=== PATIENT | female | born 1955 | race Caucasian/White ===

== ENCOUNTER → 2018-01-12 11:23 | Outpatient (CLI) | payer BC, SELFPAY ==
[2018-01-12 12:36] LABS: Absolute Lymphocyte Count 1.48 X10^3/ul (0.83-4.51); Absolute Neutrophil Count 4.3 X10^3/uL (2.0-7.7); Basophil# 0.02 X10^3/uL; Basophil% 0.3 % (0-1); Eosinophils% 4.6 % (0-5); Hematocrit 37.6 % (37-47); Hemoglobin 12.1 g/dl (12.0-15.0); Lymphocyte # 1.48 X10^3/ul (4.0); Lymphocyte % 22.5 % (19-41); Mean Corp Hgb Conc 32.2 g/gl (32-36); Mean Corpuscular Hgb 28.6 pg (27.0-32.0); Mean Corpuscular Volume 88.9 fL (81-99); Mean Platelet Vol. 11.8 fl (6.2-12.0); Monocyte# 0.51 X10^3/uL; Monocyte% 7.8 % (0-10); Neutrophil # 4.26 X10^3/uL (2.7-7.7); Neutrophil % 64.6 % (47-70); Platelet Count 218 K/mm3 (150-450); RBC Distribution Width CV 13.9 % (11.6-14.6); RBC Distribution Width SD 44.5 fl (35.1-43.9); Red Blood Count 4.23 M/mm3 (4.2-5.4); White Blood Count 6.6 K/mm3 (4.4-11.0)
[2018-01-12 12:40] LABS: POSITIVE COUNT NO; POSITIVE DIFFERENTIAL NO; POSITIVE MORPHOLOGY NO
[2018-01-12 13:03] LABS: AST(SGOT) 36 U/L (15-37); Alanine Aminotransfer ALT/SGPT 45 U/L (13-56); Albumin, Serum 3.9 g/dL (3.2-5.0); Alkaline Phosphatase 119 U/L (45-117); Anion Gap 11 (5-15); BUN 33 mg/dL (7-18); BUN/Creat Ratio 24.1 RATIO (10-20); Calcium,Total 9.7 mg/dL (8.5-10.1); Chloride 105 mmol/L (98-107); Creatinine, Serum 1.37 mg/dL (0.55-1.02); EST Glomerular Filtration Rate 41 mL/min (>60); Est Glom Filt Rate - Afr Amer 50 mL/min (>60); Glucose 114 mg/dL (74-106); Potassium 4.7 mmol/L (3.5-5.1); Protein, Total 7.9 g/dL (6.4-8.2); Sodium Level 141 mmol/L (136-145); Thyroid Stim Hormone (TSH) 2.06 uIU/mL (0.358-3.74)
[2018-01-12 13:12] LABS: Vitamin D,25 Hydroxy 50.5 ng/mL (29.95-100.01)
== END ==
PROVIDERS: Family Provider Family Medicine Geriatric Medicine; PCP Family Medicine Geriatric Medicine; Visit Provider Family Medicine Geriatric Medicine
DX: E11.9 Type 2 diabetes mellitus without complications (principal); E55.9 Vitamin D deficiency, unspecified; I10 Essential (primary) hypertension
CPT/HCPCS: 36415; 80053; 82306; 84443; 85025

== ENCOUNTER → 2018-04-12 14:21 | Outpatient (CLI) | payer BC, SELFPAY ==
[2018-04-12 15:03] LABS: Absolute Lymphocyte Count 1.99 X10^3/ul (0.83-4.51); Absolute Neutrophil Count 3.8 X10^3/uL (2.0-7.7); Basophil# 0.03 X10^3/uL; Basophil% 0.4 % (0-1); Eosinophil# 0.32 X10^3/uL; Eosinophils% 4.8 % (0-5); Hematocrit 38.9 % (37-47); Hemoglobin 12.4 g/dl (12.0-15.0); Lymphocyte # 1.99 X10^3/ul (4.0); Lymphocyte % 29.7 % (19-41); Mean Corp Hgb Conc 31.9 g/gl (32-36); Mean Corpuscular Hgb 27.6 pg (27.0-32.0); Mean Corpuscular Volume 86.4 fL (81-99); Mean Platelet Vol. 11.4 fl (6.2-12.0); Monocyte# 0.53 X10^3/uL; Monocyte% 7.9 % (0-10); Neutrophil # 3.82 X10^3/uL (2.7-7.7); Neutrophil % 57.2 % (47-70); Platelet Count 237 K/mm3 (150-450); RBC Distribution Width CV 13.9 % (11.6-14.6); RBC Distribution Width SD 43.9 fl (35.1-43.9); White Blood Count 6.7 K/mm3 (4.4-11.0)
[2018-04-12 15:07] LABS: POSITIVE COUNT NO; POSITIVE DIFFERENTIAL NO; POSITIVE MORPHOLOGY NO
[2018-04-12 15:26] LABS: Vitamin D,25 Hydroxy 43.1 ng/mL (29.95-100.01)
[2018-04-12 15:30] LABS: AST(SGOT) 32 U/L (15-37); Alanine Aminotransfer ALT/SGPT 45 U/L (13-56); Alkaline Phosphatase 98 U/L (45-117); Anion Gap 8 (5-15); BUN 34 mg/dL (7-18); BUN/Creat Ratio 26.4 RATIO (10-20); Calcium,Total 9.4 mg/dL (8.5-10.1); Chloride 105 mmol/L (98-107); Creatinine, Serum 1.29 mg/dL (0.55-1.02); EST Glomerular Filtration Rate 44 mL/min (>60); Est Glom Filt Rate - Afr Amer 54 mL/min (>60); Glucose 104 mg/dL (74-106); Potassium 4.1 mmol/L (3.5-5.1); Sodium Level 137 mmol/L (136-145); Thyroid Stim Hormone (TSH) 1.78 uIU/mL (0.358-3.74)
--- OUTSIDE RECORDS SUMMARY | 2018-07-15 06:43 | XMS RPT_ITS ---
:1955 Author Organization [facility] Care Team Providers Name Role Phone Kee, Donta Chi Attending Unavailable Kee, Donta Chi Primary Care Unavailable Kee, Donta Chi Attending Unavailable Kee, Donta Chi Primary Care Unavailable Kee, Donta Chi Attending Unavailable Kee, Donta Chi Primary Care Unavailable PROBLEMS PROBLEMS No Problem Records FoundPROCEDURES PROCEDURES No Procedure Records FoundRESULTS RESULTS CBC W/DIFF, AUTOMATED Collected: 04/12/2018 Status: F Source: [place] 2:26 PM [facility] REPOSITORY TYPE CODE TESTS RESULT OUT OF RANGE REFERENCE UNITS LAB L100.1000 4.4-11.0 K/mm3 Normal WBC 6.7 LAB L100.1200 4.2-5.4 M/mm3 Normal RBC 4.50 LAB L100.1300 12.0-15.0 g/dl Normal HGB 12.4 LAB L100.1400 37-47 % Normal HCT 38.9 LAB L100.1500 81-99 fL Normal MCV 86.4 LAB L100.1600 27.0-32.0 pg Normal MCH 27.6 LAB L100.1700 32-36 g/gl Low MCHC 31.9 LAB L100.1810 11.6-14.6 % Normal RDW CV 13.9 LAB L100.1820 35.1-43.9 fl Normal RDW SD 43.9 LAB L100.1900 150-450 K/mm3 Normal PLT 237 LAB L100.2000 6.2-12.0 fl Normal MPV 11.4 LAB L100.2100 47-70 % Normal NEUT% 57.2 LAB L100.2200 19-41 % Normal LY% 29.7 LAB L100.2300 0-10 % Normal MONO% 7.9 LAB L100.2400 0-5 % Normal EO% 4.8 LAB L100.2500 0-1 % Normal BASO% 0.4 LAB L100.2550 0.0-0.9 % Normal IM GRAN % 0.000 Result Comment: IG% - Immature Granulocytes (promyelocytes, myelocytes and metamyelocytes) > 1% indicates that a LEFT SHIFT is Present. LAB L100.2620 2.0-7.7 X10 3/uL Normal Absolute Neut 3.8 LAB L100.2720 0.83-4.51 X10 3/ul Normal Absolute Lymph 1.99 Performed By: #### L100.0100 #### [facility] [address] [place], [place], [address] VITAMIN D,25 HYDROXY Collected: 04/12/2018 Status: F Source: [place] 2:26 PM [facility] REPOSITORY TYPE CODE TESTS RESULT OUT OF RANGE REFERENCE UNITS LAB L506.1000 29.95-100.01 ng/mL Normal Vitamin D 43.1 25-OH Result Comment: Vitamin D 25(OH) Status Range Deficiency <20 ng/mL (50nmol/L) Insuffciency 20 - 30 ng/mL (50 - 75 nmol/L) Sufficiency 30 - 100 ng/mL (75 - 250 nmol/L) Toxicity >100 ng/mL (>250 nmol/L) Performed By: #### L506.1000 #### [facility] [address] [place], [address] COMPREHENSIVE METABOLIC Collected: 04/12/2018 Status: F Source: [facility] 2:26 PM [facility] REPOSITORY TYPE CODE TESTS RESULT OUT OF RANGE REFERENCE UNITS LAB L501.0100 74-106 mg/dL Normal GLU 104 Result Comment: Fasting Glucose result from 100 to 125 mg/dL suggests IMPAIRED HOMEOSTASIS per A.D.A. criteria. Please note revised GLUCOSE reference range effective 2017. LAB L501.1000 7-18 mg/dL High BUN 34 LAB L501.1100 0.55-1.02 mg/dL High CREAT,SERUM 1.29 Result Comment: The validity of the calculated GFR AND GFRAA in patients over 70 years has not been determined. Clinical correlation is essential. LAB L501.1110 >60 mL/min Low EST GFR 44 Result Comment: Non- GFR Calc LAB L501.1115 >60 mL/min Low EST GFR - AA 54 Result Comment: GFR Calc LAB L501.1300 10-20 RATIO High BUN/CRE 26.4 LAB L501.1500 6.4-8.2 g/dL T Normal PROT 8.0 LAB L501.1800 3.2-5.0 g/dL Normal ALB 4.0 LAB L501.1950 2.2-4.2 g/dL Normal GLOB 4.0 LAB L501.2000 0.9-2.4 RATIO Normal A/G 1.0 LAB L501.2200 8.5-10.1 mg/dL CA Normal 9.4 LAB L501.4100 15-37 U/L Normal AST 32 LAB L501.4305 45-117 U/L Normal ALK P 98 LAB L501.4405 13-56 U/L Normal ALT 45 LAB L501.4600 0.20-1.00 mg/dL T Normal BILI 0.50 LAB L501.5300 136-145 mmol/L NA Normal 137 LAB L501.5600 3.5-5.1 mmol/L K Normal 4.1 LAB L501.5900 98-107 mmol/L CL Normal 105 LAB L501.6100 21.0-32.0 mmol/L Normal CO2 24.0 LAB L501.6200 5-15 Normal GAP 8 Performed By: #### L500.4050, L501.9520 #### [facility] [address] [place], [address] THYROID STIM HORMONE Collected: 04/12/2018 Status: F Source: [place] (TSH) 2:26 PM [facility] REPOSITORY TYPE CODE TESTS RESULT OUT OF RANGE REFERENCE UNITS LAB L501.9520 0.358-3.74 uIU/mL Normal TSH 1.78 Performed By: #### L500.4050, L501.9520 #### [facility] [address] [place], [address] CBC W/DIFF, AUTOMATED Collected: 01/12/2018 Status: F Source: [place] 11:26 AM [facility] REPOSITORY TYPE CODE TESTS RESULT OUT OF RANGE REFERENCE UNITS LAB L100.1000 4.4-11.0 K/mm3 Normal WBC 6.6 LAB L100.1200 4.2-5.4 M/mm3 Normal RBC 4.23 LAB L100.1300 12.0-15.0 g/dl Normal HGB 12.1 LAB L100.1400 37-47 % Normal HCT 37.6 LAB L100.1500 81-99 fL Normal MCV 88.9 LAB L100.1600 27.0-32.0 pg Normal MCH 28.6 LAB L100.1700 32-36 g/gl Normal MCHC 32.2 LAB L100.1810 11.6-14.6 % Normal RDW CV 13.9 LAB L100.1820 35.1-43.9 fl High RDW SD 44.5 LAB L100.1900 150-450 K/mm3 Normal PLT 218 LAB L100.2000 6.2-12.0 fl Normal MPV 11.8 LAB L100.2100 47-70 % Normal NEUT% 64.6 LAB L100.2200 19-41 % Normal LY% 22.5 LAB L100.2300 0-10 % Normal MONO% 7.8 LAB L100.2400 0-5 % Normal EO% 4.6 LAB L100.2500 0-1 % Normal BASO% 0.3 LAB L100.2550 0.0-0.9 % Normal IM GRAN % 0.200 Result Comment: IG% - Immature Granulocytes (promyelocytes, myelocytes and metamyelocytes) > 1% indicates that a LEFT SHIFT is Present. LAB L100.2620 2.0-7.7 X10 3/uL Normal Absolute Neut 4.3 LAB L100.2720 0.83-4.51 X10 3/ul Normal Absolute Lymph 1.48 Performed By: #### L100.0100 #### [facility] [place], [address] COMPREHENSIVE METABOLIC Collected: 01/12/2018 Status: F Source: [place] [facility] 11:26 AM [facility] REPOSITORY TYPE CODE TESTS RESULT OUT OF RANGE REFERENCE UNITS LAB L501.0100 74-106 mg/dL High GLU 114 Result Comment: Fasting Glucose result from 100 to 125 mg/dL suggests IMPAIRED HOMEOSTASIS per A.D.A. criteria. Please note revised GLUCOSE reference range effective 2017. LAB L501.1000 7-18 mg/dL High BUN 33 LAB L501.1100 0.55-1.02 mg/dL High CREAT,SERUM 1.37 Result Comment: The validity of the calculated GFR AND GFRAA in patients over 70 years has not been determined. Clinical correlation is essential. LAB L501.1110 >60 mL/min Low EST GFR 41 Result Comment: Non- GFR Calc LAB L501.1115 >60 mL/min Low EST GFR - AA 50 Result Comment: GFR Calc LAB L501.1300 10-20 RATIO High BUN/CRE 24.1 LAB L501.1500 6.4-8.2 g/dL T Normal PROT 7.9 LAB L501.1800 3.2-5.0 g/dL Normal ALB 3.9 LAB L501.1950 2.2-4.2 g/dL Normal GLOB 4.0 LAB L501.2000 0.9-2.4 RATIO Normal A/G 1.0 LAB L501.2200 8.5-10.1 mg/dL CA Normal 9.7 LAB L501.4100 15-37 U/L Normal AST 36 LAB L501.4305 45-117 U/L High ALK P 119 LAB L501.4405 13-56 U/L Normal ALT 45 LAB L501.4600 0.20-1.00 mg/dL T Normal BILI 0.40 LAB L501.5300 136-145 mmol/L NA Normal 141 LAB L501.5600 3.5-5.1 mmol/L K Normal 4.7 LAB L501.5900 98-107 mmol/L CL Normal 105 LAB L501.6100 21.0-32.0 mmol/L Normal CO2 25.0 LAB L501.6200 5-15 Normal GAP 11 Performed By: #### L500.4050, L501.9520 #### [facility] [address] [place], [place], [id number] THYROID STIM HORMONE Collected: 01/12/2018 Status: F Source: [place] (TSH) 11:26 AM [facility] REPOSITORY TYPE CODE TESTS RESULT OUT OF RANGE REFERENCE UNITS LAB L501.9520 0.358-3.74 uIU/mL Normal TSH 2.06 Performed By: #### L500.4050, L501.9520 #### [facility] [address] [place], [address] VITAMIN D,25 HYDROXY Collected: 01/12/2018 Status: F Source: [place] 11:26 AM [facility] REPOSITORY TYPE CODE TESTS RESULT OUT OF RANGE REFERENCE UNITS LAB L506.1000 29.95-100.01 ng/mL Normal Vitamin D 50.5 25-OH Result Comment: Vitamin D 25(OH) Status Range Deficiency <20 ng/mL (50nmol/L) Insuffciency 20 - 30 ng/mL (50 - 75 nmol/L) Sufficiency 30 - 100 ng/mL (75 - 250 nmol/L) Toxicity >100 ng/mL (>250 nmol/L) Performed By: #### L506.1000 #### [facility] [address] [place], [address] ALLERGIES ALLERGIES No Allergies Records FoundENCOUNTERS ENCOUNTERS ADMIT/DISCHARGE ACCOUNT ADMITTING ENCOUNTER LOCATION SOURCE NUMBER CLASS 04/12/[id number] ing:POLAB3 Repository 01/12/2018 [id number] [facility] ing:POLAB3 Repository 10/27/[id number] ing:LAB.FUTUR Repository E PAYERS PAYERS ENCOUNTER GUARANTOR PAYER SUBSCRIBER SOURCE 04/12/2018 CAN ROTHMAN59 Primary MARION L Koko TR Insurance:ANTHEMPolic WILLISDOB: [address] Number: [id number]: [id number] Repository Date:[id number] [address]OX () [id number], [place] [address]XZ: 04/12/2018 Secondary NOT GIVENUNK Koko Insurance:SELF PAY [facility] Number: Effective Repository Date:2018-04-12 01/12/2018 CAN ROTHMAN59 Primary MARION L Koko TR Insurance:ANTHEMPolic MALCOLMSDOB: [address], y Number: [id number]: [id number] Repository Date:4936-06-72PP [address] () [id number], [place] [address]KN: 01/12/2018 Secondary NOT GIVENUNK [place] Insurance:SELF PAY [facility] Number: Effective Repository Date:2018-01-12 10/27/2017 CAN ROTHMAN59 Primary MARION L Koko TR Insurance:ANTHEMPolic WILLISDOB: [address], y Number: [id number]: [id number] Repository Date:7396-02-98KD [address]OX () [address], [place] [address]HN: 10/27/2017 Secondary NOT GIVENUNK [place] Insurance:SELF PAY [facility] Number: Effective Repository Date:2017-10-27
== END ==
PROVIDERS: Family Provider Family Medicine Geriatric Medicine; PCP Family Medicine Geriatric Medicine; Visit Provider Family Medicine Geriatric Medicine
DX: E11.9 Type 2 diabetes mellitus without complications (principal); E55.9 Vitamin D deficiency, unspecified; I10 Essential (primary) hypertension
CPT/HCPCS: 36415; 80053; 82306; 84443; 85025

== ENCOUNTER → 2018-07-20 11:58 | Outpatient (CLI) | payer BC, SELFPAY ==
[2018-07-20 12:42] LABS: Absolute Lymphocyte Count 1.58 X10^3/ul (0.83-4.51); Absolute Neutrophil Count 4.1 X10^3/uL (2.0-7.7); Basophil# 0.02 X10^3/uL; Basophil% 0.3 % (0-1); Eosinophil# 0.44 X10^3/uL; Eosinophils% 6.5 % (0-5); Hematocrit 40.6 % (37-47); Hemoglobin 12.9 g/dl (12.0-15.0); Lymphocyte # 1.58 X10^3/ul (4.0); Lymphocyte % 23.2 % (19-41); Mean Corp Hgb Conc 31.8 g/gl (32-36); Mean Corpuscular Volume 88.1 fL (81-99); Monocyte# 0.65 X10^3/uL; Monocyte% 9.5 % (0-10); Neutrophil # 4.11 X10^3/uL (2.7-7.7); Neutrophil % 60.2 % (47-70); Platelet Count 216 K/mm3 (150-450); RBC Distribution Width CV 14.8 % (11.6-14.6); RBC Distribution Width SD 47.6 fl (35.1-43.9); Red Blood Count 4.61 M/mm3 (4.2-5.4); White Blood Count 6.8 K/mm3 (4.4-11.0)
[2018-07-20 12:45] LABS: POSITIVE COUNT NO; POSITIVE DIFFERENTIAL NO; POSITIVE MORPHOLOGY NO
[2018-07-20 13:26] LABS: Vitamin D,25 Hydroxy 39.3 ng/mL (29.95-100.01)
[2018-07-20 13:34] LABS: AST(SGOT) 42 U/L (15-37); Alanine Aminotransfer ALT/SGPT 52 U/L (13-56); Albumin, Serum 4.1 g/dL (3.2-5.0); Alkaline Phosphatase 101 U/L (45-117); Anion Gap 9 (5-15); BUN 29 mg/dL (7-18); BUN/Creat Ratio 21.3 RATIO (10-20); Calcium,Total 9.7 mg/dL (8.5-10.1); Chloride 106 mmol/L (98-107); Creatinine, Serum 1.36 mg/dL (0.55-1.02); EST Glomerular Filtration Rate 42 mL/min (>60); Est Glom Filt Rate - Afr Amer 50 mL/min (>60); Glucose 106 mg/dL (74-106); Potassium 4.9 mmol/L (3.5-5.1); Protein, Total 8.1 g/dL (6.4-8.2); Sodium Level 140 mmol/L (136-145); Thyroid Stim Hormone (TSH) 2.72 uIU/mL (0.358-3.74)
== END ==
PROVIDERS: Family Provider Family Medicine Geriatric Medicine; PCP Family Medicine Geriatric Medicine; Visit Provider Family Medicine Geriatric Medicine
DX: E11.9 Type 2 diabetes mellitus without complications (principal); E55.9 Vitamin D deficiency, unspecified; I10 Essential (primary) hypertension
CPT/HCPCS: 36415; 80053; 82306; 84443; 85025

== ENCOUNTER → 2018-11-04 | Outpatient (CLI) | payer BC, SELFPAY ==
[2018-11-04 12:26] LABS: Absolute Lymphocyte Count 1.16 X10^3/ul (0.83-4.51); Absolute Neutrophil Count 4.2 X10^3/uL (2.0-7.7); Basophil# 0.02 X10^3/uL; Basophil% 0.3 % (0-1); Eosinophil# 0.33 X10^3/uL; Eosinophils% 5.4 % (0-5); Hematocrit 41.3 % (37-47); Hemoglobin 13.3 g/dl (12.0-15.0); Lymphocyte # 1.16 X10^3/ul (4.0); Mean Corp Hgb Conc 32.2 g/gl (32-36); Mean Corpuscular Hgb 27.5 pg (27.0-32.0); Mean Corpuscular Volume 85.5 fL (81-99); Monocyte# 0.42 X10^3/uL; Monocyte% 6.9 % (0-10); Neutrophil # 4.17 X10^3/uL (2.7-7.7); Neutrophil % 68.2 % (47-70); Platelet Count 211 K/mm3 (150-450); RBC Distribution Width CV 14.1 % (11.6-14.6); RBC Distribution Width SD 43.3 fl (35.1-43.9); Red Blood Count 4.83 M/mm3 (4.2-5.4); White Blood Count 6.1 K/mm3 (4.4-11.0)
[2018-11-04 12:39] LABS: POSITIVE COUNT NO; POSITIVE DIFFERENTIAL NO; POSITIVE MORPHOLOGY NO
[2018-11-04 12:42] LABS: Vitamin D,25 Hydroxy 30.3 ng/mL (29.95-100.01)
[2018-11-04 12:45] LABS: AST(SGOT) 37 U/L (15-37); Alanine Aminotransfer ALT/SGPT 47 U/L (13-56); Albumin, Serum 4.1 g/dL (3.2-5.0); Alkaline Phosphatase 100 U/L (45-117); Anion Gap 9 (5-15); BUN 32 mg/dL (7-18); BUN/Creat Ratio 22.1 RATIO (10-20); Calcium,Total 9.7 mg/dL (8.5-10.1); Chloride 107 mmol/L (98-107); Creatinine, Serum 1.45 mg/dL (0.55-1.02); EST Glomerular Filtration Rate 39 mL/min (>60); Est Glom Filt Rate - Afr Amer 47 mL/min (>60); Globulin 4.2 g/dL (2.2-4.2); Glucose 116 mg/dL (74-106); Potassium 4.4 mmol/L (3.5-5.1); Protein, Total 8.3 g/dL (6.4-8.2); Sodium Level 140 mmol/L (136-145); Thyroid Stim Hormone (TSH) 1.99 uIU/mL (0.358-3.74)
== END | disposition home or self-care (01) ==
LOC: POLAB3 10:23
PROVIDERS: Family Provider Family Medicine Geriatric Medicine; PCP Family Medicine Geriatric Medicine; Visit Provider Family Medicine Geriatric Medicine
DX: E11.9 Type 2 diabetes mellitus without complications (principal); E55.9 Vitamin D deficiency, unspecified; I10 Essential (primary) hypertension
CPT/HCPCS: 36415; 80053; 82306; 84443; 85025

== ENCOUNTER → 2019-05-13 08:52 | Outpatient (CLI) | payer MEDICARE, SELFPAY ==
[2019-05-13 13:00] LABS: Absolute Lymphocyte Count 1.62 X10^3/uL (0.83-4.51); Absolute Neutrophil Count 4.8 X10^3/uL (2.0-7.7); Basophil# 0.06 X10^3/uL; Basophil% 0.8 % (0-1); Eosinophils% 6.6 % (0-5); Hematocrit 39.5 % (37-47); Hemoglobin 12.6 g/dL (12.0-15.0); Lymphocyte # 1.62 X10^3/ul (4.0); Lymphocyte % 21.3 % (19-41); Mean Corp Hgb Conc 31.9 g/dL (32-36); Mean Corpuscular Hgb 28.1 pg (27.0-32.0); Mean Corpuscular Volume 88.2 fL (81-99); Mean Platelet Vol. 11.7 fl (6.2-12.0); Monocyte# 0.56 X10^3/uL; Monocyte% 7.4 % (0-10); NRBC Flagged by Analyzer 0 % (0-5); Neutrophil # 4.84 X10^3/uL (2.7-7.7); Neutrophil % 63.5 % (47-70); Platelet Count 235 K/mm3 (150-450); RBC Distribution Width CV 14.6 % (11.6-14.6); RBC Distribution Width SD 46.8 fl (35.1-43.9); Red Blood Count 4.48 M/mm3 (4.2-5.4); White Blood Count 7.6 K/mm3 (4.4-11.0)
[2019-05-13 13:36] LABS: Vitamin D,25 Hydroxy 28.9 ng/mL (29.95-100.01)
[2019-05-13 13:38] LABS: AST(SGOT) 30 U/L (15-37); Alanine Aminotransfer ALT/SGPT 42 U/L (13-56); Alkaline Phosphatase 105 U/L (45-117); Anion Gap 9 (5-15); BUN 24 mg/dL (7-18); BUN/Creat Ratio 19.7 RATIO (10-20); Calcium,Total 10.1 mg/dL (8.5-10.1); Chloride 105 mmol/L (98-107); Creatinine, Serum 1.22 mg/dL (0.55-1.02); EST Glomerular Filtration Rate 47 mL/min (>60); Est Glom Filt Rate - Afr Amer 57 mL/min (>60); Globulin 4.1 g/dL (2.2-4.2); Glucose 104 mg/dL (74-106); Potassium 4.1 mmol/L (3.5-5.1); Protein, Total 8.1 g/dL (6.4-8.2); Sodium Level 139 mmol/L (136-145); Thyroid Stim Hormone (TSH) 1.85 uIU/mL (0.358-3.74)
== END ==
PROVIDERS: PCP Family Medicine Geriatric Medicine; Visit Provider Family Medicine Geriatric Medicine
DX: E11.9 Type 2 diabetes mellitus without complications (principal); E55.9 Vitamin D deficiency, unspecified; I10 Essential (primary) hypertension
CPT/HCPCS: 36415; 80053; 82306; 84443; 85025

== ENCOUNTER → 2019-11-08 11:28 | Outpatient (CLI) | payer MEDICARE, SELFPAY ==
[2019-11-08 12:12] LABS: Absolute Lymphocyte Count 1.46 X10^3/uL (0.83-4.51); Basophil# 0.04 X10^3/uL; Basophil% 0.5 % (0-1); Eosinophil# 0.23 X10^3/uL; Eosinophils% 3.1 % (0-5); Hematocrit 39.3 % (37-47); Hemoglobin 12.7 g/dL (12.0-15.0); Lymphocyte # 1.46 X10^3/ul (4.0); Lymphocyte % 19.9 % (19-41); Mean Corp Hgb Conc 32.3 g/dL (32-36); Mean Corpuscular Hgb 29.3 pg (27.0-32.0); Mean Corpuscular Volume 90.6 fL (81-99); Mean Platelet Vol. 11.9 fl (6.2-12.0); Monocyte# 0.55 X10^3/uL; Monocyte% 7.5 % (0-10); NRBC Flagged by Analyzer 0 % (0-5); Neutrophil # 5.01 X10^3/uL (2.7-7.7); Neutrophil % 68.6 % (47-70); Platelet Count 232 K/mm3 (150-450); RBC Distribution Width SD 42.8 fl (35.1-43.9); Red Blood Count 4.34 M/mm3 (4.2-5.4); White Blood Count 7.3 K/mm3 (4.4-11.0)
[2019-11-08 12:26] LABS: Vitamin D,25 Hydroxy 29.6 ng/mL
[2019-11-08 12:38] LABS: AST(SGOT) 37 U/L (15-37); Alanine Aminotransfer ALT/SGPT 44 U/L (13-56); Albumin, Serum 4.1 g/dL (3.2-5.0); Alkaline Phosphatase 102 U/L (45-117); Anion Gap 6 (5-15); BUN 35 mg/dL (7-18); BUN/Creat Ratio 23.8 RATIO (10-20); Calcium,Total 9.7 mg/dL (8.5-10.1); Chloride 103 mmol/L (98-107); Creatinine, Serum 1.47 mg/dL (0.55-1.02); EST Glomerular Filtration Rate 38 mL/min (>60); Est Glom Filt Rate - Afr Amer 46 mL/min (>60); Globulin 4.1 g/dL (2.2-4.2); Glucose 106 mg/dL (74-106); Potassium 4.9 mmol/L (3.5-5.1); Protein, Total 8.2 g/dL (6.4-8.2); Sodium Level 135 mmol/L (136-145)
== END ==
PROVIDERS: PCP Family Medicine Geriatric Medicine; Visit Provider Family Medicine Geriatric Medicine
DX: E11.9 Type 2 diabetes mellitus without complications (principal); E55.9 Vitamin D deficiency, unspecified; I10 Essential (primary) hypertension
CPT/HCPCS: 36415; 80053; 82306; 84443; 85025

== ENCOUNTER → 2020-05-17 13:42 | Outpatient (CLI) | payer MEDICARE, SELFPAY ==
[2020-05-17 17:55] LABS: Absolute Lymphocyte Count 1.83 X10^3/uL (0.83-4.51); Absolute Neutrophil Count 6.8 X10^3/uL (2.0-7.7); Basophil# 0.04 X10^3/uL; Basophil% 0.4 % (0-1); Eosinophil# 0.26 X10^3/uL; Eosinophils% 2.7 % (0-5); Hematocrit 43.4 % (37-47); Hemoglobin 13.9 g/dL (12.0-15.0); Lymphocyte # 1.83 X10^3/ul (4.0); Lymphocyte % 18.8 % (19-41); Mean Corpuscular Hgb 28.2 pg (27.0-32.0); Mean Platelet Vol. 11.7 fl (6.2-12.0); Monocyte# 0.75 X10^3/uL; Monocyte% 7.7 % (0-10); NRBC Flagged by Analyzer 0 % (0-5); Platelet Count 304 K/mm3 (150-450); Red Blood Count 4.93 M/mm3 (4.2-5.4); White Blood Count 9.7 K/mm3 (4.4-11.0)
[2020-05-17 18:14] LABS: Vitamin D,25 Hydroxy 20.5 ng/mL
[2020-05-17 18:33] LABS: AST(SGOT) 58 U/L (15-37); Alanine Aminotransfer ALT/SGPT 78 U/L (13-56); Albumin, Serum 4.5 g/dL (3.2-5.0); Alkaline Phosphatase 116 U/L (45-117); Anion Gap 7 (5-15); BUN 36 mg/dL (7-18); BUN/Creat Ratio 20.6 RATIO (10-20); Calcium,Total 9.7 mg/dL (8.5-10.1); Chloride 100 mmol/L (98-107); Creatinine, Serum 1.75 mg/dL (0.55-1.02); EST Glomerular Filtration Rate 31 mL/min (>60); Est Glom Filt Rate - Afr Amer 37 mL/min (>60); Globulin 4.5 g/dL (2.2-4.2); Glucose 96 mg/dL (74-106); Potassium 4.2 mmol/L (3.5-5.1); Sodium Level 134 mmol/L (136-145); Thyroid Stim Hormone (TSH) 1.59 uIU/mL (0.358-3.74)
== END ==
PROVIDERS: PCP Family Medicine Geriatric Medicine; Visit Provider Family Medicine Geriatric Medicine
DX: E11.9 Type 2 diabetes mellitus without complications (principal); E55.9 Vitamin D deficiency, unspecified; I10 Essential (primary) hypertension
CPT/HCPCS: 36415; 80053; 82306; 84443; 85025

== ENCOUNTER → 2020-07-12 10:02 | Outpatient (CLI) | payer MEDICARE, SELFPAY ==
[2020-07-12 12:33] LABS: BUN 35 mg/dL (7-18); BUN/Creat Ratio 21.1 RATIO (10-20); Calcium,Total 9.5 mg/dL (8.5-10.1); Chloride 101 mmol/L (98-107); Creatinine, Serum 1.66 mg/dL (0.55-1.02); EST Glomerular Filtration Rate 33 mL/min (>60); Est Glom Filt Rate - Afr Amer 40 mL/min (>60); Glucose 142 mg/dL (74-106); Phosphorus 3.5 mg/dL (2.5-4.9); Potassium 4.5 mmol/L (3.5-5.1); Sodium Level 135 mmol/L (136-145)
[2020-07-12 12:45] LABS: Microalbumin,Random Urine 8.9 mg/L (NO RANGE EST.); Microalbumin:Creatinine Ratio 30.2 mg/g CRE (<30 mg/g CRE)
== END ==
PROVIDERS: PCP Family Medicine Geriatric Medicine; Visit Provider Internal Medicine Nephrology
DX: N17.9 Acute kidney failure, unspecified (principal); E11.9 Type 2 diabetes mellitus without complications
CPT/HCPCS: 36415; 80069; 82043; 82570

== ENCOUNTER → 2020-09-13 08:42 | Outpatient (CLI) | payer MEDICARE, SELFPAY ==
[2020-09-13 09:07] LABS: Hematocrit 39.8 % (37-47); Hemoglobin 12.4 g/dL (12.0-15.0); Mean Corp Hgb Conc 31.2 g/dL (32-36); Mean Corpuscular Hgb 28.2 pg (27.0-32.0); Mean Corpuscular Volume 90.5 fL (81-99); Mean Platelet Vol. 10.5 fl (6.2-12.0); Platelet Count 298 K/mm3 (150-450); RBC Distribution Width CV 13.1 % (11.6-14.6); RBC Distribution Width SD 42.8 fl (35.1-43.9); White Blood Count 8.8 K/mm3 (4.4-11.0)
[2020-09-13 09:31] LABS: Albumin, Serum 3.9 g/dL (3.2-5.0); BUN 26 mg/dL (7-18); BUN/Creat Ratio 19.1 RATIO (10-20); Calcium,Total 9.7 mg/dL (8.5-10.1); Chloride 105 mmol/L (98-107); Creatinine, Serum 1.36 mg/dL (0.55-1.02); EST Glomerular Filtration Rate 41 mL/min (>60); Est Glom Filt Rate - Afr Amer 50 mL/min (>60); Glucose 160 mg/dL (74-106); Phosphorus 3.5 mg/dL (2.5-4.9); Potassium 4.6 mmol/L (3.5-5.1); Sodium Level 137 mmol/L (136-145)
== END ==
PROVIDERS: PCP Family Medicine Geriatric Medicine; Referring Provider Internal Medicine Nephrology; Visit Provider Internal Medicine Nephrology
DX: N18.30 Chronic kidney disease, stage 3 unspecified (principal)
CPT/HCPCS: 36415; 80069; 85027

== ENCOUNTER → 2020-11-19 09:33 | Outpatient (CLI) | payer MEDICARE, SELFPAY ==
[2020-11-19 12:44] LABS: Absolute Lymphocyte Count 1.65 X10^3/uL (0.83-4.51); Basophil# 0.03 X10^3/uL; Basophil% 0.4 % (0-1); Eosinophil# 0.31 X10^3/uL; Hematocrit 39.3 % (37-47); Hemoglobin 12.6 g/dL (12.0-15.0); Lymphocyte # 1.65 X10^3/ul (0.83-4.51); Lymphocyte % 21.5 % (19-41); Mean Corp Hgb Conc 32.1 g/dL (32-36); Mean Corpuscular Hgb 28.4 pg (27.0-32.0); Mean Corpuscular Volume 88.5 fL (81-99); Mean Platelet Vol. 11.9 fl (6.2-12.0); Monocyte% 7.8 % (0-10); NRBC Flagged by Analyzer 0 % (0-5); Neutrophil # 5.04 X10^3/uL (2.7-7.7); Neutrophil % 65.9 % (47-70); Platelet Count 233 K/mm3 (150-450); RBC Distribution Width CV 13.8 % (11.6-14.6); RBC Distribution Width SD 45.1 fl (35.1-43.9); Red Blood Count 4.44 M/mm3 (4.2-5.4); White Blood Count 7.7 K/mm3 (4.4-11.0)
[2020-11-19 12:48] LABS: Vitamin D,25 Hydroxy 26.6 ng/mL
[2020-11-19 13:21] LABS: AST(SGOT) 40 U/L (15-37); Alanine Aminotransfer ALT/SGPT 53 U/L (13-56); Albumin, Serum 4.1 g/dL (3.2-5.0); Alkaline Phosphatase 97 U/L (45-117); Anion Gap 9 (5-15); BUN 38 mg/dL (7-18); BUN/Creat Ratio 25.2 RATIO (10-20); Calcium,Total 9.5 mg/dL (8.5-10.1); Chloride 100 mmol/L (98-107); Creatinine, Serum 1.51 mg/dL (0.55-1.02); EST Glomerular Filtration Rate 37 mL/min (>60); Est Glom Filt Rate - Afr Amer 44 mL/min (>60); Glucose 134 mg/dL (74-106); Potassium 4.5 mmol/L (3.5-5.1); Protein, Total 8.1 g/dL (6.4-8.2); Sodium Level 133 mmol/L (136-145); Thyroid Stim Hormone (TSH) 2.42 uIU/mL (0.358-3.74)
== END ==
PROVIDERS: PCP Family Medicine Geriatric Medicine; Visit Provider Family Medicine Geriatric Medicine
DX: E11.9 Type 2 diabetes mellitus without complications (principal); E55.9 Vitamin D deficiency, unspecified; I10 Essential (primary) hypertension
CPT/HCPCS: 36415; 80053; 82306; 84443; 85025

== ENCOUNTER 2021-05-21 09:45 | Outpatient (CLI) | payer MEDICARE, SELFPAY ==
[2021-05-21 11:07] LABS: Absolute Lymphocyte Count 1.23 X10^3/uL (0.83-4.51); Absolute Neutrophil Count 5.7 X10^3/uL (2.0-7.7); Basophil# 0.04 X10^3/uL; Basophil% 0.5 % (0-1); Eosinophil# 0.55 X10^3/uL; Eosinophils% 6.7 % (0-5); Hematocrit 38.9 % (37-47); Hemoglobin 12.2 g/dL (12.0-15.0); Lymphocyte # 1.23 X10^3/ul (0.83-4.51); Lymphocyte % 15.1 % (19-41); Mean Corp Hgb Conc 31.4 g/dL (32-36); Mean Corpuscular Hgb 28.3 pg (27.0-32.0); Mean Corpuscular Volume 90.3 fL (81-99); Mean Platelet Vol. 10.7 fl (6.2-12.0); Monocyte# 0.61 X10^3/uL; Monocyte% 7.5 % (0-10); NRBC Flagged by Analyzer 0 % (0-5); Neutrophil # 5.67 X10^3/uL (2.7-7.7); Neutrophil % 69.6 % (47-70); Platelet Count 270 K/mm3 (150-450); RBC Distribution Width CV 13.4 % (11.6-14.6); RBC Distribution Width SD 43.9 fl (35.1-43.9); Red Blood Count 4.31 M/mm3 (4.2-5.4); White Blood Count 8.2 K/mm3 (4.4-11.0)
[2021-05-21 11:27] LABS: ALB/GLOB Ratio 0.8 RATIO (0.9-2.4); AST(SGOT) 35 U/L (15-37); Alanine Aminotransfer ALT/SGPT 44 U/L (13-56); Albumin, Serum 3.7 g/dL (3.2-5.0); Alkaline Phosphatase 105 U/L (45-117); Anion Gap 5 (5-15); BUN 32 mg/dL (7-18); BUN/Creat Ratio 23.7 RATIO (10-20); Calcium,Total 9.8 mg/dL (8.5-10.1); Chloride 104 mmol/L (98-107); Creatinine, Serum 1.35 mg/dL (0.55-1.02); EST Glomerular Filtration Rate 42 mL/min (>60); Est Glom Filt Rate - Afr Amer 50 mL/min (>60); Globulin 4.5 g/dL (2.2-4.2); Glucose 145 mg/dL (74-106); Potassium 4.8 mmol/L (3.5-5.1); Protein, Total 8.2 g/dL (6.4-8.2); Sodium Level 135 mmol/L (136-145); Thyroid Stim Hormone (TSH) 2.34 uIU/mL (0.358-3.74)
[2021-05-21 12:17] LABS: Vitamin D,25 Hydroxy 32.6 ng/mL
== END 2021-05-21 23:59 | disposition short-term general hospital (02) ==
PROVIDERS: PCP Family Medicine Geriatric Medicine; Visit Provider Family Medicine Geriatric Medicine
DX: E11.9 Type 2 diabetes mellitus without complications (principal); E55.9 Vitamin D deficiency, unspecified; I10 Essential (primary) hypertension
CPT/HCPCS: 36415; 80053; 82306; 84443; 85025; 86769

== ENCOUNTER → 2022-12-01 | Outpatient (CLI) | payer MEDICARE, SELFPAY ==
[2022-12-01 17:58] LABS: Absolute Lymphocyte Count 1.16 X10^3/uL (0.83-4.51); Basophil# 0.04 X10^3/uL; Basophil% 0.4 % (0-1); Eosinophil# 0.17 X10^3/uL; Eosinophils% 1.8 % (0-5); Hematocrit 32.1 % (37-47); Hemoglobin 10.9 g/dL (12.0-15.0); Lymphocyte # 1.16 X10^3/ul (0.83-4.51); Lymphocyte % 12.3 % (19-41); Mean Corpuscular Hgb 29.5 pg (27.0-32.0); Mean Platelet Vol. 10.5 fl (6.2-12.0); Monocyte# 0.91 X10^3/uL; Monocyte% 9.7 % (0-10); NRBC Flagged by Analyzer 0 % (0-5); Neutrophil # 6.99 X10^3/uL (2.7-7.7); Neutrophil % 74.1 % (47-70); Platelet Count 355 K/mm3 (150-450); RBC Distribution Width CV 13.8 % (11.6-14.6); RBC Distribution Width SD 43.9 fl (35.1-43.9); Red Blood Count 3.69 M/mm3 (4.2-5.4); White Blood Count 9.4 K/mm3 (4.4-11.0)
[2022-12-01 18:20] LABS: Vitamin D,25 Hydroxy 16.3 ng/mL
[2022-12-01 18:38] LABS: ALB/GLOB Ratio 0.5 RATIO (0.9-2.4); AST(SGOT) 43 U/L (15-37); Alanine Aminotransfer ALT/SGPT 40 U/L (13-56); Albumin, Serum 2.4 g/dL (3.2-5.0); Alkaline Phosphatase 218 U/L (45-117); Anion Gap 7 (5-15); BUN 20 mg/dL (7-18); BUN/Creat Ratio 17.2 RATIO (10-20); Calcium,Total 8.9 mg/dL (8.5-10.1); Chloride 104 mmol/L (98-107); Creatinine, Serum 1.16 mg/dL (0.55-1.02); EST Glomerular Filtration Rate 49 mL/min (>60); Est Glom Filt Rate - Afr Amer 60 mL/min (>60); Globulin 4.5 g/dL (2.2-4.2); Glucose 173 mg/dL (74-106); Protein, Total 6.9 g/dL (6.4-8.2); Sodium Level 136 mmol/L (136-145); Thyroid Stim Hormone (TSH) 4.23 uIU/mL (0.358-3.74)
== END | disposition home or self-care (01) ==
PROVIDERS: PCP Family Medicine Geriatric Medicine; Visit Provider Family Medicine Geriatric Medicine
DX: E11.9 Type 2 diabetes mellitus without complications (principal); I10 Essential (primary) hypertension; E55.9 Vitamin D deficiency, unspecified
CPT/HCPCS: 36415; 80053; 82306; 84443; 85025

== ENCOUNTER → 2023-01-01 | Outpatient (CLI) | payer MEDICARE, SELFPAY ==
[2023-01-01 13:11] LABS: Hemoglobin A1c 8.8 % (3.8-5.6)
[2023-01-01 13:16] LABS: Thyroid Stim Hormone (TSH) 2.33 uIU/mL (0.358-3.74)
== END | disposition home or self-care (01) ==
LOC: POLAB3 11:17
PROVIDERS: PCP Family Medicine Geriatric Medicine; Visit Provider Family Medicine Geriatric Medicine
DX: E11.65 Type 2 diabetes mellitus with hyperglycemia (principal); I10 Essential (primary) hypertension
CPT/HCPCS: 36415; 83036; 84443

== ENCOUNTER → 2023-02-20 | Outpatient (CLI) | payer MEDICARE, SELFPAY ==
--- NOTE | 2023-02-20 08:39 | ECHOD_ITS ---
Reason For Study: CAD/ASHD Procedure This was a 2D Doppler, Color Flow transthoracic echocardiogram. Myocardial strain analysis was performed in this exam to aid in the assessment of cardiac function. Exam performed in department. Left Ventricle Normal LV size. The left ventricular ejection fraction is 30 %. Moderately severe segmental systolic dysfunction (see wall motion). Stage 1 diastolic dysfunction. Infero-Basal: Akinetic. Mid-Inferior: Akinetic. Basal inferoseptal: Akinetic. Septal [place] : Akinetic. Lateral-Basal: Hypokinetic. Posterior-Basal: Hypokinetic. Mid-anteroseptal : Severely Hypokinetic. Right Ventricle Normal RV size. ICD or pacer leads identified within the right ventricle. Normal systolic function. Atria Normal left atrium. ICD or pacer leads identified within the right atrium. Bubble contrast study negative for right to left interatrial shunt. Mitral Valve Normal mitral valve. Mild (1+) eccentric mitral valve insufficiency. Tricuspid Valve Normal tricuspid valve. Mild tricuspid valve insufficiency. Pulmonary artery systolic pressure is 33 mmHg. Aortic Valve Trisinus/trileaflet aortic valve. Mild diffuse aortic valve thickening. Pulmonic Valve Normal pulmonic valve. Great Vessels Normal aortic root. The pulmonary artery is normal size. Normal inferior vena cava. Pericardium/Pleural No pericardial effusion. Medication 22 gauge I.V. with prn adaptor inserted into right arm. Performed a rapid injection of agitated mix of 9 cc saline and 1cc air to assess for atrial septal defect. MMode/2D Measurements & Calculations LVIDd: 5.0 cm IVSd: 0.93 cm Ao root diam: 3.5 cm LVIDs: 4.6 cm LVPWd: 0.85 cm LA dimension: 3.9 cm RVDd: 3.3 cm FS: 7.7 % LAV(MOD-bp): 46.8 ml LVAd ap4: 27.5 cm2 SV(MOD-sp4): 26.2 ml LAV(MOD-bp) Indexed: 28.9 ml/m2 LVLd ap4: 7.3 cm LAV(MOD-sp2): 37.2 ml EDV(MOD-sp4): 82.4 ml LAV(MOD-sp4): 58.2 ml EDV(sp4-el): 88.2 ml LVAs ap4: 21.7 cm2 LVLs ap4: 6.6 cm ESV(MOD-sp4): 56.2 ml ESV(sp4-el): 60.3 ml EF(MOD-sp4): 31.8 % EF(sp4-el): 31.6 % SV(sp4-el): 27.9 ml LA A4 area: 19.9 cm2 RA A4 area: 11.3 cm2 TAPSE: 1.9 cm Time Measurements MV dec time: 0.15 sec Doppler Measurements & Calculations MV E max marques: 73.5 cm/sec Lat Peak E' Marques: 12.2 cm/sec Med Peak E' Marques: 7.3 cm/sec MV A max marques: 88.2 cm/sec E/E' lat: 6.0 E/E' med: 10.0 MV E/A: 0.83 MV V2 max: 105.1 cm/sec MV P1/2t max marques: 89.8 cm/sec MR max marques: 502.5 cm/sec MV max P.4 mmHg MV P1/2t: 49.0 msec MR max P.0 mmHg MV V2 mean: 60.8 cm/sec MV mean P.8 mmHg MV dec slope: 536.6 cm/sec2 MV V2 VTI: 18.7 cm MVA(P1/2t): 4.5 cm2 PA V2 max: 90.5 cm/sec TR max marques: 271.7 cm/sec TR max P.5 mmHg ECHO/Echo Complete Interpretation Summary The left ventricular ejection fraction is 30 %. Normal LV size. Moderately severe segmental systolic dysfunction (see wall motion). Bubble contrast study negative for right to left interatrial shunt. Mild (1+) eccentric mitral valve insufficiency. Stage 1 diastolic dysfunction. The global longitudinal strain is severely abnormal. The global longitudinal st rain = -10.9% (abnormal). Ordering Physician: Thomas Hollis Referring Physician: Donta Sweet Chi Performed By: Saulo Johnson RCS
== END | disposition home or self-care (01) ==
LOC: CVS 08:33
PROVIDERS: PCP Family Medicine Geriatric Medicine; Referring Provider Internal Medicine Cardiovascular Disease; Visit Provider Internal Medicine Cardiovascular Disease
DX: I25.10 Atherosclerotic heart disease of native coronary artery without angina pectoris (principal)
CPT/HCPCS: 93306; A4216

== ENCOUNTER → 2023-03-10 | Outpatient (CLI) | payer MEDICARE, SELFPAY ==
[2023-03-10 12:05] LABS: Absolute Lymphocyte Count 1.49 X10^3/uL (0.83-4.51); Absolute Neutrophil Count 5.8 X10^3/uL (2.0-7.7); Basophil# 0.05 X10^3/uL; Basophil% 0.6 % (0-1); Eosinophil# 0.32 X10^3/uL; Eosinophils% 3.8 % (0-5); Hematocrit 38.6 % (37-47); Hemoglobin 12.5 g/dL (12.0-15.0); Lymphocyte # 1.49 X10^3/ul (0.83-4.51); Lymphocyte % 17.9 % (19-41); Mean Corp Hgb Conc 32.4 g/dL (32-36); Mean Corpuscular Hgb 29.4 pg (27.0-32.0); Mean Corpuscular Volume 90.8 fL (81-99); Mean Platelet Vol. 11.2 fl (6.2-12.0); Monocyte# 0.61 X10^3/uL; Monocyte% 7.3 % (0-10); NRBC Flagged by Analyzer 0 % (0-5); Neutrophil # 5.84 X10^3/uL (2.7-7.7); Platelet Count 224 K/mm3 (150-450); RBC Distribution Width CV 15.1 % (11.6-14.6); RBC Distribution Width SD 50.2 fl (35.1-43.9); Red Blood Count 4.25 M/mm3 (4.2-5.4); White Blood Count 8.3 K/mm3 (4.4-11.0)
[2023-03-10 12:20] LABS: Vitamin D,25 Hydroxy 32.7 ng/mL
[2023-03-10 12:33] LABS: ALB/GLOB Ratio 0.9 RATIO (0.9-2.4); AST(SGOT) 30 U/L (15-37); Alanine Aminotransfer ALT/SGPT 29 U/L (13-56); Albumin, Serum 3.8 g/dL (3.2-5.0); Alkaline Phosphatase 113 U/L (45-117); Anion Gap 6 (5-15); BUN 30 mg/dL (7-18); BUN/Creat Ratio 23.6 RATIO (10-20); Calcium,Total 9.8 mg/dL (8.5-10.1); Chloride 107 mmol/L (98-107); Creatinine, Serum 1.27 mg/dL (0.55-1.02); EST Glomerular Filtration Rate 44 mL/min (>60); Est Glom Filt Rate - Afr Amer 54 mL/min (>60); Globulin 4.2 g/dL (2.2-4.2); Glucose 101 mg/dL (74-106); Potassium 4.6 mmol/L (3.5-5.1); Sodium Level 138 mmol/L (136-145); Thyroid Stim Hormone (TSH) 1.46 uIU/mL (0.358-3.74)
== END | disposition home or self-care (01) ==
LOC: POLAB3 11:17
PROVIDERS: PCP Family Medicine Geriatric Medicine; Visit Provider Family Medicine Geriatric Medicine
DX: E11.65 Type 2 diabetes mellitus with hyperglycemia (principal); I10 Essential (primary) hypertension; E55.9 Vitamin D deficiency, unspecified
CPT/HCPCS: 36415; 80053; 82306; 84443; 85025

== ENCOUNTER → 2023-06-01 | Outpatient (CLI) | payer MEDICARE, SELFPAY ==
[2023-06-01 10:39] LABS: Absolute Lymphocyte Count 1.23 X10^3/uL (0.83-4.51); Basophil# 0.04 X10^3/uL; Basophil% 0.6 % (0-1); Eosinophil# 0.28 X10^3/uL; Hematocrit 39.8 % (37-47); Hemoglobin 12.9 g/dL (12.0-15.0); Lymphocyte # 1.23 X10^3/ul (0.83-4.51); Lymphocyte % 17.4 % (19-41); Mean Corp Hgb Conc 32.4 g/dL (32-36); Mean Corpuscular Volume 89.4 fL (81-99); Mean Platelet Vol. 11.1 fl (6.2-12.0); Monocyte# 0.47 X10^3/uL; Monocyte% 6.6 % (0-10); NRBC Flagged by Analyzer 0 % (0-5); Neutrophil # 5.03 X10^3/uL (2.7-7.7); Platelet Count 234 K/mm3 (150-450); RBC Distribution Width CV 15.6 % (11.6-14.6); Red Blood Count 4.45 M/mm3 (4.2-5.4); White Blood Count 7.1 K/mm3 (4.4-11.0)
[2023-06-01 11:03] LABS: Vitamin D,25 Hydroxy 21.6 ng/mL
[2023-06-01 11:12] LABS: ALB/GLOB Ratio 0.9 RATIO (0.9-2.4); AST(SGOT) 29 U/L (15-37); Alanine Aminotransfer ALT/SGPT 35 U/L (13-56); Albumin, Serum 3.8 g/dL (3.2-5.0); Alkaline Phosphatase 111 U/L (45-117); Anion Gap 7 (5-15); BUN 33 mg/dL (7-18); BUN/Creat Ratio 29.5 RATIO (10-20); Bilirubin, Direct 0.12 mg/dL (0.00-0.30); Calcium,Total 9.9 mg/dL (8.5-10.1); Chloride 106 mmol/L (98-107); Cholesterol 131 mg/dL (200); Creatinine, Serum 1.12 mg/dL (0.55-1.02); EST Glomerular Filtration Rate 51 mL/min (>60); Est Glom Filt Rate - Afr Amer 62 mL/min (>60); Globulin 4.1 g/dL (2.2-4.2); Glucose 109 mg/dL (74-106); High Density Lipoprotein 47 mg/dL; Potassium 4.6 mmol/L (3.5-5.1); Protein, Total 7.9 g/dL (6.4-8.2); Sodium Level 135 mmol/L (136-145); Thyroid Stim Hormone (TSH) 1.44 uIU/mL (0.358-3.74); Triglycerides 105 mg/dL; Very Low Density Lipoprotein 21 mg/dL (5-40)
== END | disposition home or self-care (01) ==
LOC: POLAB3 09:07
PROVIDERS: Internal Medicine Cardiovascular Disease; PCP Family Medicine Geriatric Medicine; Visit Provider Family Medicine Geriatric Medicine
DX: E11.65 Type 2 diabetes mellitus with hyperglycemia (principal); I10 Essential (primary) hypertension; E55.9 Vitamin D deficiency, unspecified
CPT/HCPCS: 36415; 80053; 80061; 82248; 82306; 84443; 85025

== ENCOUNTER → 2023-07-03 | Outpatient (CLI) | payer MEDICARE, SELFPAY ==
--- NOTE | 2023-07-03 09:46 | ECHOLC_ITS ---
Reason For Study: CM Procedure This was a limited 2D transthoracic echocardiogram. Contrast injection was performed. Exam performed in department. Left Ventricle Normal LV size. The left ventricular ejection fraction is 40 %. There are regional wall motion abnormalities as specified. Mid-anteroseptal : Akinetic. Mid-Inferior: Hypokinetic. Infero-Basal: Severely Hypokinetic. Inferior [place] : Hypokinetic. Right Ventricle Normal RV size. ICD or pacer leads identified within the right ventricle. Normal systolic function. Atria Normal left atrium. Normal right atrium. Mitral Valve Normal mitral valve. Tricuspid Valve Normal tricuspid valve. Mild (1+) tricuspid valve insufficiency. Pulmonary artery systolic pressure is 30 mmHg. Aortic Valve Trisinus/trileaflet aortic valve. Moderate focal aortic valve thickening. Pulmonic Valve The pulmonic valve is not well visualized. Great Vessels Normal aortic root. The pulmonary artery is normal size. Normal inferior vena cava. Pericardium/Pleural No pericardial effusion. Medication Diluted definity 1.5ml given slow IV push to enhance endocardial definition. MMode/2D Measurements & Calculations LVIDd: 4.9 cm IVSd: 1.0 cm LVIDs: 3.8 cm LVPWd: 0.85 cm LVAd ap4: 27.6 cm2 FS: 21.7 % LVLd ap4: 6.9 cm EDV(MOD-sp4): 87.3 ml EDV(sp4-el): 93.2 ml LVAs ap4: 20.5 cm2 LVLs ap4: 6.2 cm ESV(MOD-sp4): 54.3 ml ESV(sp4-el): 57.8 ml EF(MOD-sp4): 37.8 % EF(sp4-el): 38.0 % SV(MOD-sp4): 33.0 ml SV(sp4-el): 35.4 ml Doppler Measurements & Calculations TR max heike: 257.2 cm/sec TR max P.5 mmHg ECHO/Echo Limited w/Contrast Interpretation Summary The left ventricular ejection fraction is 40 %. Normal LV size. Pulmonary artery systolic pressure is 30 mmHg. Contrast injection was performed. Ordering Physician: Rayne Escobar Referring Physician: Donta Sweet Chi Performed By: Meme Barrera, KILO, RVT
== END | disposition home or self-care (01) ==
LOC: CVS 09:45
PROVIDERS: PCP Family Medicine Geriatric Medicine; Referring Provider Nurse Practitioner Gerontology; Visit Provider Nurse Practitioner Gerontology
DX: I51.9 Heart disease, unspecified (principal)
CPT/HCPCS: 93308; Q9957; A4216; C8924

== ENCOUNTER → 2023-07-27 | Outpatient (CLI) | payer MEDICARE, SELFPAY ==
[2023-07-27 15:37] LABS: Absolute Lymphocyte Count 1.62 X10^3/uL (0.83-4.51); Absolute Neutrophil Count 9.7 X10^3/uL (2.0-7.7); Basophil# 0.04 X10^3/uL; Basophil% 0.3 % (0-1); Eosinophils% 1.6 % (0-5); Hematocrit 36.4 % (37-47); Hemoglobin 12.4 g/dL (12.0-15.0); Lymphocyte # 1.62 X10^3/ul (0.83-4.51); Lymphocyte % 13.1 % (19-41); Mean Corp Hgb Conc 34.1 g/dL (32-36); Mean Corpuscular Hgb 29.7 pg (27.0-32.0); Mean Corpuscular Volume 87.1 fL (81-99); Mean Platelet Vol. 10.7 fl (6.2-12.0); Monocyte# 0.76 X10^3/uL; Monocyte% 6.1 % (0-10); NRBC Flagged by Analyzer 0 % (0-5); Neutrophil # 9.73 X10^3/uL (2.7-7.7); Neutrophil % 78.4 % (47-70); Platelet Count 260 K/mm3 (150-450); RBC Distribution Width CV 14.6 % (11.6-14.6); RBC Distribution Width SD 46.5 fl (35.1-43.9); Red Blood Count 4.18 M/mm3 (4.2-5.4); White Blood Count 12.4 K/mm3 (4.4-11.0)
[2023-07-27 15:38] LABS: Hemoglobin A1c 6.9 % (3.8-5.6)
[2023-07-27 15:44] LABS: ALB/GLOB Ratio 0.8 RATIO (0.9-2.4); AST(SGOT) 573 U/L (15-37); Alanine Aminotransfer ALT/SGPT 446 U/L (13-56); Albumin, Serum 3.4 g/dL (3.2-5.0); Alkaline Phosphatase 84 U/L (45-117); Anion Gap 14 (5-15); BUN 58 mg/dL (7-18); BUN/Creat Ratio 22.7 RATIO (10-20); Calcium,Total 9.2 mg/dL (8.5-10.1); Chloride 104 mmol/L (98-107); Creatinine, Serum 2.55 mg/dL (0.55-1.02); EST Glomerular Filtration Rate 20 mL/min (>60); Est Glom Filt Rate - Afr Amer 24 mL/min (>60); Glucose 112 mg/dL (74-106); Potassium 4.7 mmol/L (3.5-5.1); Protein, Total 7.4 g/dL (6.4-8.2); Sodium Level 135 mmol/L (136-145); Thyroid Stim Hormone (TSH) 1.47 uIU/mL (0.358-3.74)
== END | disposition home or self-care (01) ==
LOC: POLAB3 13:50
PROVIDERS: PCP Family Medicine Geriatric Medicine; Visit Provider Family Medicine Geriatric Medicine
DX: E11.65 Type 2 diabetes mellitus with hyperglycemia (principal); I10 Essential (primary) hypertension; E03.9 Hypothyroidism, unspecified; N39.0 Urinary tract infection, site not specified
CPT/HCPCS: 36415; 80053; 83036; 84443; 85025; 87086; 87088; 87186

== ENCOUNTER → 2023-07-30 | Outpatient (CLI) | payer MEDICARE, SELFPAY ==
[2023-07-30 12:34] LABS: Anion Gap 10 (5-15); BUN 51 mg/dL (7-18); BUN/Creat Ratio 22.7 RATIO (10-20); Calcium,Total 9.1 mg/dL (8.5-10.1); Chloride 107 mmol/L (98-107); Creatinine, Serum 2.25 mg/dL (0.55-1.02); EST Glomerular Filtration Rate 23 mL/min (>60); Est Glom Filt Rate - Afr Amer 28 mL/min (>60); Glucose 132 mg/dL (74-106); Potassium 4.4 mmol/L (3.5-5.1); Sodium Level 131 mmol/L (136-145)
[2023-07-30 13:05] LABS: Creatinine, Urine (random) < 13.00 mg/dL (NO RANGE EST.); Urine Sodium 26 mmol/L (Not Establ.)
== END | disposition home or self-care (01) ==
LOC: LAB 11:50
PROVIDERS: PCP Family Medicine Geriatric Medicine; Referring Provider Family Medicine Geriatric Medicine; Visit Provider Family Medicine Geriatric Medicine
DX: N18.31 Chronic kidney disease, stage 3a (principal)
CPT/HCPCS: 36415; 80048; 82570; 84300

== ENCOUNTER → 2023-07-31 | Outpatient (CLI) | payer MEDICARE, SELFPAY ==
[2023-07-31 11:52] LABS: ALB/GLOB Ratio 0.9 RATIO (0.9-2.4); AST(SGOT) 307 U/L (15-37); Alanine Aminotransfer ALT/SGPT 373 U/L (13-56); Albumin, Serum 3.3 g/dL (3.2-5.0); Alkaline Phosphatase 81 U/L (45-117); Anion Gap 10 (5-15); BUN 61 mg/dL (7-18); Calcium,Total 9.1 mg/dL (8.5-10.1); Chloride 107 mmol/L (98-107); Creatinine, Serum 2.35 mg/dL (0.55-1.02); EST Glomerular Filtration Rate 22 mL/min (>60); Est Glom Filt Rate - Afr Amer 26 mL/min (>60); Globulin 3.8 g/dL (2.2-4.2); Glucose 139 mg/dL (74-106); Potassium 4.6 mmol/L (3.5-5.1); Protein, Total 7.1 g/dL (6.4-8.2); Sodium Level 135 mmol/L (136-145)
== END | disposition home or self-care (01) ==
LOC: POLAB3 11:26
PROVIDERS: PCP Family Medicine Geriatric Medicine; Visit Provider Family Medicine Geriatric Medicine
DX: I10 Essential (primary) hypertension (principal)
CPT/HCPCS: 36415; 80053

== ENCOUNTER → 2023-07-31 | Outpatient (CLI) | payer MEDICARE, SELFPAY ==
--- NOTE | 2023-07-31 19:00 | US_ITS ---
STUDY: RENAL ULTRASOUND - COMPLETE REASON FOR EXAM: Female, 68 years old. CKD STAGE 3A TECHNIQUE: Ultrasound evaluation of the kidneys was performed with real-time and static rascon-scale imaging. COMPARISON: Comparison is made with prior study February 02, 2014. FINDINGS: RIGHT KIDNEY: Normal location of the right kidney, which is normal in size. The right kidney measures 9.9 cm x 5.1 cm x 5.7 cm. There is a normal cortex of the right kidney. The renal cortex measures 1.1 cm. There is no right renal mass or cyst. There are no right renal calculi. There is mild hydronephrosis of the right kidney. DISTAL RIGHT URETER: There is non-visualization of the distal right ureter. There is no demonstrated right ureterovesical junction calculus. There is a visualized right ureteral jet. LEFT KIDNEY: Normal location of the left kidney, which is normal in size. The left kidney measures 9.3 cm x 4 cm x 4.5 cm. There is a normal cortex of the left kidney. The renal cortex measures 1.1 cm. There is a 5.5 cm x 4.3 cm x 5 cm cyst in the lower pole of the left kidney. There are no left renal calculi. There is no left hydronephrosis. DISTAL LEFT URETER: There is non-visualization of the distal left ureter. There is no demonstrated left ureterovesical junction calculus. There is a visualized left ureteral jet. BLADDER: The distended urinary bladder has a volume of 209 ml. There is a normal wall thickness of the distended urinary bladder. There is no demonstrated mass within the urinary bladder. There are no demonstrated bladder calculi. US/Kidney and Bladder IMPRESSION: 5.5 cm x 4.3 cm x 5 cm cyst in the lower pole of the left kidney. Mild right hydronephrosis. Electronically Signed: Morris Kimble MD at 9:49 EDT ,
== END | disposition home or self-care (01) ==
LOC: US 18:52
PROVIDERS: PCP Family Medicine Geriatric Medicine; Visit Provider Family Medicine Geriatric Medicine
DX: N17.9 Acute kidney failure, unspecified (principal); N18.31 Chronic kidney disease, stage 3a
CPT/HCPCS: 76770

== ENCOUNTER → 2023-08-07 | Outpatient (CLI) | payer MEDICARE, SELFPAY ==
[2023-08-07 13:26] LABS: ALB/GLOB Ratio 0.9 RATIO (0.9-2.4); AST(SGOT) 43 U/L (15-37); Alanine Aminotransfer ALT/SGPT 94 U/L (13-56); Albumin, Serum 3.1 g/dL (3.2-5.0); Alkaline Phosphatase 67 U/L (45-117); Anion Gap 8 (5-15); BUN 24 mg/dL (7-18); BUN/Creat Ratio 17.3 RATIO (10-20); Chloride 108 mmol/L (98-107); Creatinine, Serum 1.39 mg/dL (0.55-1.02); EST Glomerular Filtration Rate 40 mL/min (>60); Est Glom Filt Rate - Afr Amer 48 mL/min (>60); Globulin 3.6 g/dL (2.2-4.2); Glucose 110 mg/dL (74-106); Protein, Total 6.7 g/dL (6.4-8.2); Sodium Level 139 mmol/L (136-145)
== END | disposition home or self-care (01) ==
LOC: POLAB3 10:30
PROVIDERS: PCP Family Medicine Geriatric Medicine; Visit Provider Family Medicine Geriatric Medicine
DX: R53.83 Other fatigue (principal); N17.9 Acute kidney failure, unspecified; R74.01 Elevation of levels of liver transaminase levels
CPT/HCPCS: 36415; 80053

== ENCOUNTER → 2023-08-28 | Outpatient (CLI) | payer MEDICARE, SELFPAY ==
--- NOTE | 2023-08-28 07:06 | CT_ITS ---
STUDY: CT ABDOMEN AND PELVIS WITHOUT CONTRAST REASON FOR EXAM: Female, 68 years old. ACUTE KIDNEY INJURY RADIATION DOSAGE (If Supplied By Facility): CTDIvol = ( 6.44 ) mGy, DLP = ( 318.53 ) mGycm TECHNIQUE: Transaxial images were obtained from the dome of the diaphragm to the symphysis pubis without oral contrast, and without intravenous contrast. Sagittal and coronal images were reconstructed. Individualized dose optimization techniques were used for this CT. COMPARISON: Comparison is made with prior ultrasound of the kidneys dated July 31, 2023. FINDINGS: The visualized lung bases are unremarkable. Coronary artery calcification. Normal liver. Normal gallbladder and extrahepatic biliary system. Normal spleen. Normal pancreas. Normal bilateral adrenal glands. Mild degree of right hydronephrosis and proximal right hydroureter. Mild degree of right perinephric stranding. There is a 1 cm cyst in the upper lateral aspect of the left kidney. There is also evidence of a 4.6 cm x 5.4 sinus cyst in the lower pole of the left kidney. Normal visualized stomach. Normal small intestine. Moderate amount of fecal material is seen in the colon. There is non-visualization of the appendix. There is diffuse atherosclerotic calcification of the abdominal aorta and its major visceral branches, without a demonstrated aneurysm. Normal inferior vena cava. Normal retroperitoneum. Normal urinary bladder. There is absence of the uterus consistent with a prior hysterectomy. Normal abdominal wall. Grade 2 anterolisthesis of L4 on L5. Marked degree of disc space narrowing at the L4-L5 level as well as at the L1-L2 level. CT/Abdomen/Pelvis without Cont IMPRESSION: Mild degree of right hydronephrosis and right perinephric stranding. Mild fullness of the proximal right ureter. No obstructive uropathy is seen. Electronically Signed: Morris Kimble MD at 14:01 EDT ,
== END | disposition home or self-care (01) ==
LOC: CT 07:06
PROVIDERS: PCP Family Medicine Geriatric Medicine; Referring Provider Family Medicine Geriatric Medicine; Visit Provider Family Medicine Geriatric Medicine
DX: N17.9 Acute kidney failure, unspecified (principal)
CPT/HCPCS: 74176

== ENCOUNTER → 2023-09-02 | Outpatient (CLI) | payer MEDICARE, SELFPAY ==
[2023-09-02 12:26] LABS: Absolute Lymphocyte Count 1.53 X10^3/uL (0.83-4.51); Absolute Neutrophil Count 6.1 X10^3/uL (2.0-7.7); Basophil# 0.06 X10^3/uL; Basophil% 0.7 % (0-1); Eosinophil# 0.39 X10^3/uL; Eosinophils% 4.5 % (0-5); Hematocrit 39.6 % (37-47); Hemoglobin 12.7 g/dL (12.0-15.0); Lymphocyte # 1.53 X10^3/ul (0.83-4.51); Lymphocyte % 17.6 % (19-41); Mean Corp Hgb Conc 32.1 g/dL (32-36); Mean Corpuscular Hgb 29.9 pg (27.0-32.0); Mean Corpuscular Volume 93.2 fL (81-99); Mean Platelet Vol. 11.1 fl (6.2-12.0); Monocyte# 0.56 X10^3/uL; Monocyte% 6.5 % (0-10); NRBC Flagged by Analyzer 0 % (0-5); Neutrophil # 6.09 X10^3/uL (2.7-7.7); Neutrophil % 70.2 % (47-70); Platelet Count 278 K/mm3 (150-450); RBC Distribution Width SD 51.1 fl (35.1-43.9); Red Blood Count 4.25 M/mm3 (4.2-5.4); White Blood Count 8.7 K/mm3 (4.4-11.0)
[2023-09-02 12:38] LABS: Vitamin D,25 Hydroxy 38.2 ng/mL
[2023-09-02 12:50] LABS: AST(SGOT) 22 U/L (15-37); Alanine Aminotransfer ALT/SGPT 23 U/L (13-56); Alkaline Phosphatase 106 U/L (45-117); Anion Gap 8 (5-15); BUN 42 mg/dL (7-18); BUN/Creat Ratio 35.9 RATIO (10-20); Chloride 110 mmol/L (98-107); Cholesterol 209 mg/dL (200); Creatinine, Serum 1.17 mg/dL (0.55-1.02); EST Glomerular Filtration Rate 49 mL/min (>60); Est Glom Filt Rate - Afr Amer 59 mL/min (>60); Glucose 125 mg/dL (74-106); High Density Lipoprotein 49 mg/dL; Potassium 4.9 mmol/L (3.5-5.1); Sodium Level 137 mmol/L (136-145); Thyroid Stim Hormone (TSH) 1.21 uIU/mL (0.358-3.74); Triglycerides 166 mg/dL; Very Low Density Lipoprotein 33 mg/dL (5-40)
[2023-09-02 15:09] LABS: Hemoglobin A1c 6.1 % (3.8-5.6)
== END | disposition home or self-care (01) ==
LOC: LAB 11:12
PROVIDERS: PCP Family Medicine Geriatric Medicine; Referring Provider Family Medicine Geriatric Medicine; Visit Provider Family Medicine Geriatric Medicine
DX: E78.5 Hyperlipidemia, unspecified (principal); E11.65 Type 2 diabetes mellitus with hyperglycemia; I10 Essential (primary) hypertension; E55.9 Vitamin D deficiency, unspecified
CPT/HCPCS: 36415; 80053; 80061; 82306; 83036; 84443; 85025

== ENCOUNTER → 2023-12-04 | Outpatient (CLI) | payer MEDICARE, SELFPAY ==
[2023-12-04 11:19] LABS: Absolute Lymphocyte Count 1.55 X10^3/uL (0.83-4.51); Absolute Neutrophil Count 7.2 X10^3/uL (2.0-7.7); Basophil# 0.04 X10^3/uL; Basophil% 0.4 % (0-1); Eosinophil# 0.49 X10^3/uL; Eosinophils% 4.8 % (0-5); Hematocrit 38.2 % (37-47); Hemoglobin 12.1 g/dL (12.0-15.0); Lymphocyte # 1.55 X10^3/ul (0.83-4.51); Lymphocyte % 15.2 % (19-41); Mean Corp Hgb Conc 31.7 g/dL (32-36); Mean Corpuscular Hgb 28.5 pg (27.0-32.0); Mean Corpuscular Volume 90.1 fL (81-99); Monocyte# 0.83 X10^3/uL; Monocyte% 8.1 % (0-10); NRBC Flagged by Analyzer 0 % (0-5); Neutrophil # 7.24 X10^3/uL (2.7-7.7); Neutrophil % 71.1 % (47-70); Platelet Count 226 K/mm3 (150-450); RBC Distribution Width CV 14.2 % (11.6-14.6); RBC Distribution Width SD 46.6 fl (35.1-43.9); Red Blood Count 4.24 M/mm3 (4.2-5.4); White Blood Count 10.2 K/mm3 (4.4-11.0)
[2023-12-04 11:59] LABS: Vitamin D,25 Hydroxy 47.1 ng/mL
[2023-12-04 12:01] LABS: Hemoglobin A1c 6.8 % (3.8-5.6)
[2023-12-04 12:09] LABS: ALB/GLOB Ratio 0.9 RATIO (0.9-2.4); AST(SGOT) 45 U/L (15-37); Alanine Aminotransfer ALT/SGPT 43 U/L (13-56); Albumin, Serum 3.7 g/dL (3.2-5.0); Alkaline Phosphatase 103 U/L (45-117); Anion Gap 9 (5-15); BUN 37 mg/dL (7-18); BUN/Creat Ratio 28.2 RATIO (10-20); Calcium,Total 9.3 mg/dL (8.5-10.1); Chloride 108 mmol/L (98-107); Cholesterol 89 mg/dL (200); Creatinine, Serum 1.31 mg/dL (0.55-1.02); EST Glomerular Filtration Rate 43 mL/min (>60); Est Glom Filt Rate - Afr Amer 52 mL/min (>60); Globulin 4.3 g/dL (2.2-4.2); Glucose 126 mg/dL (74-106); High Density Lipoprotein 38 mg/dL; Potassium 4.5 mmol/L (3.5-5.1); Sodium Level 136 mmol/L (136-145); Thyroid Stim Hormone (TSH) 1.85 uIU/mL (0.358-3.74); Triglycerides 115 mg/dL; Very Low Density Lipoprotein 23 mg/dL (5-40)
[2023-12-04 12:14] LABS: Microalbumin,Random Urine 53.2 mg/L (NO RANGE EST.)
== END | disposition home or self-care (01) ==
LOC: LAB 10:09
PROVIDERS: PCP Family Medicine Geriatric Medicine; Referring Provider Family Medicine Geriatric Medicine; Visit Provider Family Medicine Geriatric Medicine
DX: E78.5 Hyperlipidemia, unspecified (principal); E11.65 Type 2 diabetes mellitus with hyperglycemia; I10 Essential (primary) hypertension; E55.9 Vitamin D deficiency, unspecified
CPT/HCPCS: 36415; 80053; 80061; 82043; 82306; 83036; 84443; 85025

== ENCOUNTER → 2024-06-03 | Outpatient (CLI) | payer MEDICARE, SELFPAY ==
[2024-06-03 09:28] LABS: Absolute Lymphocyte Count 0.82 X10^3/uL (0.83-4.51); Absolute Neutrophil Count 5.5 X10^3/uL (2.0-7.7); Basophil# 0.03 X10^3/uL; Basophil% 0.4 % (0-1); Eosinophil# 0.15 X10^3/uL; Eosinophils% 2.1 % (0-5); Hematocrit 42.6 % (37-47); Hemoglobin 13.3 g/dL (12.0-15.0); Lymphocyte # 0.82 X10^3/ul (0.83-4.51); Lymphocyte % 11.4 % (19-41); Mean Corp Hgb Conc 31.2 g/dL (32-36); Mean Corpuscular Hgb 28.4 pg (27.0-32.0); Mean Platelet Vol. 11.1 fl (6.2-12.0); Monocyte# 0.68 X10^3/uL; Monocyte% 9.4 % (0-10); NRBC Flagged by Analyzer 0 % (0-5); Neutrophil % 76.4 % (47-70); Platelet Count 171 K/mm3 (150-450); RBC Distribution Width CV 14.9 % (11.6-14.6); RBC Distribution Width SD 49.3 fl (35.1-43.9); Red Blood Count 4.68 M/mm3 (4.2-5.4); White Blood Count 7.2 K/mm3 (4.4-11.0)
[2024-06-03 10:07] LABS: Vitamin D,25 Hydroxy 36.3 ng/mL
[2024-06-03 10:15] LABS: ALB/GLOB Ratio 0.8 RATIO (0.9-2.4); AST(SGOT) 46 U/L (15-37); Alanine Aminotransfer ALT/SGPT 40 U/L (13-56); Albumin, Serum 3.8 g/dL (3.2-5.0); Alkaline Phosphatase 109 U/L (45-117); Anion Gap 11 (5-15); BUN 21 mg/dL (7-18); BUN/Creat Ratio 15.8 RATIO (10-20); Calcium,Total 9.6 mg/dL (8.5-10.1); Chloride 101 mmol/L (98-107); Cholesterol 88 mg/dL (200); Creatinine, Serum 1.33 mg/dL (0.55-1.02); EST Glomerular Filtration Rate 42 mL/min (>60); Est Glom Filt Rate - Afr Amer 51 mL/min (>60); Globulin 4.5 g/dL (2.2-4.2); Glucose 182 mg/dL (74-106); High Density Lipoprotein 44 mg/dL; Potassium 4.3 mmol/L (3.5-5.1); Protein, Total 8.3 g/dL (6.4-8.2); Sodium Level 134 mmol/L (136-145); Thyroid Stim Hormone (TSH) 0.585 uIU/mL (0.358-3.740); Triglycerides 104 mg/dL; Very Low Density Lipoprotein 21 mg/dL (5-40)
[2024-06-05 15:06] LABS: Hemoglobin A1c 7.7 % (3.8-5.6)
== END | disposition home or self-care (01) ==
LOC: POLAB3 09:17
PROVIDERS: PCP Family Medicine Geriatric Medicine; Visit Provider Family Medicine Geriatric Medicine
DX: E78.5 Hyperlipidemia, unspecified (principal); E11.65 Type 2 diabetes mellitus with hyperglycemia; I10 Essential (primary) hypertension; E55.9 Vitamin D deficiency, unspecified; R68.83 Chills (without fever)
CPT/HCPCS: 36415; 80053; 80061; 82306; 83036; 84443; 85025; 87631

== ENCOUNTER → 2024-12-05 | Outpatient (CLI) | payer MEDICARE, SELFPAY ==
[2024-12-05 10:44] LABS: Hematocrit 35.1 % (37-47); Hemoglobin 11.1 g/dL (12.0-15.0); Immature Granulocytes Count 0.020 X10^3/uL (0.0-0.0); Mean Corp Hgb Conc 31.6 g/dL (32-36); Mean Corpuscular Volume 88.2 fL (81-99); Mean Platelet Vol. 11.2 fl (6.2-12.0); NRBC Flagged by Analyzer 0 % (0-5); Platelet Count 231 K/mm3 (150-450); RBC Distribution Width CV 16.2 % (11.6-14.6); RBC Distribution Width SD 52.6 fl (35.1-43.9); Red Blood Count 3.98 M/mm3 (4.2-5.4); White Blood Count 9.9 K/mm3 (4.4-11.0)
[2024-12-05 11:21] LABS: Creatinine, Urine (random) 48.90 mg/dL (28.00-217.00)
[2024-12-05 11:32] LABS: AST(SGOT) 39 U/L (<=31); Alanine Aminotransfer ALT/SGPT 30 U/L (<=34); Albumin, Serum 4.3 g/dL (3.4-4.8); Alkaline Phosphatase 98 U/L (35-104); Anion Gap 14 (5-15); BUN 37 mg/dL (4-19); BUN/Creat Ratio 28.6 RATIO (10-20); Calcium,Total 9.9 mg/dL (7.6-11.0); Carbon Dioxide 16.3 mmol/L (21.0-32.0); Chloride 103 mmol/L (98-108); Cholesterol 89 mg/dL (<=200); Globulin 3.6 g/dL (2.2-4.2); Glucose 135 mg/dL (70-99); Low Density Lipoprotein Calc. 27 mg/dL; Potassium 4.8 mmol/L (3.3-5.1); Triglycerides 95 mg/dL; Very Low Density Lipoprotein 19 mg/dL (5-40); Vitamin D,25 Hydroxy 39.4 ng/mL (30-100); cholesterol:hdl ratio screen 2.08
[2024-12-05 11:33] LABS: Microalbumin,Random Urine 54.2 mg/L (<20 mg/L)
== END | disposition home or self-care (01) ==
LOC: LAB 10:05
PROVIDERS: PCP Family Medicine Geriatric Medicine; Referring Provider Family Medicine Geriatric Medicine; Visit Provider Family Medicine Geriatric Medicine
DX: E78.5 Hyperlipidemia, unspecified (principal); E11.65 Type 2 diabetes mellitus with hyperglycemia; E55.9 Vitamin D deficiency, unspecified
CPT/HCPCS: 36415; 80053; 80061; 82043; 82306; 82570; 83036; 84443; 85025

== ENCOUNTER → 2024-12-12 | Outpatient (CLI) | payer MEDICARE, SELFPAY ==
[2024-12-12 10:28] LABS: Hematocrit 36.1 % (37-47); Hemoglobin 11.4 g/dL (12.0-15.0); Immature Granulocytes Count 0.040 X10^3/uL (0.0-0.0); Mean Corp Hgb Conc 31.6 g/dL (32-36); Mean Corpuscular Volume 87.8 fL (81-99); Mean Platelet Vol. 10.7 fl (6.2-12.0); NRBC Flagged by Analyzer 0 % (0-5); Platelet Count 244 K/mm3 (150-450); RBC Distribution Width CV 16.4 % (11.6-14.6); RBC Distribution Width SD 52.7 fl (35.1-43.9); Red Blood Count 4.11 M/mm3 (4.2-5.4); White Blood Count 8.1 K/mm3 (4.4-11.0)
== END | disposition home or self-care (01) ==
LOC: POLAB3 10:09
PROVIDERS: PCP Family Medicine Geriatric Medicine; Visit Provider Family Medicine Geriatric Medicine
DX: E11.65 Type 2 diabetes mellitus with hyperglycemia (principal); I10 Essential (primary) hypertension
CPT/HCPCS: 36415; 85025

== ENCOUNTER → 2025-03-08 | Outpatient (CLI) | payer MEDICARE, SELFPAY ==
[2025-03-08 09:17] LABS: Hematocrit 38.3 % (37-47); Hemoglobin 12.1 g/dL (12.0-15.0); Immature Granulocytes Count 0.030 X10^3/uL (0.0-0.0); Mean Corp Hgb Conc 31.6 g/dL (32-36); Mean Corpuscular Volume 84.7 fL (81-99); Mean Platelet Vol. 11.0 fl (6.2-12.0); NRBC Flagged by Analyzer 0 % (0-5); Platelet Count 228 K/mm3 (150-450); RBC Distribution Width CV 15.9 % (11.6-14.6); RBC Distribution Width SD 48.6 fl (35.1-43.9); Red Blood Count 4.52 M/mm3 (4.2-5.4); White Blood Count 6.9 K/mm3 (4.4-11.0)
[2025-03-08 10:16] LABS: AST(SGOT) 38 U/L (<=31); Alanine Aminotransfer ALT/SGPT 26 U/L (<=34); Albumin, Serum 4.6 g/dL (3.4-4.8); Alkaline Phosphatase 90 U/L (35-104); Anion Gap 12 (5-15); BUN 36 mg/dL (4-19); BUN/Creat Ratio 28.3 RATIO (10-20); Calcium,Total 9.9 mg/dL (7.6-11.0); Carbon Dioxide 18.1 mmol/L (21.0-32.0); Chloride 107 mmol/L (98-108); Cholesterol 123 mg/dL (<=200); Globulin 3.7 g/dL (2.2-4.2); Glucose 170 mg/dL (70-99); Low Density Lipoprotein Calc. 57 mg/dL; Potassium 4.9 mmol/L (3.3-5.1); Triglycerides 131 mg/dL; Very Low Density Lipoprotein 26 mg/dL (5-40); cholesterol:hdl ratio screen 2.89
== END | disposition home or self-care (01) ==
LOC: LAB 08:47
PROVIDERS: PCP Family Medicine Geriatric Medicine; Referring Provider Family Medicine Geriatric Medicine; Visit Provider Family Medicine Geriatric Medicine
DX: E78.5 Hyperlipidemia, unspecified (principal); E11.65 Type 2 diabetes mellitus with hyperglycemia; I10 Essential (primary) hypertension; E03.9 Hypothyroidism, unspecified
CPT/HCPCS: 36415; 80053; 80061; 83036; 84443; 85025

== ENCOUNTER → 2025-03-09 | Outpatient (CLI) | payer MEDICARE, SELFPAY ==
--- OUTSIDE RECORDS SUMMARY | 2025-03-09 14:22 | XMS RPT_ITS | CCD ---
Author Organization [facility] Care Team Providers Care Optimization Engineer Name Role Phone Dr. Donta Sweet Chi Primary Care Provider ABBY Gandara Attending Provider Unavail able Dr. Donta Sweet Chi Referring Provider Dr. Thomas Hollis Attending Provider [phone] MD Donta Koo Chi Primary Care Provider Unava ilyecenia Escobar BUILDING AND CONSTRUCTION MANAGER, BUILDING AND CONSTRUCTION MANAGER-C Rayne Attending Provider Dr. Donta Sweet Chi Primary Care Provider [phone] Thomas Hollis Attending Provider MD Donta Koo Chi Referring Provider Dr. Donta Ryan Chi Primary Care Provider Dr. Thomas Hollis Attending Provider [phone] MD Donta Koo Chi Referring Provider Nba Escobar BUILDING AND CONSTRUCTION MANAGER, BUILDING AND CONSTRUCTION MANAGER-C Rayne Attending Provider Dr. Donta Sweet Chi Primary Care Provider [phone] Thomas Hollis Attending Provider [phone] Shawn BUILDING AND CONSTRUCTION MANAGER, BUILDING AND CONSTRUCTION MANAGER-C Rayne Attending Provider Dr. Donta Sweet Chi Referring Provider Dr. Donta Sweet MD, Chi Primary Care Provider [phone] Dr. Thomas Hollis MD Attending Provider [phone] Dr. Donta Sweet MD, Chi Referring Provider Britta Sandra Attending Provider [phone] Dr. Donta Sweet MD, Chi Primary Care Provider Dr. Alonso Hollis MDl Attending Provider Shira WEEKS, Dr. Donta Lin Attending Provider Britta Sandra Other Provider Shira WEEKS, Dr. Donta Lin Primary Care Physician Telma WEEKS, Dr. Guzman Attending Physician Shira WEEKS, Dr. Donta Lin Attending Physician Shira WEEKS, Dr. Donta Lin Referring Provider Britta Sandra Nurse Practitioner Shira, Donta Chi Attending Unavailable Shira, Donta Chi Primary Care Unavailable Shira, Donta Chi Referring Unavailable Shira, Donta Chi Primary Care Unavailable Rayne Escobar NP Attending Unavailable Shira, Donta Chi Primary Care Unavailable Telma, Thomas Attending Unavailable Shira, Donta Chi Primary Care Unavailable Shira, Donta Chi Attending Unavailable Shira, Donta Chi Primary Care Unavailable Shira, Donta Chi Attending Unavailable Shiar, Donta Chi Attending Unavailable Shira, Donta Chi Referring Unavailable Britta Sandra Consulting Unavail able Shira, Donta Chi Primary Care Unavailable Telma, Thomas Attending Unavailable Shira, Donta Chi Primary Care Unavailable Telma, [place] Attending Unavailable Shira, Donta Chi Primary Care Unavailable Shira, Donta Chi Referring Unavailable Britta Sandra Attending Unavail able Shira, Donta Chi Primary Care Unavailable Shira, Donta Chi Primary Care Unavailable Telma, [place] Attending Unavailable Allergies Allergy Classification Reported Allergen(s) Allergy Type Date of Onset Reaction(s) Facility (13 sources) carvedilol Drug Allergy 02-20-2023 Diarrhea [facility] (14 sources) ESTrogens, conj synthetic; Translations: [ESTrogens, conj synthetic] Allergy to substance 01-21-2023 unknown [facility] (1 source) carvedilol Drug Allergy 09-01-2024 [facility] Repository Medications Current Medications Medication Drug Class(es) Dates Sig (Normalized) Sig (Original) aspirin 81 mg delayed release oral tablet (13 sources) Platelet Aggregation Inhibitor, Nonsteroidal Anti-inflammatory Drug Start: 12-23-2022 atorvastatin 80 mg oral tablet (17 sources) HMG-CoA Reductase Inhibitor Start: 03-21-2024 take 1 tablet by mouth once daily Start: 12-23-2022 End: 08-10-2023 take 1 tablet by mouth once daily Atorvastatin 80 mg tablet Discontinued 80 mg PO DAILY December 23, 2022 12:00am August 10, 2023 8:56am cholecalciferol 0.05 mg oral capsule (6 sources) Vitamin D Start: 08-10-2023 take 1 capsule by mouth once daily empagliflozin 25 mg oral tablet (13 sources) Sodium-Glucose Cotransporter 2 Inhibitor Start: 01-21-2023 take 1 tablet by mouth once daily in the morning levothyroxine sodium 0.025 mg oral tablet (13 sources) l-Thyroxine Start: 01-21-2023 take 1 tablet by mouth once daily metFORMIN hydrochloride 1000 mg oral tablet (6 sources) Biguanide Start: 08-10-2023 take 1 tablet by mouth twice daily metoprolol tartrate 25 mg oral tablet (20 sources) beta-Adrenergic Alireza Start: 02-20-2023 End: 03-21-2024 take 1 tablet by mouth twice daily Start: 12-23-2022 End: 01-21-2023 take 4 tablets by mouth twice daily Metoprolol Tartrate 25 mg tablet Discontinued 100 mg PO TWICE A DAY December 23, 2022 2:08pm January 21, 2023 5:00pm Start: 12-23-2022 End: 01-21-2023 take 100 mg by mouth twice daily Metoprolol Tartrate Discontinued 100 MG PO TWICE A DAY December 23, 2022 2:08pm January 21, 2023 5:00pm Start: 12-23-2022 End: 12-23-2022 take 1 tablet by mouth twice daily Metoprolol Tartrate 25 mg tablet Discontinued 25 mg PO TWICE A DAY December 23, 2022 12:00am December 23, 2022 2:10pm sacubitril 49 mg / valsartan 51 mg oral tablet (20 sources) Angiotensin 2 Receptor Alireza Start: 10-20-2024 Start: 09-05-2024 End: 10-20-2024 take 1 tablet by mouth twice daily Sacubitril-Valsartan (Entresto) 49-51 mg tablet Discontinued 1 {tbl} PO .COMPLEX 60 0 September 05, 2024 1:57pm Nina 26th, 2025 9:58am 1 TAB orally TWICE DAILY: this is a dose increase and patient is waiting on mail order RX; Start: 09-01-2024 End: 09-05-2024 Sacubitril-Valsartan (Entres to) 49-51 mg tablet Discontinued 1 {tbl} PO TWICE A DAY 180 3 September 01, 2024 12:00am September 05, 2024 1:58pm Start: 04-03-2023 End: 09-01-2024 Sacubitril-Valsartan (Entres to) 24-26 mg tablet Discontinued 1 {tbl} PO TWICE A DAY 180 March 23, 2024 12:57pm September 01, 2024 9:37am spironolactone 25 mg oral ta blet (13 sources) Aldosterone Antagonist Start: 12-23-2022 Start: 12-23-2022 take 12.5 mg by mout h once daily Spironolactone Active 12.5 MG PO DAILY December 23, 2022 12:00am ticagrelor 90 mg oral tablet (13 sources) Start: 12-23-2022 take 1 tablet by mouth twice d aily Completed/Discontinued Medications Medication Drug Class(es) Dates Sig (Normalized) Sig (Original) canagliflozin 100 mg oral tablet (13 sources) Sodium-Glucose Cotransporter 2 Inhibitor Start: 12-23-2022 End: 01-21-2023 take 1 tablet by mouth once daily Canagliflozin (Invokana) 100 mg tablet Discontinued 100 mg PO DAILY December 23, 2022 12:00am January 21, 2023 3:02pm carvedilol 25 mg oral tablet (13 sources) alpha-Adrenergic Alireza, beta-Adrenergic Alireza Start: 01-21-2023 End: 02-20-2023 take 1 tablet by mouth twice daily at mealtime Carvedilol (Coreg) 25 mg tablet Discontinued 25 mg PO TWICE A DAY 60 January 21, 2023 12:00am February 20, 2023 3:52pm must administer with a meal/food insulin glargine 100 unt/ml injectable solution (1 source) Insulin Analog Start: 12-23-2022 End: 01-21-2023 Insulin Glargine (Lantus U-100 Insulin) 100 unit/mL solution Discontinued 20 U SC DAILY December 23, 2022 12:00am January 21, 2023 3:02pm Insulin Glargine (Lantus U-100 Insulin) 100 unit/mL solution (12 sources) Start: 12-23-2022 End: 01-21-2023 Insulin Glargine (Lantus U-100 Insulin) 100 unit/mL solution Discontinued 20 U SC DAILY December 23, 2022 12:00am January 21, 2023 3:02pm Start: 12-23-2022 End: 01-21-2023 Insulin Glargine (Lantus U-1 00 Insulin) 100 unit/mL solution Discontinued 20 UNIT SC DAILY December 23, 2022 12:00am January 21, 2023 3:02pm Start: 12-23-2022 End: 01-21-2023 Insulin Glargine (Lantus U-1 00 Insulin) 100 unit/mL solution Discontinued 20 UNIT SC DAILY December 22, 2022 11:00pm January 21, 2023 2:02pm insulin lispro 100 unt/ml injectable solution (13 sources) Insulin Analog Start: 12-23-2022 End: 01-21-2023 Insulin Lispro (Humalog U-100 Insulin) 100 unit/mL solution Discontinued 9 U SC .QID December 23, 2022 12:00am January 21, 2023 3:03pm 24 hr metFORMIN hydrochloride 1000 mg / sAXagliptin 2.5 mg extended release oral tablet (1 source) Biguanide, Dipeptidyl Peptidase 4 Inhibitor Start: 12-23-2022 End: 08-10-2023 take 2.5-1000 mg by mouth every twenty-four hours in the evening Saxagliptin-Metfo rmin (Kombiglyze Xr) 2.5-1,000 mg tablet, ER multiphase 24 hr Discontinued 1 {tbl} PO EVERY EVENING December 23, 2022 12:00am August 10, 2023 8:56am olmesartan medoxomil 5 mg oral tablet (13 sources) Angiotensin 2 Receptor Alireza Start: 12-23-2022 End: 04-03-2023 take 1 tablet by mouth once daily Olmesartan 5 mg tablet Discontinued 5 mg PO DAILY December 23, 2022 12:00am April 03, 2023 4:12pm pantoprazole 40 mg delayed release oral tablet (13 sources) Proton Pump Inhibitor Start: 12-23-2022 End: 01-21-2023 take 1 tablet by mouth once daily Pantoprazole 40 mg tablet,delayed release (DR/EC) Discontinued 40 mg PO DAILY December 23, 2022 12:00am January 21, 2023 3:03pm microencapsulated potassium chloride 20 meq extended release oral tablet (13 sources) Start: 12-23-2022 End: 01-21-2023 Potassium Chloride (Klor-Con M20) 20 mEq tablet,ER particles/crystal s Discontinued 20 meq PO TWICE A DAY December 23, 2022 12:00am January 21, 2023 3:03pm Saxagliptin-Metformin (Kombiglyze Xr) 2.5-1,000 mg tablet, ER multiphase 24 hr (12 sources) Start: 12-23-2022 End: 08-10-2023 take 2.5-1000 mg by mouth every twenty-four hours in the evening Saxagliptin-Metfo rmin (Kombiglyze Xr) 2.5-1,000 mg tablet, ER multiphase 24 hr Discontinued 1 {tbl} PO EVERY EVENING December 23, 2022 12:00am August 10, 2023 8:56am Start: 12-23-2022 End: 08-10-2023 take 2.5-1000 mg by mouth every twenty-four hours in the evening Saxagliptin-Metformin (Kombiglyze Xr) 2.5-1,000 mg tablet, ER multiphase 24 hr Discontinued 1 TABLET PO EVERY EVENING December 23, 2022 12:00am August 10, 2023 8:56am Start: 12-23-2022 take 2.5-1000 mg by mouth every twenty-four hours in the evening Saxagliptin-Metformin (Kombiglyze Xr) 2.5-1,000 mg tablet, ER multiphase 24 hr Active 1 TABLET PO EVERY EVENING December 23, 2022 12:00am Start: 12-23-2022 take 2.5-1000 mg by mouth every twenty-four hours in the evening Saxagliptin-Metformin (Kombiglyze Xr) 2.5-1,000 mg tablet, ER multiphase 24 hr Active 1 TABLET PO EVERY EVENING December 22, 2022 11:00pm Semaglutide (20 sources) Start: 01-21-2023 End: 08-10-2023 Semaglutide (Ozempic) 0.25 m g or 0.5 mg (2 mg/3 mL) pen injector Discontinued 0.5 mg SC EVERY WEEK January 21, 2023 3:04pm August 10, 2023 8:56am Start: 01-21-2023 End: 08-10-2023 Semaglutide (Ozempic) 0.25 m g or 0.5 mg (2 mg/3 mL) pen injector Discontinued 0.5 MG SC EVERY WEEK January 21, 2023 3:04pm August 10, 2023 8:56am Start: 01-21-2023 Semaglutide (O zempic) 0.25 mg or 0.5 mg (2 mg/3 mL) pen injector Active 0.5 MG SC EVERY WEEK January 21, 2023 3:04pm Start: 01-21-2023 Semaglutide (O zempic) 0.25 mg or 0.5 mg (2 mg/3 mL) pen injector Active 0.5 MG SC EVERY WEEK January 21, 2023 2:04pm Start: 01-21-2023 End: 01-21-2023 Semaglutide (Ozempic) 0.25 m g or 0.5 mg (2 mg/3 mL) pen injector Discontinued 0.25 mg SC EVERY WEEK January 21, 2023 12:00am January 21, 2023 3:04pm Start: 01-21-2023 End: 01-21-2023 Semaglutide (Ozempic) 0.25 m g or 0.5 mg (2 mg/3 mL) pen injector Discontinued 0.25 MG SC EVERY WEEK January 21, 2023 12:00am January 21, 2023 3:04pm Start: 01-21-2023 End: 01-21-2023 Semaglutide (Ozempic) 0.25 m g or 0.5 mg (2 mg/3 mL) pen injector Discontinued 0.25 MG SC EVERY WEEK January 20, 2023 11:00pm January 21, 2023 2:04pm traMADol hydrochloride 50 mg oral tablet (13 sources) Opioid Agonist Start: 12-23-2022 End: 01-21-2023 take 1 tablet by mouth every six hours Tramadol 50 mg tablet Discontinued 50 mg PO EVERY 6 HOURS December 23, 2022 12:00am January 21, 2023 3:03pm Problems Active Problems Problem Classification Problem Date Documented Da te Episodic/Chronic Cardiac arrest and ventricular fibrillation (15 sources) Cardiac arrest; Translations: [Cardiac arrest, cause unspecified] 04-03-2023 Chronic Cardiac dysrhythmias (20 sources) Ventricular tachycardia; Translations: [Ventricular tachycardia] 01-21-2023 Chronic Chronic kidney disease (13 sources) Chronic kidney disease stage 3B ; Translations: [Stage 3b chronic kidney disease] 12-23-2022 Chronic Conduction disorders (20 sources) Cardiac defibrillator in situ; Translations: [Presence of automatic (implantable) cardiac defibrillator] Onset: 11-27-2022 12-23-2022 Chronic Coronary atherosclerosis and other heart disease (20 sources) Coronary atherosclerosis; Translations: [Atherosclerotic heart disease of [place] coronary artery without angina pectoris] 12-23-2022 Chronic Diabetes mellitus with complications (2 sources) Type 2 diabetes mellitus with hyperglycemia; Translations: [Type 2 diabetes mellitus with hyperglycemia] Onset: 12-13-2024 Chronic Diabetes mellitus without complication (13 sources) Type 2 diabetes mellitus; Translations: [Type 2 diabetes mellitus without complications] 12-23-2022 Chronic Disorders of lipid metabolism (20 sources) Hyperlipidemia; Translations: [Hyperlipidemia, unspecified] Onset: 12-09-2024 12-23-2022 Chronic Essential hypertension (20 sources) Benign hypertension; Translations: [Essential (primary) hypertension] Onset: 09-01-2024 01-21-2023 Chronic Other and ill-defined heart disease (16 sources) Left ventricular cardiac dysfunction; Translations: [Heart disease, unspecified] 01-21-2023 Chronic Other and ill-defined heart disease (6 sources) Heart disease, unspecified; Translations: [Heart disease, unspecified] 01-21-2023 Chronic Residual codes; unclassified (13 sources) Edema; Translations: [Edema, unspecified] 12-23-2022 Episodic Thyroid disorders (1 source) Hypothyroidism, unspecified; Translations: [Hypothyroidism, unspecified] Onset: 12-13-2024 Chronic Past or Other Problems Problem Classification Problem Date Documented Da te Episodic/Chronic Coronary atherosclerosis and other heart disease (6 sources) Presence of coronary angioplasty implant and graft; Translations: [Percutaneous transluminal coronary angioplasty status] Onset: 11-25-2022 01-21-2023 Episodic Results Test Name Value Interpretation Reference Range Facility Absolute lymphocyte countOrd ered By: Donta Sweet on 12-12-2024 Lymphocytes Auto (Unsp spec) [#/Vol] 1.51 10*3/uL 0.83-4.51 [facility] Absolute neutrophil countOrd ered By: Donta Sweet on 12-12-2024 Neutrophils (Bld) [#/Vol] 5.4 10*3/uL 2.0-7.7 [facility] Automated lymphocyte count a s percentage of total leukocytesOrdered By: Donta Sweet on 12-12-2024 Lymphocytes/100 WBC Auto (Unsp spec) 18.6 % Low 19-41 [facility] Basophil percentageOrdered B y: Donta Sweet on 12-12-2024 Basophils/100 WBC (Bld) 0.6 % 0-1 [facility] CBC W/Diff, Automatedon 11-25 Absolute Lymph 1.51 X10 3/uL Normal 0.83-4.51 [facility] Comment on above: Performed By: #### L 500.4100, L501.9985, L500.4050, L502.0250, L506.1001, L100.0100, L501.9520 #### [facility] [address] [place], [address] Absolute Neut 5.4 X10 3/uL Normal 2.0-7.7 [facility] Comment on above: Performed By: #### L 500.4100, L501.9985, L500.4050, L502.0250, L506.1001, L100.0100, L501.9520 #### [facility] [address] [place], [address] Basophils/100 WBC (Bld) 0.6 % Normal 0-1 [facility] Comment on above: Performed By: #### L 500.4100, L501.9985, L500.4050, L502.0250, L506.1001, L100.0100, L501.9520 #### [facility] [address] [place], [address] Eosinophils/100 WBC (Bld) 6.1 % High 0-5 [facility] Comment on above: Performed By: #### L 500.4100, L501.9985, L500.4050, L502.0250, L506.1001, L100.0100, L501.9520 #### [facility] [address] [place], [address] Erythrocyte distribution width (RBC) [Ratio] 16.4 % High 11.6-14.6 [facility] Comment on above: Performed By: #### L 500.4100, L501.9985, L500.4050, L502.0250, L506.1001, L100.0100, L501.9520 #### [facility] [address] [place], [address] Hematocrit (Bld) [Volume fraction] 36.1 % Low 37-47 [facility] Comment on above: Performed By: #### L 500.4100, L501.9985, L500.4050, L502.0250, L506.1001, L100.0100, L501.9520 #### [facility] [address] [place], [address] Hemoglobin (Bld) [Mass/Vol] 11.4 g/dL Low 12.0-15.0 [facility] Comment on above: Performed By: #### L 500.4100, L501.9985, L500.4050, L502.0250, L506.1001, L100.0100, L501.9520 #### [facility] [address] [place], [address] IG% 0.500 Normal 0.0-0.9 [facility] Comment on above: Result Comment: IG% - Immature Granulocytes (promyelocytes, myelocytes and metamyelocytes) > 1% indicates that a LEFT SHIFT is Present. Performed By: #### L 500.4100, L501.9985, L500.4050, L502.0250, L506.1001, L100.0100, L501.9520 #### [facility] [address] [place], [address] Lymphocytes/100 WBC (Bld) 18.6 % Low 19-41 [facility] Comment on above: Performed By: #### L 500.4100, L501.9985, L500.4050, L502.0250, L506.1001, L100.0100, L501.9520 #### [facility] [address] [place], [address] MCH (RBC) [Entitic mass] 27.7 pg Normal 27.0-32.0 [facility] Comment on above: Performed By: #### L 500.4100, L501.9985, L500.4050, L502.0250, L506.1001, L100.0100, L501.9520 #### [facility] [address] [place], [address] MCHC (RBC) [Mass/Vol] 31.6 g/dL Low 32-36 [facility] Comment on above: Performed By: #### L 500.4100, L501.9985, L500.4050, L502.0250, L506.1001, L100.0100, L501.9520 #### [facility] [address] [place], [address] MCV (RBC) [Entitic vol] 87.8 fL Normal 81-99 [facility] Comment on above: Performed By: #### L 500.4100, L501.9985, L500.4050, L502.0250, L506.1001, L100.0100, L501.9520 #### [facility] [address] [place], [address] Monocytes/100 WBC (Bld) 8.4 % Normal 0-10 [facility] Comment on above: Performed By: #### L 500.4100, L501.9985, L500.4050, L502.0250, L506.1001, L100.0100, L501.9520 #### [facility] [address] [place], [address] Neutrophils/100 WBC (Bld) 65.8 % Normal 47-70 [facility] Comment on above: Performed By: #### L 500.4100, L501.9985, L500.4050, L502.0250, L506.1001, L100.0100, L501.9520 #### [facility] [address] [place], [address] Nucleated RBC (Bld) [#/Vol] 0 10*3/uL Normal 0-5 [facility] Comment on above: Performed By: #### L 500.4100, L501.9985, L500.4050, L502.0250, L506.1001, L100.0100, L501.9520 #### [facility] [address] [place], [address] Platelet mean volume (Bld) [Entitic vol] 10.7 fL Normal 6.2-12.0 [facility] Comment on above: Performed By: #### L 500.4100, L501.9985, L500.4050, L502.0250, L506.1001, L100.0100, L501.9520 #### [facility] [address] [place], [address] Platelets (Bld) [#/Vol] 244 10*3/uL Normal 150-450 [facility] Comment on above: Performed By: #### L 500.4100, L501.9985, L500.4050, L502.0250, L506.1001, L100.0100, L501.9520 #### [facility] [address] [place], [address] RBC (Bld) [#/Vol] 4.11 10*6/uL Low 4.2-5.4 [facility] Comment on above: Performed By: #### L 500.4100, L501.9985, L500.4050, L502.0250, L506.1001, L100.0100, L501.9520 #### [facility] [address] [place], [address] RDW SD 52.7 fl High 35.1-43.9 [facility] Comment on above: Performed By: #### L 500.4100, L501.9985, L500.4050, L502.0250, L506.1001, L100.0100, L501.9520 #### [facility] [address] [place], [address] WBC (Bld) [#/Vol] 8.1 10*3/uL Normal 4.4-11.0 [facility] Comment on above: Performed By: #### L 500.4100, L501.9985, L500.4050, L502.0250, L506.1001, L100.0100, L501.9520 #### [facility] [address] [place], [address] Eosinophil percentageOrdered By: Donta Sewet on 12-12-2024 Eosinophils/100 WBC (Bld) 6.1 % High 0-5 [facility] Erythrocyte distribution wid th ratioOrdered By: Donta Sweet on 12-12-2024 Erythrocyte distribution width (RBC) [Ratio] 16.4 % High 11.6-14.6 [facility] Erythrocyte distribution wid th standard deviationOrdered By: Donta Sweet on 12-12-2024 Erythrocyte distribution width (RBC) [Ratio] 52.7 fl High 35.1-43.9 [facility] Hematocrit Auto (Bld) [Volum e fraction]Ordered By: Donta Sweet on 12-12-2024 Hematocrit (Bld) [Volume fraction] 36.1 % Low 37-47 [facility] Hemoglobin measurementOrdere d By: Donta Sweet on 12-12-2024 Hemoglobin (Bld) [Mass/Vol] 11.4 g/dL Low 12.0-15.0 [facility] Immature granulocytes/100 WB C Auto (Bld)Ordered By: Donta Sweet on 12-12-2024 Immature granulocytes/100 WBC (Bld) 0.500 % 0.0-0.9 [facility] Comment on above: IG% - Immature Granu locytes (promyelocytes, myelocytes and metamyelocytes) > 1% indicates that a LEFT SHIFT is Present. MCV (mean corpuscular volume ) determinationOrdered By: Donta Sweet on 12-12-2024 MCV (RBC) [Entitic vol] 87.8 fL 81-99 [facility] Mean corpuscular hemoglobin (MCH) determinationOrdered By: Donta Sweet 12-12-2024 MCH (RBC) [Entitic mass] 27.7 pg 27.0-32.0 [facility] Mean corpuscular hemoglobin concentration (MCHC) determinationOrdered By: Donta Sweet 12-12-2024 MCHC (RBC) [Mass/Vol] 31.6 g/dL Low 32-36 [facility] Mean platelet volume determi nationOrdered By: Donta Sweet 12-12-2024 Platelet mean volume (Bld) [Entitic vol] 10.7 fL 6.2-12.0 [facility] Monocyte percentageOrdered B y: Donta Sweet on 12-12-2024 Monocytes/100 WBC (Bld) 8.4 % 0-10 [facility] Neutrophil percentageOrdered By: Donta Sweet on 12-12-2024 Neutrophils/100 WBC (Bld) 65.8 % 47-70 [facility] Nucleated red blood cell per centageOrdered By: Donta Sweet on 12-12-2024 Nucleated RBC/100 WBC (Bld) [Ratio] 0 % 0-5 [facility] Platelet countOrdered By: Luis Angel Sweet on 12-12-2024 Platelets (Bld) [#/Vol] 244 10*3/uL 150-450 [facility] RBC Auto (Bld) [#/Vol]Ordere d By: Donta Popeok on 12-12-2024 RBC (Bld) [#/Vol] 4.11 10*6/uL Low 4.2-5.4 [facility] White blood cell (WBC) count Ordered By: Donta Sweet on 12-12-2024 WBC (Bld) [#/Vol] 8.1 10*3/uL 4.4-11.0 [facility] Absolute lymphocyte countOrd ered By: Donta Sweet on 12-05-2024 Lymphocytes Auto (Unsp spec) [#/Vol] 1.57 10*3/uL 0.83-4.51 [facility] Absolute neutrophil countOrd ered By: Donta Sweet on 12-05-2024 Neutrophils (Bld) [#/Vol] 7.2 10*3/uL 2.0-7.7 [facility] Anion gap in Serum or Plasma Ordered By: Donta Sweet on 12-05-2024 Anion gap [Moles/Vol] 14 mmol/L 5-15 [facility] Automated lymphocyte count a s percentage of total leukocytesOrdered By: Donta Popeok on 12-05-2024 Lymphocytes/100 WBC Auto (Unsp spec) 15.9 % Low 19-41 [facility] BUN/creatinine ratioOrdered By: Donta Popeok on 12-05-2024 Urea nitrogen/Creatinine [Mass ratio] 28.6 mg/mg High 10-20 [facility] Basic Metabolic Profile (BMP )on 12-05-2024 BUN Normal 4-19 [facility] Comment on above: Result Comment: OVER LAPS CMP Performed By: #### L 500.4100, L501.9985, L500.4050, L502.0250, L506.1001, L100.0100, L501.9520 #### [facility] [address] [place], [address] BUN/CRE Normal 10-20 [facility] Comment on above: Result Comment: OVER LAPS CMP Performed By: #### L 500.4100, L501.9985, L500.4050, L502.0250, L506.1001, L100.0100, L501.9520 #### [facility] [address] [place], [address] Calcium Normal 7.6-11.0 [facility] Comment on above: Result Comment: OVER LAPS CMP Performed By: #### L 500.4100, L501.9985, L500.4050, L502.0250, L506.1001, L100.0100, L501.9520 #### [facility] [address] [place], [address] CL Normal 98-108 [facility] Comment on above: Result Comment: OVER LAPS CMP Performed By: #### L 500.4100, L501.9985, L500.4050, L502.0250, L506.1001, L100.0100, L501.9520 #### [facility] [facility] [address] [place], [address] CO2 Normal 21.0-32.0 [facility] Comment on above: Result Comment: OVER LAPS CMP Performed By: #### L 500.4100, L501.9985, L500.4050, L502.0250, L506.1001, L100.0100, L501.9520 #### [facility] [address] [place], [address] CREAT,SERUM Normal 0.70-1.20 [facility] Comment on above: Result Comment: OVER LAPS CMP Performed By: #### L 500.4100, L501.9985, L500.4050, L502.0250, L506.1001, L100.0100, L501.9520 #### [facility] [address] [place], [address] eGFR Normal >60 [facility] Comment on above: Result Comment: OVER LAPS CMP Performed By: #### L 500.4100, L501.9985, L500.4050, L502.0250, L506.1001, L100.0100, L501.9520 #### [facility] [address] [place], [address] GAP Normal 5-15 [facility] Comment on above: Result Comment: OVER LAPS CMP Performed By: #### L 500.4100, L501.9985, L500.4050, L502.0250, L506.1001, L100.0100, L501.9520 #### [facility] [address] [place], [address] GLU Normal 70-99 [facility] Comment on above: Result Comment: OVER LAPS CMP Performed By: #### L 500.4100, L501.9985, L500.4050, L502.0250, L506.1001, L100.0100, L501.9520 #### [facility] [address] [place], [address] Potassium Normal 3.3-5.1 [facility] Comment on above: Result Comment: OVER LAPS CMP Performed By: #### L 500.4100, L501.9985, L500.4050, L502.0250, L506.1001, L100.0100, L501.9520 #### [facility] [address] [place], [address] Basic Metabolic Profile (BMP) Normal 133-145 [facility] Comment on above: Result Comment: OVER LAPS CMP Performed By: #### L 500.4100, L501.9985, L500.4050, L502.0250, L506.1001, L100.0100, L501.9520 #### [facility] [address] [place], [address] Basophil percentageOrdered B y: Donta Sweet on 12-05-2024 Basophils/100 WBC (Bld) 0.4 % 0-1 [facility] Bilirubin, totalOrdered By: Donta Sweet on 12-05-2024 Bilirubin [Mass/Vol] 0.50 mg/dL 0.00-1.30 [facility] CBC W/Diff, Automatedon 11-25 Absolute Lymph 1.57 X10 3/uL Normal 0.83-4.51 [facility] Comment on above: Performed By: #### L 500.4100, L501.9985, L500.4050, L502.0250, L506.1001, L100.0100, L501.9520 #### [facility] [address] [place], [address] Absolute Neut 7.2 X10 3/uL Normal 2.0-7.7 [facility] Comment on above: Performed By: #### L 500.4100, L501.9985, L500.4050, L502.0250, L506.1001, L100.0100, L501.9520 #### [facility] [address] [place], [address] Basophils/100 WBC (Bld) 0.4 % Normal 0-1 [facility] Comment on above: Performed By: #### L 500.4100, L501.9985, L500.4050, L502.0250, L506.1001, L100.0100, L501.9520 #### [facility] [address] [place], [address] Eosinophils/100 WBC (Bld) 3.9 % Normal 0-5 [facility] Comment on above: Performed By: #### L 500.4100, L501.9985, L500.4050, L502.0250, L506.1001, L100.0100, L501.9520 #### [facility] [address] [place], [address] Erythrocyte distribution width (RBC) [Ratio] 16.2 % High 11.6-14.6 [facility] Comment on above: Performed By: #### L 500.4100, L501.9985, L500.4050, L502.0250, L506.1001, L100.0100, L501.9520 #### [facility] [address] [place], [address] Hematocrit (Bld) [Volume fraction] 35.1 % Low 37-47 [facility] Comment on above: Performed By: #### L 500.4100, L501.9985, L500.4050, L502.0250, L506.1001, L100.0100, L501.9520 #### [facility] [address] [facility] [address] [place], [address] Hemoglobin (Bld) [Mass/Vol] 11.1 g/dL Low 12.0-15.0 [facility] Comment on above: Performed By: #### L 500.4100, L501.9985, L500.4050, L502.0250, L506.1001, L100.0100, L501.9520 #### [facility] [address] [facility] [place], [address] IG% 0.200 Normal 0.0-0.9 [facility] Comment on above: Result Comment: IG% - Immature Granulocytes (promyelocytes, myelocytes and metamyelocytes) > 1% indicates that a LEFT SHIFT is Present. Performed By: #### L 500.4100, L501.9985, L500.4050, L502.0250, L506.1001, L100.0100, L501.9520 #### [facility] [address] [place], [address] Lymphocytes/100 WBC (Bld) 15.9 % Low 19-41 [facility] Comment on above: Performed By: #### L 500.4100, L501.9985, L500.4050, L502.0250, L506.1001, L100.0100, L501.9520 #### [facility] [address] [place], [address] MCH (RBC) [Entitic mass] 27.9 pg Normal 27.0-32.0 [facility] Comment on above: Performed By: #### L 500.4100, L501.9985, L500.4050, L502.0250, L506.1001, L100.0100, L501.9520 #### [facility] [address] [place], [address] MCHC (RBC) [Mass/Vol] 31.6 g/dL Low 32-36 [facility] Comment on above: Performed By: #### L 500.4100, L501.9985, L500.4050, L502.0250, L506.1001, L100.0100, L501.9520 #### [facility] [address] [place], [address] MCV (RBC) [Entitic vol] 88.2 fL Normal 81-99 [facility] Comment on above: Performed By: #### L 500.4100, L501.9985, L500.4050, L502.0250, L506.1001, L100.0100, L501.9520 #### [facility] [address] [place], [address] Monocytes/100 WBC (Bld) 6.9 % Normal 0-10 [facility] Comment on above: Performed By: #### L 500.4100, L501.9985, L500.4050, L502.0250, L506.1001, L100.0100, L501.9520 #### [facility] [address] [place], [address] Neutrophils/100 WBC (Bld) 72.7 % High 47-70 [facility] Comment on above: Performed By: #### L 500.4100, L501.9985, L500.4050, L502.0250, L506.1001, L100.0100, L501.9520 #### [facility] [address] [place], [address] Nucleated RBC (Bld) [#/Vol] 0 10*3/uL Normal 0-5 [facility] Comment on above: Performed By: #### L 500.4100, L501.9985, L500.4050, L502.0250, L506.1001, L100.0100, L501.9520 #### [facility] [address] [place], [address] Platelet mean volume (Bld) [Entitic vol] 11.2 fL Normal 6.2-12.0 [facility] Comment on above: Performed By: #### L 500.4100, L501.9985, L500.4050, L502.0250, L506.1001, L100.0100, L501.9520 #### [facility] [address] [place], [address] Platelets (Bld) [#/Vol] 231 10*3/uL Normal 150-450 [facility] Comment on above: Performed By: #### L 500.4100, L501.9985, L500.4050, L502.0250, L506.1001, L100.0100, L501.9520 #### [facility] [address] [place], [address] RBC (Bld) [#/Vol] 3.98 10*6/uL Low 4.2-5.4 [facility] Comment on above: Performed By: #### L 500.4100, L501.9985, L500.4050, L502.0250, L506.1001, L100.0100, L501.9520 #### [facility] [address] [place], [address] RDW SD 52.6 fl High 35.1-43.9 [facility] Comment on above: Performed By: #### L 500.4100, L501.9985, L500.4050, L502.0250, L506.1001, L100.0100, L501.9520 #### [facility] [address] [place], [address] WBC (Bld) [#/Vol] 9.9 10*3/uL Normal 4.4-11.0 [facility] Comment on above: Performed By: #### L 500.4100, L501.9985, L500.4050, L502.0250, L506.1001, L100.0100, L501.9520 #### [facility] [address] [place], [place], [id number] Calculated very low density lipoprotein (VLDL) cholesterol measurementOrdered By: Donta Sweet on 12-05-2024 Calculated very low density lipoprotein (VLDL) cholesterol measurement 19 mg/dL 5-40 [facility] Carbon dioxide, total [Moles /volume] in Central venous bloodOrdered By: Donta Sweet on 12-05-2024 CO2 [Moles/Vol] 16.3 mmol/L Low 21.0-32.0 [facility] Chloride assayOrdered By: Luis Angel Sweet on 12-05-2024 Chloride [Moles/Vol] 103 mmol/L 98-108 [facility] Comprehensive Metabolic Prof ilon 12-05-2024 Albumin [Mass/Vol] 4.3 g/dL Normal 3.4-4.8 [facility] Comment on above: Order Comment: SEND BMP TO AMIE Performed By: #### L 500.4100, L501.9985, L500.4050, L502.0250, L506.1001, L100.0100, L501.9520 #### [facility] [address] [place], [address] Albumin/Globulin [Mass ratio] 1.2 {ratio} Normal 0.9-2.4 [facility] Comment on above: Order Comment: SEND BMP TO BUILDING AND CONSTRUCTION MANAGER.MMCCONNELL Performed By: #### L 500.4100, L501.9985, L500.4050, L502.0250, L506.1001, L100.0100, L501.9520 #### [facility] [address] [place], [address] ALK PHOS 98 U/L Normal 35-104 [facility] Comment on above: Order Comment: SEND BMP TO BUILDING AND CONSTRUCTION MANAGER.MMCCONNELL Performed By: #### L 500.4100, L501.9985, L500.4050, L502.0250, L506.1001, L100.0100, L501.9520 #### [facility] [address] [place], [place], [id number] (502) ALT [Catalytic activity/Vol] 30 U/L Normal <=34 [facility] Comment on above: Order Comment: SEND BMP TO BUILDING AND CONSTRUCTION MANAGER.MMCCONNELL Performed By: #### L 500.4100, L501.9985, L500.4050, L502.0250, L506.1001, L100.0100, L501.9520 #### [facility] [address] [place], [address] AST [Catalytic activity/Vol] 39 U/L High <=31 [facility] Comment on above: Order Comment: SEND BMP TO BUILDING AND CONSTRUCTION MANAGER.MMCCONNELL Performed By: #### L 500.4100, L501.9985, L500.4050, L502.0250, L506.1001, L100.0100, L501.9520 #### [facility] [address] [place], [address] Bilirubin [Mass/Vol] 0.50 mg/dL Normal 0.00-1.30 [facility] Comment on above: Order Comment: SEND BMP TO BUILDING AND CONSTRUCTION MANAGER.MMCCONNELL Performed By: #### L 500.4100, L501.9985, L500.4050, L502.0250, L506.1001, L100.0100, L501.9520 #### [facility] [address] [place], [address] BUN/CRE 28.6 RATIO High 10-20 [facility] Comment on above: Order Comment: SEND BMP TO BUILDING AND CONSTRUCTION MANAGER.MMCCONNELL Performed By: #### L 500.4100, L501.9985, L500.4050, L502.0250, L506.1001, L100.0100, L501.9520 #### [facility] [address] [place], [address] Calcium [Mass/Vol] 9.9 mg/dL Normal 7.6-11.0 [facility] Comment on above: Order Comment: SEND BMP TO BUILDING AND CONSTRUCTION MANAGER.MMCCONNELL Performed By: #### L 500.4100, L501.9985, L500.4050, L502.0250, L506.1001, L100.0100, L501.9520 #### [facility] [address] [place], [address] Chloride [Moles/Vol] 103 mmol/L Normal 98-108 [facility] Comment on above: Order Comment: SEND BMP TO BUILDING AND CONSTRUCTION MANAGER.MMCCONNELL Performed By: #### L 500.4100, L501.9985, L500.4050, L502.0250, L506.1001, L100.0100, L501.9520 #### [facility] [address] [place], [address] CO2 [Moles/Vol] 16.3 mmol/L Low 21.0-32.0 [facility] Comment on above: Order Comment: SEND BMP TO BUILDING AND CONSTRUCTION MANAGER.MMCCONNELL Performed By: #### L 500.4100, L501.9985, L500.4050, L502.0250, L506.1001, L100.0100, L501.9520 #### [facility] [address] [place], [address] Creatinine [Mass/Vol] 1.29 mg/dL High 0.70-1.20 [facility] Comment on above: Order Comment: SEND BMP TO BUILDING AND CONSTRUCTION MANAGER.MMCCONNELL Performed By: #### L 500.4100, L501.9985, L500.4050, L502.0250, L506.1001, L100.0100, L501.9520 #### [facility] [address] [place], [address] GAP 14 Normal 5-15 [facility] Comment on above: Order Comment: SEND BMP TO BUILDING AND CONSTRUCTION MANAGER.MMCCONNELL Performed By: #### L 500.4100, L501.9985, L500.4050, L502.0250, L506.1001, L100.0100, L501.9520 #### [facility] [address] [place], [address] GFR/1.73 sq M.predicted among non-blacks MDRD (S/P/Bld) [Vol rate/Area] 45 mL/min/{1.73_m2} Low >60 [facility] Comment on above: Order Comment: SEND BMP TO BUILDING AND CONSTRUCTION MANAGER.MMCCONNELL Result Comment: mL/m in/1.73m2 CKD-EPI Creatinine Equation (2020) Performed By: #### L 500.4100, L501.9985, L500.4050, L502.0250, L506.1001, L100.0100, L501.9520 #### [facility] [address] [place], [address] Globulin (S) [Mass/Vol] 3.6 g/dL Normal 2.2-4.2 [facility] Comment on above: Order Comment: SEND BMP TO BUILDING AND CONSTRUCTION MANAGER.MMCCONNELL Performed By: #### L 500.4100, L501.9985, L500.4050, L502.0250, L506.1001, L100.0100, L501.9520 #### [facility] [address] [place], [address] Glucose [Mass/Vol] 135 mg/dL High 70-99 [facility] Comment on above: Order Comment: SEND BMP TO BUILDING AND CONSTRUCTION MANAGER.MMCCONNELL Performed By: #### L 500.4100, L501.9985, L500.4050, L502.0250, L506.1001, L100.0100, L501.9520 #### [facility] [address] [place], [address] Potassium [Moles/Vol] 4.8 mmol/L Normal 3.3-5.1 [facility] Comment on above: Order Comment: SEND BMP TO BUILDING AND CONSTRUCTION MANAGER.MMCCONNELL Performed By: #### L 500.4100, L501.9985, L500.4050, L502.0250, L506.1001, L100.0100, L501.9520 #### [facility] [address] [place], [address] Sodium [Moles/Vol] 134 mmol/L Normal 133-145 [facility] Comment on above: Order Comment: SEND BMP TO BUILDING AND CONSTRUCTION MANAGER.MMCCONNELL Performed By: #### L 500.4100, L501.9985, L500.4050, L502.0250, L506.1001, L100.0100, L501.9520 #### [facility] [address] [place], [address] T PROT 7.9 g/dL Normal 5.9-8.4 [facility] Comment on above: Order Comment: SEND BMP TO BUILDING AND CONSTRUCTION MANAGER.MMCCONNELL Performed By: #### L 500.4100, L501.9985, L500.4050, L502.0250, L506.1001, L100.0100, L501.9520 #### [facility] [address] [place], [address] Urea nitrogen [Mass/Vol] 37 mg/dL High 4-19 [facility] Comment on above: Order Comment: SEND BMP TO AMIE Performed By: #### L 500.4100, L501.9985, L500.4050, L502.0250, L506.1001, L100.0100, L501.9520 #### [facility] [address] [place], [address] Eosinophil percentageOrdered By: Donta Sweet on 12-05-2024 Eosinophils/100 WBC (Bld) 3.9 % 0-5 [facility] Erythrocyte distribution wid th ratioOrdered By: Donta Sweet on 12-05-2024 Erythrocyte distribution width (RBC) [Ratio] 16.2 % High 11.6-14.6 [facility] Erythrocyte distribution wid th standard deviationOrdered By: Donta Sweet on 12-05-2024 Erythrocyte distribution width (RBC) [Ratio] 52.6 fl High 35.1-43.9 [facility] Glomerular filtration rate ( GFR) estimation/1.73 sq m using serum, plasma, or whole bOrdered By: Donta Sweet on 12-05-2024 GFR/1.73 sq M.predicted among non-blacks MDRD (S/P/Bld) [Vol rate/Area] 45 mL/min/{1.73_m2} Low >60 [facility] Comment on above: mL/min/1.73m2 CKD-EP I Creatinine Equation (2020) Hematocrit Auto (Bld) [Volum e fraction]Ordered By: Donta Sweet on 12-05-2024 Hematocrit (Bld) [Volume fraction] 35.1 % Low 37-47 [facility] Hemoglobin A1con 12-05-2024 HbA1c (Bld) [Mass fraction] 9.0 % High <=5.6 [facility] Comment on above: Result Comment: Norm al < 5.7 % Prediabetic 5.7 - 6.4 % Diabetic >or= 6.5 % Please note range changes. Performed By: #### L 500.4100, L501.9985, L500.4050, L502.0250, L506.1001, L100.0100, L501.9520 #### [facility] [address] [place], [address] Hemoglobin A1c percentageOrd ered By: Donta Sweet on 12-05-2024 HbA1c (Bld) [Mass fraction] 9.0 % High <5.7 [facility] Comment on above: Normal < 5.7 % Predi abetic 5.7 - 6.4 % Diabetic >or= 6.5 % Please note range changes. Hemoglobin measurementOrdere d By: Donta Sweet on 12-05-2024 Hemoglobin (Bld) [Mass/Vol] 11.1 g/dL Low 12.0-15.0 [facility] Immature granulocytes/100 WB C Auto (Bld)Ordered By: Donta Shira on 12-05-2024 Immature granulocytes/100 WBC (Bld) 0.200 % 0.0-0.9 [facility] Comment on above: IG% - Immature Granu locytes (promyelocytes, myelocytes and metamyelocytes) > 1% indicates that a LEFT SHIFT is Present. LDL calc ser/plasOrdered By: Donta Shira on 12-05-2024 Cholesterol in LDL [Mass/Vol] 27 mg/dL [facility] Comment on above: Cbdzvomnfb=395-590 m g/dL & Higher Xcot=573 mg/dL or greaterFriedwald Equation for LDL-C Laboratory - Chemistry and C hemistry - challengeOrdered By: Donta Shira on 12-05-2024 AST [Catalytic activity/Vol] 39 U/L High <32 [facility] Lipid Profileon 12-05-2024 CHOL:HDL 2.08 Normal [facility] Comment on above: Order Comment: SEND BMP TO BUILDING AND CONSTRUCTION MANAGER.MMCCONMARILYN Performed By: #### L 500.4100, L501.9985, L500.4050, L502.0250, L506.1001, L100.0100, L501.0520 #### [facility] [address] [place], [place], [id number] Cholesterol [Mass/Vol] 89 mg/dL Normal <=200 [facility] Comment on above: Order Comment: SEND BMP TO BUILDING AND CONSTRUCTION MANAGER.MMCCONMARILYN Result Comment: Chol esterol level, Desirable <200 mg/dL Borderline high cholesterol 200-239 mg/dL High cholesterol >=240 mg/dL Recommendations of the NCEP Adult Treatment Panel for the following risk-cutoff thresholds for the [place] population. Performed By: #### L 500.4100, L501.9985, L500.4050, L502.0250, L506.1001, L100.0100, L501.9520 #### [facility] [address] [place], [address] Cholesterol in HDL [Mass/Vol] 43 mg/dL Normal [facility] Comment on above: Order Comment: SEND BMP TO BUILDING AND CONSTRUCTION MANAGER.DEJA Result Comment: Margot onal Cholesterol Education Program (NCEP) guidelines: <40 mg/dL: Low HDL-cholesterol (major risk factor for CHD) >= 60 mg/dL: High HDL-cholesterol (negative risk factor for CHD) HDL-cholesterol is affected by a number of factors, e.g. smoking, exercise, hormones, sex and age. Performed By: #### L 500.4100, L501.9985, L500.4050, L502.0250, L506.1001, L100.0100, L501.9520 #### [facility] [address] [place], [address] Cholesterol in LDL [Mass/Vol] 27 mg/dL Normal [facility] Comment on above: Order Comment: SEND BMP TO BUILDING AND CONSTRUCTION MANAGER.DEJA Result Comment: Bord asowuf=325-141 mg/dL Higher Laax=238 mg/dL or greater Friedwald Equation for LDL-C Performed By: #### L 500.4100, L501.9985, L500.4050, L502.0250, L506.1001, L100.0100, L501.9520 #### [facility] [address] [place], [address] Cholesterol in VLDL [Mass/Vol] 19 mg/dL Normal 5-40 [facility] Comment on above: Order Comment: SEND BMP TO BUILDING AND CONSTRUCTION MANAGER.DEJA Performed By: #### L 500.4100, L501.9985, L500.4050, L502.0250, L506.1001, L100.0100, L501.9520 #### [facility] [address] [place], [place], [id number] Triglyceride [Mass/Vol] 95 mg/dL Normal [facility] Comment on above: Order Comment: SEND BMP TO AMIE Result Comment: The drugs N-Acetylcysteine and Metamizole may falsely depress this assay. Normal range: <150 mg/dL Borderline High: 150-199 mg/dL High: 200-499 mg/dL Very High: >500 mg/dL Performed By: #### L 500.4100, L501.9985, L500.4050, L502.0250, L506.1001, L100.0100, L501.9520 #### [facility] [address], [address] MCV (mean corpuscular volume ) determinationOrdered By: Donta Sweet on 12-05-2024 MCV (RBC) [Entitic vol] 88.2 fL 81-99 [facility] Mean corpuscular hemoglobin (MCH) determinationOrdered By: Donta Sweet on 12-05-2024 MCH (RBC) [Entitic mass] 27.9 pg 27.0-32.0 [facility] Mean corpuscular hemoglobin concentration (MCHC) determinationOrdered By: Donta Sweet on 12-05-2024 MCHC (RBC) [Mass/Vol] 31.6 g/dL Low 32-36 [facility] Mean platelet volume determi nationOrdered By: Donta Sweet on 12-05-2024 Platelet mean volume (Bld) [Entitic vol] 11.2 fL 6.2-12.0 [facility] Microalb:Creat Ratio,Random URon 12-05-2024 MALB:CREAT 110.8 mg/g CRE High <30 mg/g CRE [facility] Comment on above: Performed By: #### L 500.4100, L501.9985, L500.4050, L502.0250, L506.1001, L100.0100, L501.9520 #### [facility] [address] [place], [address] MICROALBUMIN,UR 54.2 mg/L Normal <20 mg/L [facility] Comment on above: Performed By: #### L 500.4100, L501.9985, L500.4050, L502.0250, L506.1001, L100.0100, L501.9520 #### [facility] [address] [place], [address] Monocyte percentageOrdered B y: Donta Sweet on 12-05-2024 Monocytes/100 WBC (Bld) 6.9 % 0-10 [facility] Neutrophil percentageOrdered By: Donta Sweet on 12-05-2024 Neutrophils/100 WBC (Bld) 72.7 % High 47-70 [facility] Nucleated red blood cell per centageOrdered By: Donta Sweet on 12-05-2024 Nucleated RBC/100 WBC (Bld) [Ratio] 0 % 0-5 [facility] Platelet countOrdered By: Luis Angel Sweet on 12-05-2024 Platelets (Bld) [#/Vol] 231 10*3/uL 150-450 [facility] Potassium measurement (mass/ volume)Ordered By: Donta Sweet on 12-05-2024 Potassium (Unsp spec) [Mass/Vol] 4.8 mmol/L 3.3-5.1 [facility] RBC Auto (Bld) [#/Vol]Ordere d By: Donta Sweet on 12-05-2024 RBC (Bld) [#/Vol] 3.98 10*6/uL Low 4.2-5.4 [facility] Random urine creatinine stacey urement (mass/volume)Ordered By: Donta Sweet on 12-05-2024 Creatinine Unsp time (U) [Mass/Vol] 48.90 mg/dL 28.00-217.00 [facility] Screening total cholesterol/ high density lipoprotein (HDL) cholesterol ratioOrdered By: Donta Sweet on 12-05-2024 Cholesterol.total/Choles terol in HDL [Mass ratio] 2.08 {ratio} [facility] Serum creatinine measurement (mass/volume)Ordered By: Donta Sweet on 12-05-2024 Creatinine [Mass/Vol] 1.29 mg/dL High 0.70-1.20 [facility] Serum globulin measurementOr dered By: Donta Sweet on 12-05-2024 Globulin (S) [Mass/Vol] 3.6 g/dL 2.2-4.2 [facility] Serum glucose measurement (m ass/volume)Ordered By: Donta Sweet on 12-05-2024 Glucose [Mass/Vol] 135 mg/dL High 70-99 [facility] Serum or plasma alanine jose otransferase (ALT) measurementOrdered By: Donta Sweet 12-05-2024 ALT [Catalytic activity/Vol] 30 U/L <35 [facility] Serum or plasma albumin stacey urement (mass/volume)Ordered By: Donta Sweet on 12-05-2024 Albumin [Mass/Vol] 4.3 g/dL 3.4-4.8 [facility] Serum or plasma albumin/glob ulin mass ratioOrdered By: Donta Sweet 12-05-2024 Albumin/Globulin [Mass ratio] 1.2 {ratio} 0.9-2.4 [facility] Serum or plasma alkaline arianna sphatase measurementOrdered By: Donta Sweet 12-05-2024 ALP [Catalytic activity/Vol] 98 U/L 35-104 [facility] Serum or plasma calcium stacey urement (mass/volume)Ordered By: Donta Sweet 12-05-2024 Calcium [Mass/Vol] 9.9 mg/dL 7.6-11.0 [facility] Serum or plasma cholesterol in HDL measurement (mass/volume)Ordered By: Donta Sweet on 12-05-2024 Cholesterol in HDL [Mass/Vol] 43 mg/dL >40 [facility] Comment on above: National Cholesterol Education Program (NCEP) guidelines:<40 mg/dL: Low HDL-cholesterol (major risk factor for CHD)>= 60 mg/dL: High HDL-cholesterol (negative risk factor for CHD)HDL-cholesterol is affected by a number of factors, e.g. smoking, exercise, hormones, sex and age. Serum or plasma cholesterol measurement (mass/volume)Ordered By: Donta Sweet on 12-05-2024 Cholesterol [Mass/Vol] 89 mg/dL <201 [facility] Comment on above: Cholesterol level, D esirable <200 mg/dLBorderline high cholesterol 200-239 mg/dLHigh cholesterol >=240 mg/dLRecommendations of the NCEP Adult Treatment Panel for the following risk-cutoff thresholds for the [place] population. Serum or plasma urea nitroge n measurement (mass/volume)Ordered By: Donta Sweet on 12-05-2024 Urea nitrogen [Mass/Vol] 37 mg/dL High 4-19 [facility] Sodium levelOrdered By: Donta Sweet on 12-05-2024 Sodium [Moles/Vol] 134 mmol/L 133-145 [facility] TSH DL <= 0.005 mIU/L QnOrde red By: Donta Sweet on 12-05-2024 TSH Qn 1.440 uIU/mL 0.300-4.200 [facility] Thyroid Stim Hormone (TSH)on 12-05-2024 TSH 1.440 uIU/mL Normal 0.300-4.200 [facility] Comment on above: Order Comment: SEND BMP TO BUILDING AND CONSTRUCTION MANAGER.MMCCONNELL Performed By: #### L 500.4100, L501.9985, L500.4050, L502.0250, L506.1001, L100.0100, L501.9520 #### [facility] [address] [place], [address] Total proteinOrdered By: Donta Sweet 12-05-2024 Protein [Mass/Vol] 7.9 g/dL 5.9-8.4 [facility] Triglycerides measurementOrd ered By: Donta Sweet on 12-05-2024 Triglyceride [Mass/Vol] 95 mg/dL <199 [facility] Comment on above: The drugs N-Acetylcy steine and Metamizole may falsely depress this assay. Normal range: <150 mg/dLBorderline High: 150-199 mg/dLHigh: 200-499 mg/dLVery High: >500 mg/dL Urine albumin measurement wi th detection limit of 20 mg/L or less (mass/volume)Ordered By: Donta Sweet on 12-05-2024 Albumin DL <= 20 mg/L (U) [Mass/Vol] 54.2 mg/L <20 mg/L [facility] Vitamin D,25 Hydroxyon 12-05 Vitamin D 25-OH 39.4 ng/mL Normal 30-100 [facility] Comment on above: Order Comment: SEND BMP TO AMIE Result Comment: Karyn min D Status Deficiency: <20 ng/mL (50nmol/L) Insufficiency: 20-30 ng/mL (50-75 nmol/L) Sufficiency: 30-100 ng/mL (75-250 nmol/L) Toxicity: >100 ng/mL (>250 nmol/L) Performed By: #### L 500.4100, L501.9985, L500.4050, L502.0250, L506.1001, L100.0100, L501.9520 #### [facility] [address] [place], [address] White blood cell (WBC) count Ordered By: Donta Sweet on 12-05-2024 WBC (Bld) [#/Vol] 9.9 10*3/uL 4.4-11.0 [facility] Cardiology Visit Reporton Cardiology Visit Report [facility] [address] [place] [address] OFFICE VISIT Date of Service: 09/01/24 MR#: [id number] Acct: [id number] Name: MARION ROTHMAN Rep #: [id number] : 1955 Provider: EJ Christian Age/Sex: 69/F [place] [facility] Status: Signed HPI HPI History of Present Illness Details: This is pleasant 69-year-old lady who presents to the office today for a cardiovascular follow-up visit. She was [place] the [place] in [place] and suffered a witnessed cardiac arrest. CPR was initiated she was shocked twice and EKG revealed inferior ST elevation myocardial infarction. 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 She was subsequently brought back the next day and underwent angioplasty and stenting of the left anterior descending artery. Her initial ejection fraction was noted to be normal but it appeared that subsequently it had declined significantly and posthospitalization she had sustained VT was treated with IV amiodarone and underwent placement of a single-chamber ICD [employer] MRI compatible defibrillator. She was treated with guideline directed medical therapy and has done quite well. Her last echocardiogram had demonstrated a significantly reduced ejection fraction estimated to be approximately 20 to 25%. Her echocardiogram from June of this year, demonstrated an ejection fraction of 40%. From a cardiac standpoint, patient is doing well. She does not have any chest discomfort/heaviness/t ightness. Her exercise tolerance is stable for her age. She does not have any worsening symptoms of shortness of breath. She does not have any orthopnea. She denies PND. She does not have any symptoms of congestive heart failure. She does not have any palpitations that she is aware of. She does not have any lightheadedness or dizziness. She does not have any near- syncope or syncope. She does not have any lower extremity edema. She does not have any symptoms of claudication. 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 Is patient in pain?: No Allergies carvedilol Adverse Reaction (Verified 09/01/24 09:07) Diarrhea ESTrogens, conj synthetic Allergy (Unknown, Uncoded 09/01/24 09:07) unknown Medications ???Medication ???Instructions ???Recorded ???Confirmed ???Type aspirin 81 mg tablet,delayed 81 mg PO DAILY 12/23/22 09/01/24 H istory release (Adult Low Dose Aspirin) spironolactone 25 mg tablet 12.5 mg PO DAILY 12/23/22 09/01/24 History ticagrelor 90 mg tablet (Brilinta) 90 mg PO BID 12/23/22 09/01/24 H istory empagliflozin 25 mg tablet 25 mg PO QAM 09/27/23 05/08/25 His tory (Jardiance) levothyroxine 25 mcg tablet 25 mcg PO DAILY 01/21/23 09/01/24 History cholecalciferol (vitamin D3) 50 50 mcg PO DAILY 08/10/23 09/01/24 History mcg (2,000 unit) capsule metformin 1,000 mg tablet 1,000 mg PO BID 08/10/23 09/01/24 History atorvastatin 80 mg tablet (Lipitor) 80 mg PO QDAY 03/21/24 09/01/24 History metoprolol tartrate 25 mg tablet 25 mg PO BID #180 TABLETS 03/21/24 09/01/24 Rx sacubitril 49 mg-valsartan 51 mg 1 tab PO BID #180 tabs 09/01/24 Rx tablet (Entresto) Ejection fraction %: 40 Have you fallen in the past year?: No PFSH Medical History Implantable cardioverter-defibrill ator (ICD) in situ Ischemic cardiomyopathy Sudden cardiac arrest Atherosclerotic heart disease of [place] coronary artery without angina pectoris Cataract STEMI (ST elevation myocardial infarction) Chronic kidney disease, stage 3b Edema Ventricular tachycardia Cardiopulmonary arrest Hyperlipidemia Diabetes mellitus, type II Surgical History History of coronary artery stent placement (11/25/22) History of back surgery History of hysterectomy Cardiac defibrillator in place (11/27/22) Family History Mother Breast cancer Sister Colon cancer Diabetes Father Diabetes Social History Smoking Status: Never smoker alcohol intake: never substance use type: does not use caffeine: Yes Type: carbonated beverages Number of servings: 1 ROS Const Const: Negative for fatigue or weakness Eyes Eyes: Negative for change in vision ENT ENT: Negative for dizziness or (more content not included)... Normal [facility] Hemoglobin A1con 06-05-2024 HbA1c (Bld) [Mass fraction] 7.7 % High 3.8-5.6 [facility] Comment on above: Result Comment: Norm al < 5.7 % Prediabetic 5.7 - 6.4 % Diabetic >or= 6.5 % Please note range changes. Performed By: #### L 500.4100, L501.9985, L500.4050, L502.0250, L506.1001, L100.0100, L501.9520 #### [facility] [address] [place], [address] CBC W/Diff, Automatedon 02-0 7-202 Absolute Lymph 0.82 X10 3/uL Low 0.83-4.51 [facility] Comment on above: Performed By: #### L 100.0100, L500.4100, L501.9985, M100.678, L506.1000, L501.9520, L500.4050 #### [facility] [address] [place], [address] Absolute Neut 5.5 X10 3/uL Normal 2.0-7.7 [facility] Comment on above: Performed By: #### L 100.0100, L500.4100, L501.9985, M100.678, L506.1000, L501.9520, L500.4050 #### [facility] [address] [place], [address] Basophils/100 WBC (Bld) 0.4 % Normal 0-1 [facility] Comment on above: Performed By: #### L 100.0100, L500.4100, L501.9985, M100.678, L506.1000, L501.9520, L500.4050 #### [facility] [address] [place], [address] Eosinophils/100 WBC (Bld) 2.1 % Normal 0-5 [facility] Comment on above: Performed By: #### L 100.0100, L500.4100, L501.9985, M100.678, L506.1000, L501.9520, L500.4050 #### [facility] [address] [place], [address] Erythrocyte distribution width (RBC) [Ratio] 14.9 % High 11.6-14.6 [facility] Comment on above: Performed By: #### L 100.0100, L500.4100, L501.9985, M100.678, L506.1000, L501.9520, L500.4050 #### [facility] [address] [place], [address] Hematocrit (Bld) [Volume fraction] 42.6 % Normal 37-47 [facility] Comment on above: Performed By: #### L 100.0100, L500.4100, L501.9985, M100.678, L506.1000, L501.9520, L500.4050 #### [facility] [address] [place], [address] Hemoglobin (Bld) [Mass/Vol] 13.3 g/dL Normal 12.0-15.0 [facility] Comment on above: Performed By: #### L 100.0100, L500.4100, L501.9985, M100.678, L506.1000, L501.9520, L500.4050 #### [facility] [address] [place], [address] IG% 0.300 Normal 0.0-0.9 [facility] Comment on above: Result Comment: IG% - Immature Granulocytes (promyelocytes, myelocytes and metamyelocytes) > 1% indicates that a LEFT SHIFT is Present. Performed By: #### L 100.0100, L500.4100, L501.9985, M100.678, L506.1000, L501.9520, L500.4050 #### [facility] [address] [place], [address] Lymphocytes/100 WBC (Bld) 11.4 % Low 19-41 [facility] Comment on above: Performed By: #### L 100.0100, L500.4100, L501.9985, M100.678, L506.1000, L501.9520, L500.4050 #### [facility] [address] [place], [address] MCH (RBC) [Entitic mass] 28.4 pg Normal 27.0-32.0 [facility] Comment on above: Performed By: #### L 100.0100, L500.4100, L501.9985, M100.678, L506.1000, L501.9520, L500.4050 #### [facility] [address] [place], [address] MCHC (RBC) [Mass/Vol] 31.2 g/dL Low 32-36 [facility] Comment on above: Performed By: #### L 100.0100, L500.4100, L501.9985, M100.678, L506.1000, L501.9520, L500.4050 #### [facility] [address] [place], [address] MCV (RBC) [Entitic vol] 91.0 fL Normal 81-99 [facility] Comment on above: Performed By: #### L 100.0100, L500.4100, L501.9985, M100.678, L506.1000, L501.9520, L500.4050 #### [facility] [address] [place], [address] Monocytes/100 WBC (Bld) 9.4 % Normal 0-10 [facility] Comment on above: Performed By: #### L 100.0100, L500.4100, L501.9985, M100.678, L506.1000, L501.9520, L500.4050 #### [facility] [address] [place], [address] Neutrophils/100 WBC (Bld) 76.4 % High 47-70 [facility] Comment on above: Performed By: #### L 100.0100, L500.4100, L501.9985, M100.678, L506.1000, L501.9520, L500.4050 #### [facility] [address] [place], [address] Nucleated RBC (Bld) [#/Vol] 0 10*3/uL Normal 0-5 [facility] Comment on above: Performed By: #### L 100.0100, L500.4100, L501.9985, M100.678, L506.1000, L501.9520, L500.4050 #### [facility] [address] [place], [address] Platelet mean volume (Bld) [Entitic vol] 11.1 fL Normal 6.2-12.0 [facility] Comment on above: Performed By: #### L 100.0100, L500.4100, L501.9985, M100.678, L506.1000, L501.9520, L500.4050 #### [facility] [address] [place], [address] Platelets (Bld) [#/Vol] 171 10*3/uL Normal 150-450 [facility] Comment on above: Performed By: #### L 100.0100, L500.4100, L501.9985, M100.678, L506.1000, L501.9520, L500.4050 #### [facility] [address] [place], [address] RBC (Bld) [#/Vol] 4.68 10*6/uL Normal 4.2-5.4 [facility] Comment on above: Performed By: #### L 100.0100, L500.4100, L501.9985, M100.678, L506.1000, L501.9520, L500.4050 #### [facility] [address] [place], [address] RDW SD 49.3 fl High 35.1-43.9 [facility] Comment on above: Performed By: #### L 100.0100, L500.4100, L501.9985, M100.678, L506.1000, L501.9520, L500.4050 #### [facility] [address] [place], [address] WBC (Bld) [#/Vol] 7.2 10*3/uL Normal 4.4-11.0 [facility] Comment on above: Performed By: #### L 100.0100, L500.4100, L501.9985, M100.678, L506.1000, L501.9520, L500.4050 #### [facility] [address] [place], [address] Comprehensive Metabolic Prof ilon 06-03-2024 Albumin [Mass/Vol] 3.8 g/dL Normal 3.2-5.0 [facility] Comment on above: Performed By: #### L 500.4100, L501.9985, L500.4050, L502.0250, L506.1001, L100.0100, L501.9520 #### [facility] [address] [place], [address] Albumin/Globulin [Mass ratio] 0.8 {ratio} Low 0.9-2.4 [facility] Comment on above: Performed By: #### L 500.4100, L501.9985, L500.4050, L502.0250, L506.1001, L100.0100, L501.9520 #### [facility] [address] [place], [address] ALK P 109 U/L Normal 45-117 [facility] Comment on above: Performed By: #### L 500.4100, L501.9985, L500.4050, L502.0250, L506.1001, L100.0100, L501.9520 #### [facility] [address] [place], [address] ALT [Catalytic activity/Vol] 40 U/L Normal 13-56 [facility] Comment on above: Performed By: #### L 500.4100, L501.9985, L500.4050, L502.0250, L506.1001, L100.0100, L501.9520 #### [facility] [address] [place], [address] AST [Catalytic activity/Vol] 46 U/L High 15-37 [facility] Comment on above: Performed By: #### L 500.4100, L501.9985, L500.4050, L502.0250, L506.1001, L100.0100, L501.9520 #### [facility] [address] [place], [address] Bilirubin [Mass/Vol] 0.70 mg/dL Normal 0.20-1.00 [facility] Comment on above: Result Comment: For patients on eltrombopag therapy, use of Dimension [place] TBIL is not recommended. Performed By: #### L 500.4100, L501.9985, L500.4050, L502.0250, L506.1001, L100.0100, L501.9520 #### [facility] [address] [place], [address] BUN/CRE 15.8 RATIO Normal 10-20 [facility] Comment on above: Performed By: #### L 500.4100, L501.9985, L500.4050, L502.0250, L506.1001, L100.0100, L501.9520 #### [facility] [address] [place], [address] CA,Total 9.6 mg/dL Normal 8.5-10.1 [facility] Comment on above: Performed By: #### L 500.4100, L501.9985, L500.4050, L502.0250, L506.1001, L100.0100, L501.9520 #### [facility] [address] [place], [address] Chloride [Moles/Vol] 101 mmol/L Normal 98-107 [facility] Comment on above: Performed By: #### L 500.4100, L501.9985, L500.4050, L502.0250, L506.1001, L100.0100, L501.9520 #### [facility] [address] [place], [address] CO2 [Moles/Vol] 22.0 mmol/L Normal 21.0-32.0 [facility] Comment on above: Performed By: #### L 500.4100, L501.9985, L500.4050, L502.0250, L506.1001, L100.0100, L501.9520 #### [facility] [address] [place], [address] Creatinine [Mass/Vol] 1.33 mg/dL High 0.55-1.02 [facility] Comment on above: Result Comment: The validity of the calculated GFR GFRAA in patients over 70 years has not been determined. Clinical correlation is essential. Performed By: #### L 500.4100, L501.9985, L500.4050, L502.0250, L506.1001, L100.0100, L501.9520 #### [facility] [address] [place], [address] EST GFR - AA 51 mL/min Low >60 [facility] Comment on above: Result Comment: Afri can [place]uv[place] GFR Calc Performed By: #### L 500.4100, L501.9985, L500.4050, L502.0250, L506.1001, L100.0100, L501.9520 #### [facility] [address] [place], [address] GAP 11 Normal 5-15 [facility] Comment on above: Performed By: #### L 500.4100, L501.9985, L500.4050, L502.0250, L506.1001, L100.0100, L501.9520 #### [facility] [address] [place], [address] GFR/1.73 sq M.predicted among non-blacks MDRD (S/P/Bld) [Vol rate/Area] 42 mL/min/{1.73_m2} Low >60 [facility] Comment on above: Result Comment: Non- GFR Calc Performed By: #### L 500.4100, L501.9985, L500.4050, L502.0250, L506.1001, L100.0100, L501.9520 #### [facility] [address] [place], [address] Globulin (S) [Mass/Vol] 4.5 g/dL High 2.2-4.2 [facility] Comment on above: Performed By: #### L 500.4100, L501.9985, L500.4050, L502.0250, L506.1001, L100.0100, L501.9520 #### [facility] [address] [place], [address] Glucose [Mass/Vol] 182 mg/dL High 74-106 [facility] Comment on above: Result Comment: Fast ing Glucose result greater than or equal to 126 mg/dL suggests DIABETES MELLITUS per A.D.A. criteria. Performed By: #### L 500.4100, L501.9985, L500.4050, L502.0250, L506.1001, L100.0100, L501.9520 #### [facility] [address] [place], [address] Potassium [Moles/Vol] 4.3 mmol/L Normal 3.5-5.1 [facility] Comment on above: Performed By: #### L 500.4100, L501.9985, L500.4050, L502.0250, L506.1001, L100.0100, L501.9520 #### [facility] [address] [place], [address] Sodium [Moles/Vol] 134 mmol/L Low 136-145 [facility] Comment on above: Performed By: #### L 500.4100, L501.9985, L500.4050, L502.0250, L506.1001, L100.0100, L501.9520 #### [facility] [address] [place], [address] T PROT 8.3 g/dL High 6.4-8.2 [facility] Comment on above: Performed By: #### L 500.4100, L501.9985, L500.4050, L502.0250, L506.1001, L100.0100, L501.9520 #### [facility] [address] [place], [address] Urea nitrogen [Mass/Vol] 21 mg/dL High 7-18 [facility] Comment on above: Performed By: #### L 500.4100, L501.9985, L500.4050, L502.0250, L506.1001, L100.0100, L501.9520 #### [facility] [address] [place], [address] Lipid Profileon 06-03-2024 Cholesterol [Mass/Vol] 88 mg/dL Normal 200 [facility] Comment on above: Result Comment: <200 mg/dL Desirable 200-240 mg/dL Borderline >240 mg/dL High Risk Performed By: #### L 500.4100, L501.9985, L500.4050, L502.0250, L506.1001, L100.0100, L501.9520 #### [facility] [address] [place], [address] Cholesterol in HDL [Mass/Vol] 44 mg/dL Normal [facility] Comment on above: Result Comment: The drugs N-Acetylcysteine and Metamizole may falsely depress this assay. Reference Range HDL <40 mg/dL Low HDL Cholesterol HDL >or= 60 mg/dL High HDL Cholesterol Performed By: #### L 500.4100, L501.9985, L500.4050, L502.0250, L506.1001, L100.0100, L501.9520 #### [facility] [address] [place], [address] Cholesterol in LDL [Mass/Vol] 23 mg/dL Normal 0-130 [facility] Comment on above: Performed By: #### L 500.4100, L501.9985, L500.4050, L502.0250, L506.1001, L100.0100, L501.9520 #### [facility] [address] [place], [address] Cholesterol in VLDL [Mass/Vol] 21 mg/dL Normal 5-40 [facility] Comment on above: Performed By: #### L 500.4100, L501.9985, L500.4050, L502.0250, L506.1001, L100.0100, L501.9520 #### [facility] [address] [place], [address] Triglyceride [Mass/Vol] 104 mg/dL Normal [facility] Comment on above: Result Comment: The drugs N-Acetylcysteine and Metamizole may falsely depress this assay. Serum Triglycerides Reference Interval Normal <150 mg/dL Borderline high 150 - 199 mg/dL High 200 - 499 mg/dL Very High > or = 500 mg/dL Performed By: #### L 500.4100, L501.9985, L500.4050, L502.0250, L506.1001, L100.0100, L501.9520 #### [facility] [address] [place], [address] M100.678on 06-03-2024 M100.678 Results called on 06/03/24-1114 by ANTONIA to ()[phone]. Copy of report sent to Infection Control Printer [id number] 06/03/24 1113 ANTONIA. FLUABV+SARS-CoV-2+RSV Pnl Resp GABRIEL+probe Normal Reference Range = Negative GeneXpert Instrument, PCR method SARS-CoV-2 (COVID 19) Negative INFLUENZA A A Positive A INFLUENZA B Negative RSV PCR Negative INFLUENZAE A Normal [facility] Comment on above: Performed By: #### L 500.4100, L501.9985, L500.4050, L502.0250, L506.1001, L100.0100, L501.9520 #### [facility] [address] [place], [place], [address] Thyroid Stim Hormone (TSH)on 06-03-2024 TSH 0.585 uIU/mL Normal 0.358-3.740 [facility] Comment on above: Performed By: #### L 500.4100, L501.9985, L500.4050, L502.0250, L506.1001, L100.0100, L501.9520 #### [facility] [address] [place], [address] Vitamin D,25 Hydroxyon 06-03 Vitamin D 25-OH 36.3 ng/mL Normal [facility] Comment on above: Result Comment: Karyn min D 25(OH) Status Range Deficiency <20 ng/mL (50nmol/L) Insufficiency 20 - 30 ng/mL (50 - 75 nmol/L) Sufficiency 30 - 100 ng/mL (75 - 250 nmol/L) Toxicity >100 ng/mL (>250 nmol/L) Performed By: #### L 500.4100, L501.9985, L500.4050, L502.0250, L506.1001, L100.0100, L501.9520 #### [facility] [address] [place], [address] Cardiology Visit Reporton Cardiology Visit Report [facility] [address] [place] [address] OFFICE VISIT Date of Service: 03/21/24 MR#: [id number] Acct: [id number] Name: MARION ROTHMAN Rep #: [id number] : 1955 Provider: CASA seymour Age/Sex: 69/F [place] [facility] Status: Signed HPI HPI History of Present Illness Details: This is pleasant 69-year-old lady who presents to the office today for a cardiovascular follow-up visit. [place] suffered a witnessed cardiac arrest. CPR was initiated she was shocked twice and EKG revealed inferior ST elevation myocardial infarction. 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 She was subsequently brought back the next day and underwent angioplasty and stenting of the left anterior descending artery. Her initial ejection fraction was noted to be normal but it appeared that subsequently it had declined significantly and posthospitalization she had sustained VT was treated with IV amiodarone and underwent placement of a single-chamber ICD [employer] MRI compatible defibrillator. She was treated with guideline directed medical therapy and has done quite well. Her last echocardiogram had demonstrated a significantly reduced ejection fraction estimated to be approximately 20 to 25%. Her echocardiogram from June of this year, demonstrated an ejection fraction of 40%. From a cardiac standpoint, the patient is doing well. She denies any palpitations, chest pain, pressure or heaviness. She denies SOB, Orthopnea, and PND. She does not have bleeding issues; no blood in urine, stool or nosebleeds. She denies any decrease in energy level, myalgias, or claudication. She does not edema or sudden weight gain. She denies dizziness, lightheadedness, syncopal or near syncopal episodes, and headaches. Patient states that her blood pressures at home average 130's/70-80's. 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 Is patient in pain?: No Allergies carvedilol Adverse Reaction (Verified 03/21/24 11:34) Diarrhea ESTrogens, conj synthetic Allergy (Unknown, Uncoded 03/21/24 11:34) unknown Medications ???Medication ???Instructions ???Recorded ???Confirmed ???Type aspirin 81 mg tablet,delayed 81 mg PO DAILY 12/23/22 03/21/24 History release (Adult Low Dose Aspirin) spironolactone 25 mg tablet 12.5 mg PO DAILY 12/23/22 03/21/24 History ticagrelor 90 mg tablet (Brilinta) 90 mg PO BID 12/23/22 03/21/24 History empagliflozin 25 mg tablet 25 mg PO QAM 01/21/23 03/21/24 History (Jardiance) levothyroxine 25 mcg tablet 25 mcg PO DAILY 01/21/23 03/21/24 History sacubitril 24 mg-valsartan 26 mg 1 tab PO BID #180 tabs 04/03/23 03/21/24 Rx tablet (Entresto) cholecalciferol (vitamin D3) 50 50 mcg PO DAILY 08/10/23 03/21/24 History mcg (2,000 unit) capsule metformin 1,000 mg tablet 1,000 mg PO BID 08/10/23 03/21/24 History atorvastatin 80 mg tablet (Lipitor) 80 mg PO QDAY 03/21/24 03/21/24 History metoprolol tartrate 25 mg tablet 25 mg PO BID #180 TABLETS 03/21/24 Rx Have you fallen in the past year?: No PFSH Medical History Implantable cardioverter-defibrill ator (ICD) in situ Ischemic cardiomyopathy Sudden cardiac arrest Atherosclerotic heart disease of [place] coronary artery without angina pectoris Cataract STEMI (ST elevation myocardial infarction) Chronic kidney disease, stage 3b Edema Ventricular tachycardia Cardiopulmonary arrest Hyperlipidemia Diabetes mellitus, type II Surgical History History of coronary artery stent placement (11/25/22) History of back surgery History of hysterectomy Cardiac defibrillator in place (11/27/22) Family History Mother Breast cancer Sister Colon cancer Diabetes Father Diabetes Social History Smoking Status: Never smoker alcohol intake: never substance use type: does not use caffeine: Yes Type: carbonated beverages Number of servings: 1 ROS Const Const: Negative for fatigue, weakness, fever(s), headache(s), chills, frequent falls, weight gain or weight loss Eyes Eyes: Negative for blind spots, loss of peripheral vision, transient loss of vision, blurry v (more content not included)... Normal [facility] Absolute lymphocyte countOrd ered By: Donta Sweet on 09-02-2023 Lymphocytes Auto (Unsp spec) [#/Vol] 1.53 10*3/uL 0.83-4.51 [facility] Automated lymphocyte count a s percentage of total leukocytesOrdered By: Donta Sweet on 09-02-2023 Lymphocytes/100 WBC Auto (Unsp spec) 17.6 % 19-41 [facility] Basophil percentageOrdered B y: Donta Sweet on 09-02-2023 Basophils/100 WBC (Bld) 0.7 % 0-1 [facility] Bilirubin [Mass/Vol] 0.50 mg/dL 0.20-1.00 [facility] Comment on above: For patients on eltr ombopag therapy, use of Dimension [place] TBIL is not recommended. Chloride [Moles/Vol] 110 mmol/L 98-107 [facility] Cholesterol [Mass/Vol] 209 mg/dL <200 [facility] Comment on above: <200 mg/dL Desirable 200-240 mg/dL Borderline >240 mg/dL High Risk Eosinophils/100 WBC (Bld) 4.5 % 0-5 [facility] Glucose [Mass/Vol] 125 mg/dL 74-106 [facility] Comment on above: Fasting Glucose resu lt from 100 to 125 mg/dL suggests IMPAIRED HOMEOSTASIS per A.D.A. criteria. Hemoglobin (Bld) [Mass/Vol] 12.7 g/dL 12.0-15.0 [facility] Monocytes/100 WBC (Bld) 6.5 % 0-10 [facility] Neutrophils (Bld) [#/Vol] 6.1 10*3/uL 2.0-7.7 [facility] Neutrophils/100 WBC (Bld) 70.2 % 47-70 [facility] Potassium [Moles/Vol] 4.9 mmol/L 3.5-5.1 [facility] Protein [Mass/Vol] 8.0 g/dL 6.4-8.2 [facility] Sodium [Moles/Vol] 137 mmol/L 136-145 [facility] Triglyceride [Mass/Vol] 166 mg/dL <199 [facility] Comment on above: The drugs N-Acetylcy steine and Metamizole may falsely depress this assay.Serum Triglycerides Reference Interval Normal <150 mg/dL Borderline high 150 - 199 mg/dL High 200 - 499 mg/dL Very High > or = 500 mg/dL WBC (Bld) [#/Vol] 8.7 10*3/uL 4.4-11.0 [facility] Determination of erythrocyte mean corpuscular volume (MCV)Ordered By: Donta Sweet on 09-02-2023 MCV (RBC) [Entitic vol] 93.2 fL 81-99 [facility] Erythrocyte distribution wid th ratioOrdered By: Donta Sweet on 09-02-2023 Erythrocyte distribution width (RBC) [Ratio] 15.0 % 11.6-14.6 [facility] Erythrocyte distribution wid th standard deviationOrdered By: Donta Sweet on 09-02-2023 Erythrocyte distribution width (RBC) [Entitic vol] 51.1 fL 35.1-43.9 [facility] Hematocrit Auto (Bld) [Volum e fraction]Ordered By: Donta Sweet 09-02-2023 Hematocrit (Bld) [Volume fraction] 39.6 % 37-47 [facility] Immature granulocytes/100 WB C Auto (Bld)Ordered By: Donta Sweet on 09-02-2023 Immature granulocytes/100 WBC (Bld) 0.500 % 0.0-0.9 [facility] Comment on above: IG% - Immature Granu locytes (promyelocytes, myelocytes and metamyelocytes) > 1% indicates that a LEFT SHIFT is Present. Laboratory - Chemistry and C hemistry - challengeOrdered By: Donta Sweet on 09-02-2023 Albumin/Globulin [Mass ratio] 1.0 {ratio} 0.9-2.4 [facility] ALP [Catalytic activity/Vol] 106 U/L 45-117 [facility] ALT [Catalytic activity/Vol] 23 U/L 13-56 [facility] Cholesterol in HDL [Mass/Vol] 49 mg/dL >40 [facility] Comment on above: The drugs N-Acetylcy steine and Metamizole may falsely depress this assay. Reference Range HDL <40 mg/dL Low HDL Cholesterol HDL >or= 60 mg/dL High HDL Cholesterol Cholesterol in LDL [Mass/Vol] 127 mg/dL 0-130 [facility] CO2 [Moles/Vol] 19.0 mmol/L 21.0-32.0 [facility] Globulin (S) [Mass/Vol] 4.0 g/dL 2.2-4.2 [facility] Urea nitrogen/Creatinine [Mass ratio] 35.9 mg/mg 10-20 [facility] Laboratory - Hematology and Cell countsOrdered By: Donta Sweet on 09-02-2023 MCH (RBC) [Entitic mass] 29.9 pg 27.0-32.0 [facility] MCHC (RBC) [Mass/Vol] 32.1 g/dL 32-36 [facility] Nucleated RBC/100 WBC (Bld) [Ratio] 0 % 0-5 [facility] Platelet mean volume (Bld) [Entitic vol] 11.1 fL 6.2-12.0 [facility] Platelets (Bld) [#/Vol] 278 10*3/uL 150-450 [facility] No Panel InformationOrdered By: Donta Sweet on 09-02-2023 Estimated GFR (MDRD) Amer 59 mL/min >60 [facility] Comment on above: GFR Calc Estimated GFR (MDRD) Non-Af Amer 49 mL/min >60 [facility] Comment on above: Non- GFR Calc Vitamin D 25-Hydroxy 38.2 ng/mL [facility] Comment on above: Vitamin D 25(OH) Sta tus Range Deficiency <20 ng/mL (50nmol/L) Insufficiency 20 - 30 ng/mL (50 - 75 nmol/L) Sufficiency 30 - 100 ng/mL (75 - 250 nmol/L) Toxicity >100 ng/mL (>250 nmol/L) VLDL Cholesterol 33 mg/dL 5-40 [facility] RBC Auto (Bld) [#/Vol]Ordere d By: Donta Sweet on 09-02-2023 RBC (Bld) [#/Vol] 4.25 10*6/uL 4.2-5.4 [facility] Serum or plasma calcium stacey urement (mass/volume)Ordered By: Donta Sweet on 09-02-2023 Calcium [Mass/Vol] 10.0 mg/dL 8.5-10.1 [facility] Serum or plasma creatinine m easurement (mass/volume)Ordered By: Donta Sweet on 09-02-2023 Creatinine [Mass/Vol] 1.17 mg/dL 0.55-1.02 [facility] Comment on above: The validity of the calculated GFR & GFRAA in patients over 70 years has not been determined. Clinical correlation is essential. Serum or plasma thyroid stim ulating hormone (TSH) measurement (units/volume)Ordered By: Donta Sweet on 09-02-2023 TSH Qn 1.21 uIU/mL 0.358-3.74 [facility] Serum or plasma urea nitroge n measurement (mass/volume)Ordered By: Donta Sweet on 09-02-2023 Urea nitrogen [Mass/Vol] 42 mg/dL 7-18 [facility] Thin prep Papanicolaou smear with manual screeningOrdered By: Donta Sweet on 09-02-2023 Thin prep Papanicolaou smear with manual screening 4.0 g/dL 3.2-5.0 [facility] Thin prep Papanicolaou smear with manual screening 22 U/L 15-37 [facility] Thin prep Papanicolaou smear with manual screening 8 5-15 [facility] Basophil percentageOrdered B y: Donta Sweet on 08-07-2023 Bilirubin [Mass/Vol] 0.40 mg/dL 0.20-1.00 [facility] Comment on above: For patients on eltr ombopag therapy, use of Dimension [place] TBIL is not recommended. Chloride [Moles/Vol] 108 mmol/L 98-107 [facility] Glucose [Mass/Vol] 110 mg/dL 74-106 [facility] Comment on above: Fasting Glucose resu lt from 100 to 125 mg/dL suggests IMPAIRED HOMEOSTASIS per A.D.A. criteria. Potassium [Moles/Vol] 4.0 mmol/L 3.5-5.1 [facility] Protein [Mass/Vol] 6.7 g/dL 6.4-8.2 [facility] Sodium [Moles/Vol] 139 mmol/L 136-145 [facility] Laboratory - Chemistry and C hemistry - challengeOrdered By: Donta Sweet on 08-07-2023 Albumin/Globulin [Mass ratio] 0.9 {ratio} 0.9-2.4 [facility] ALP [Catalytic activity/Vol] 67 U/L 45-117 [facility] ALT [Catalytic activity/Vol] 94 U/L 13-56 [facility] CO2 [Moles/Vol] 23.0 mmol/L 21.0-32.0 [facility] Globulin (S) [Mass/Vol] 3.6 g/dL 2.2-4.2 [facility] Urea nitrogen/Creatinine [Mass ratio] 17.3 mg/mg 10-20 [facility] No Panel InformationOrdered By: Donta Sweet on 08-07-2023 Estimated GFR (MDRD) Amer 48 mL/min >60 [facility] Comment on above: GFR Calc Estimated GFR (MDRD) Non-Af Amer 40 mL/min >60 [facility] Comment on above: Non- GFR Calc Serum or plasma calcium stacey urement (mass/volume)Ordered By: Donta Sweet on 08-07-2023 Calcium [Mass/Vol] 9.0 mg/dL 8.5-10.1 [facility] Serum or plasma creatinine m easurement (mass/volume)Ordered By: Donta Sweet on 08-07-2023 Creatinine [Mass/Vol] 1.39 mg/dL 0.55-1.02 [facility] Comment on above: The validity of the calculated GFR & GFRAA in patients over 70 years has not been determined. Clinical correlation is essential. Serum or plasma urea nitroge n measurement (mass/volume)Ordered By: Donta Sweet on 08-07-2023 Urea nitrogen [Mass/Vol] 24 mg/dL 7-18 [facility] Thin prep Papanicolaou smear with manual screeningOrdered By: Donta Sweet on 08-07-2023 Thin prep Papanicolaou smear with manual screening 3.1 g/dL 3.2-5.0 [facility] Thin prep Papanicolaou smear with manual screening 43 U/L 15-37 [facility] Thin prep Papanicolaou smear with manual screening 8 5-15 [facility] Basophil percentageOrdered B y: Donta Sweet on 07-31-2023 Bilirubin [Mass/Vol] 0.40 mg/dL 0.20-1.00 [facility] Comment on above: For patients on eltr ombopag therapy, use of Dimension [place] TBIL is not recommended. Chloride [Moles/Vol] 107 mmol/L 98-107 [facility] Glucose [Mass/Vol] 139 mg/dL 74-106 [facility] Comment on above: Fasting Glucose resu lt greater than or equal to 126 mg/dL suggests DIABETES MELLITUS per A.D.A. criteria. Potassium [Moles/Vol] 4.6 mmol/L 3.5-5.1 [facility] Protein [Mass/Vol] 7.1 g/dL 6.4-8.2 [facility] Sodium [Moles/Vol] 135 mmol/L 136-145 [facility] Laboratory - Chemistry and C hemistry - challengeOrdered By: Donta Sweet on 07-31-2023 Albumin/Globulin [Mass ratio] 0.9 {ratio} 0.9-2.4 [facility] ALP [Catalytic activity/Vol] 81 U/L 45-117 [facility] ALT [Catalytic activity/Vol] 373 U/L 13-56 [facility] CO2 [Moles/Vol] 18.0 mmol/L 21.0-32.0 [facility] Globulin (S) [Mass/Vol] 3.8 g/dL 2.2-4.2 [facility] Urea nitrogen/Creatinine [Mass ratio] 26.0 mg/mg 10-20 [facility] No Panel InformationOrdered By: Donta Sweet on 07-31-2023 Estimated GFR (MDRD) Amer 26 mL/min >60 [facility] Comment on above: GFR Calc Estimated GFR (MDRD) Non-Af Amer 22 mL/min >60 [facility] Comment on above: Non- GFR Calc Serum or plasma calcium stacey urement (mass/volume)Ordered By: Donta Sweet on 07-31-2023 Calcium [Mass/Vol] 9.1 mg/dL 8.5-10.1 [facility] Serum or plasma creatinine m easurement (mass/volume)Ordered By: Donta Sweet on 07-31-2023 Creatinine [Mass/Vol] 2.35 mg/dL 0.55-1.02 [facility] Comment on above: The validity of the calculated GFR & GFRAA in patients over 70 years has not been determined. Clinical correlation is essential. Serum or plasma urea nitroge n measurement (mass/volume)Ordered By: Donta Sweet on 07-31-2023 Urea nitrogen [Mass/Vol] 61 mg/dL 7-18 [facility] Thin prep Papanicolaou smear with manual screeningOrdered By: Donta Sweet on 07-31-2023 Thin prep Papanicolaou smear with manual screening 3.3 g/dL 3.2-5.0 [facility] Thin prep Papanicolaou smear with manual screening 307 U/L 15-37 [facility] Thin prep Papanicolaou smear with manual screening 10 5-15 [facility] Basophil percentageOrdered B y: Donta Sweet on 07-30-2023 Chloride [Moles/Vol] 107 mmol/L 98-107 [facility] Glucose [Mass/Vol] 132 mg/dL 74-106 [facility] Comment on above: Fasting Glucose resu lt greater than or equal to 126 mg/dL suggests DIABETES MELLITUS per A.D.A. criteria. Potassium [Moles/Vol] 4.4 mmol/L 3.5-5.1 [facility] Sodium [Moles/Vol] 131 mmol/L 136-145 [facility] Laboratory - Chemistry and C hemistry - challengeOrdered By: Donta Sweet on 07-30-2023 CO2 [Moles/Vol] 14.0 mmol/L 21.0-32.0 [facility] Sodium (U) [Moles/Vol] 26 mmol/L Not Establ. [facility] Urea nitrogen/Creatinine [Mass ratio] 22.7 mg/mg 10-20 [facility] No Panel InformationOrdered By: Donta Sweet on 07-30-2023 Estimated GFR (MDRD) Amer 28 mL/min >60 [facility] Comment on above: GFR Calc Estimated GFR (MDRD) Non-Af Amer 23 mL/min >60 [facility] Comment on above: Non- GFR Calc Serum or plasma calcium stacey urement (mass/volume)Ordered By: Donta Sweet on 07-30-2023 Calcium [Mass/Vol] 9.1 mg/dL 8.5-10.1 [facility] Serum or plasma creatinine m easurement (mass/volume)Ordered By: Donta Sweet on 07-30-2023 Creatinine [Mass/Vol] 2.25 mg/dL 0.55-1.02 [facility] Comment on above: The validity of the calculated GFR & GFRAA in patients over 70 years has not been determined. Clinical correlation is essential. Serum or plasma urea nitroge n measurement (mass/volume)Ordered By: Donta Sweet on 07-30-2023 Urea nitrogen [Mass/Vol] 51 mg/dL 7-18 [facility] Thin prep Papanicolaou smear with manual screeningOrdered By: Donta Sweet on 07-30-2023 Thin prep Papanicolaou smear with manual screening 10 5-15 [facility] Urine creatinine measurement (mass/volume)Ordered By: Donta Sweet 07-30-2023 Creatinine (U) [Mass/Vol] mg/dL NO RANGE EST. [facility] Absolute lymphocyte countOrd ered By: Donta Sweet on 07-27-2023 Lymphocytes Auto (Unsp spec) [#/Vol] 1.62 10*3/uL 0.83-4.51 [facility] Automated lymphocyte count a s percentage of total leukocytesOrdered By: Donta Sweet on 07-27-2023 Lymphocytes/100 WBC Auto (Unsp spec) 13.1 % 19-41 [facility] Basophil percentageOrdered B y: Donta Sweet on 07-27-2023 Basophils/100 WBC (Bld) 0.3 % 0-1 [facility] Bilirubin [Mass/Vol] 0.40 mg/dL 0.20-1.00 [facility] Comment on above: For patients on eltr ombopag therapy, use of Dimension [place] TBIL is not recommended. Chloride [Moles/Vol] 104 mmol/L 98-107 [facility] Eosinophils/100 WBC (Bld) 1.6 % 0-5 [facility] Glucose [Mass/Vol] 112 mg/dL 74-106 [facility] Comment on above: Fasting Glucose resu lt from 100 to 125 mg/dL suggests IMPAIRED HOMEOSTASIS per A.D.A. criteria. Hemoglobin (Bld) [Mass/Vol] 12.4 g/dL 12.0-15.0 [facility] Monocytes/100 WBC (Bld) 6.1 % 0-10 [facility] Neutrophils (Bld) [#/Vol] 9.7 10*3/uL 2.0-7.7 [facility] Neutrophils/100 WBC (Bld) 78.4 % 47-70 [facility] Potassium [Moles/Vol] 4.7 mmol/L 3.5-5.1 [facility] Protein [Mass/Vol] 7.4 g/dL 6.4-8.2 [facility] Sodium [Moles/Vol] 135 mmol/L 136-145 [facility] WBC (Bld) [#/Vol] 12.4 10*3/uL 4.4-11.0 [facility] Culture, urineOrdered By: Luis Angel Sweet on 07-27-2023 Bacteria identified Cx Nom (U) Presumptive E. coli [facility] Determination of erythrocyte mean corpuscular volume (MCV)Ordered By: Donta Sweet on 07-27-2023 MCV (RBC) [Entitic vol] 87.1 fL 81-99 [facility] Erythrocyte distribution wid th ratioOrdered By: Donta Sweet on 07-27-2023 Erythrocyte distribution width (RBC) [Ratio] 14.6 % 11.6-14.6 [facility] Erythrocyte distribution wid th standard deviationOrdered By: Donta Sweet on 07-27-2023 Erythrocyte distribution width (RBC) [Entitic vol] 46.5 fL 35.1-43.9 [facility] Hematocrit Auto (Bld) [Volum e fraction]Ordered By: Donta Sweet on 07-27-2023 Hematocrit (Bld) [Volume fraction] 36.4 % 37-47 [facility] Immature granulocytes/100 WB C Auto (Bld)Ordered By: Donta Sweet on 07-27-2023 Immature granulocytes/100 WBC (Bld) 0.500 % 0.0-0.9 [facility] Comment on above: IG% - Immature Granu locytes (promyelocytes, myelocytes and metamyelocytes) > 1% indicates that a LEFT SHIFT is Present. Laboratory - Chemistry and C hemistry - challengeOrdered By: Donta Sweet on 07-27-2023 Albumin/Globulin [Mass ratio] 0.8 {ratio} 0.9-2.4 [facility] ALP [Catalytic activity/Vol] 84 U/L 45-117 [facility] ALT [Catalytic activity/Vol] 446 U/L 13-56 [facility] CO2 [Moles/Vol] 17.0 mmol/L 21.0-32.0 [facility] Globulin (S) [Mass/Vol] 4.0 g/dL 2.2-4.2 [facility] Urea nitrogen/Creatinine [Mass ratio] 22.7 mg/mg 10-20 [facility] Laboratory - Hematology and Cell countsOrdered By: Donta Sweet on 07-27-2023 MCH (RBC) [Entitic mass] 29.7 pg 27.0-32.0 [facility] MCHC (RBC) [Mass/Vol] 34.1 g/dL 32-36 [facility] Nucleated RBC/100 WBC (Bld) [Ratio] 0 % 0-5 [facility] Platelet mean volume (Bld) [Entitic vol] 10.7 fL 6.2-12.0 [facility] Platelets (Bld) [#/Vol] 260 10*3/uL 150-450 [facility] No Panel InformationOrdered By: Donta Sweet on 07-27-2023 Estimated GFR (MDRD) Amer 24 mL/min >60 [facility] Comment on above: GFR Calc Estimated GFR (MDRD) Non-Af Amer 20 mL/min >60 [facility] Comment on above: Non- GFR Calc RBC Auto (Bld) [#/Vol]Ordere d By: Donta Sweet on 07-27-2023 RBC (Bld) [#/Vol] 4.18 10*6/uL 4.2-5.4 [facility] Serum or plasma calcium stacey urement (mass/volume)Ordered By: Donta Sweet on 07-27-2023 Calcium [Mass/Vol] 9.2 mg/dL 8.5-10.1 [facility] Serum or plasma creatinine m easurement (mass/volume)Ordered By: Donta Sweet on 07-27-2023 Creatinine [Mass/Vol] 2.55 mg/dL 0.55-1.02 [facility] Comment on above: The validity of the calculated GFR & GFRAA in patients over 70 years has not been determined. Clinical correlation is essential. Serum or plasma thyroid stim ulating hormone (TSH) measurement (units/volume)Ordered By: Donta Sweet on 07-27-2023 TSH Qn 1.47 uIU/mL 0.358-3.74 [facility] Serum or plasma urea nitroge n measurement (mass/volume)Ordered By: Donta Sweet on 07-27-2023 Urea nitrogen [Mass/Vol] 58 mg/dL 7-18 [facility] Thin prep Papanicolaou smear with manual screeningOrdered By: Donta Sweet on 07-27-2023 Thin prep Papanicolaou smear with manual screening 3.4 g/dL 3.2-5.0 [facility] Thin prep Papanicolaou smear with manual screening 573 U/L 15-37 [facility] Thin prep Papanicolaou smear with manual screening 14 5-15 [facility] Whole blood hemoglobin A1c/t otal hemoglobin ratio (mass fraction)Ordered By: Donta Sweet on 07-27-2023 HbA1c (Bld) [Mass fraction] 6.9 % 3.8-5.6 [facility] Comment on above: Normal < 5.7 % Predi abetic 5.7 - 6.4 % Diabetic >or= 6.5 % Please note range changes. Absolute lymphocyte countOrd ered By: Thomas Telma on 06-01-2023 Lymphocytes Auto (Unsp spec) [#/Vol] 1.23 10*3/uL 0.83-4.51 [facility] Automated lymphocyte count a s percentage of total leukocytesOrdered By: [place] [facility] on 06-01-2023 Lymphocytes/100 WBC Auto (Unsp spec) 17.4 % 19-41 [facility] Basophil percentageOrdered B y: [place] Telma on 06-01-2023 Basophils/100 WBC (Bld) 0.6 % 0-1 [facility] Bilirubin [Mass/Vol] 0.50 mg/dL 0.20-1.00 [facility] Comment on above: For patients on eltr ombopag therapy, use of Dimension [place] TBIL is not recommended. Chloride [Moles/Vol] 106 mmol/L 98-107 [facility] Cholesterol [Mass/Vol] 131 mg/dL <200 [facility] Comment on above: <200 mg/dL Desirable 200-240 mg/dL Borderline >240 mg/dL High Risk Eosinophils/100 WBC (Bld) 4.0 % 0-5 [facility] Glucose [Mass/Vol] 109 mg/dL 74-106 [facility] Comment on above: Fasting Glucose resu lt from 100 to 125 mg/dL suggests IMPAIRED HOMEOSTASIS per A.D.A. criteria. Hemoglobin (Bld) [Mass/Vol] 12.9 g/dL 12.0-15.0 [facility] Monocytes/100 WBC (Bld) 6.6 % 0-10 [facility] Neutrophils (Bld) [#/Vol] 5.0 10*3/uL 2.0-7.7 [facility] Neutrophils/100 WBC (Bld) 71.0 % 47-70 [facility] Potassium [Moles/Vol] 4.6 mmol/L 3.5-5.1 [facility] Protein [Mass/Vol] 7.9 g/dL 6.4-8.2 [facility] Sodium [Moles/Vol] 135 mmol/L 136-145 [facility] Triglyceride [Mass/Vol] 105 mg/dL <199 [facility] Comment on above: The drugs N-Acetylcy steine and Metamizole may falsely depress this assay.Serum Triglycerides Reference Interval Normal <150 mg/dL Borderline high 150 - 199 mg/dL High 200 - 499 mg/dL Very High > or = 500 mg/dL WBC (Bld) [#/Vol] 7.1 10*3/uL 4.4-11.0 [facility] Determination of erythrocyte mean corpuscular volume (MCV)Ordered By: Thomas Hollis on 06-01-2023 MCV (RBC) [Entitic vol] 89.4 fL 81-99 [facility] Direct bilirubinOrdered By: [facility] on 06-01-2023 Bilirubin.direct [Mass/Vol] 0.12 mg/dL 0.00-0.30 [facility] Erythrocyte distribution wid th ratioOrdered By: [facility] on 06-01-2023 Erythrocyte distribution width (RBC) [Ratio] 15.6 % 11.6-14.6 [facility] Erythrocyte distribution wid th standard deviationOrdered By: [facility] on 06-01-2023 Erythrocyte distribution width (RBC) [Entitic vol] 51.0 fL 35.1-43.9 [facility] Hematocrit Auto (Bld) [Volum e fraction]Ordered By: Thomas Telma on 06-01-2023 Hematocrit (Bld) [Volume fraction] 39.8 % 37-47 [facility] Immature granulocytes/100 WB C Auto (Bld)Or[facility] Immature granulocytes/100 WBC (Bld) 0.400 % 0.0-0.9 [facility] Comment on above: IG% - Immature Granu locytes (promyelocytes, myelocytes and metamyelocytes) > 1% indicates that a LEFT SHIFT is Present. Laboratory - Chemistry and C hemistry - challengeOrdered By: Thomas Telma on 06-01-2023 Albumin/Globulin [Mass ratio] 0.9 {ratio} 0.9-2.4 [facility] ALP [Catalytic activity/Vol] 111 U/L 45-117 [facility] ALT [Catalytic activity/Vol] 35 U/L 13-56 [facility] Cholesterol in HDL [Mass/Vol] 47 mg/dL >40 [facility] Comment on above: The drugs N-Acetylcy steine and Metamizole may falsely depress this assay. Reference Range HDL <40 mg/dL Low HDL Cholesterol HDL >or= 60 mg/dL High HDL Cholesterol Cholesterol in LDL [Mass/Vol] 63 mg/dL 0-130 [facility] CO2 [Moles/Vol] 22.0 mmol/L 21.0-32.0 [facility] Globulin (S) [Mass/Vol] 4.1 g/dL 2.2-4.2 [facility] Urea nitrogen/Creatinine [Mass ratio] 29.5 mg/mg 10-20 [facility] [facility] - Hematology and Cell countsOrdered By: Thomas Hollis on 06-01-2023 MCH (RBC) [Entitic mass] 29.0 pg 27.0-32.0 [facility] MCHC (RBC) [Mass/Vol] 32.4 g/dL 32-36 [facility] Nucleated RBC/100 WBC (Bld) [Ratio] 0 % 0-5 [facility] Platelets (Bld) [#/Vol] 234 10*3/uL 150-450 [facility] No Panel InformationOrdered By: Thomas Hollis on 06-01-2023 Estimated GFR (MDRD) Amer 62 mL/min >60 [facility] Comment on above: GFR Calc Estimated GFR (MDRD) Non-Af Amer 51 mL/min >60 [facility] Comment on above: Non- GFR Calc Vitamin D 25-Hydroxy 21.6 ng/mL [facility] Comment on above: Vitamin D 25(OH) Sta tus Range Deficiency <20 ng/mL (50nmol/L) Insufficiency 20 - 30 ng/mL (50 - 75 nmol/L) Sufficiency 30 - 100 ng/mL (75 - 250 nmol/L) Toxicity >100 ng/mL (>250 nmol/L) VLDL Cholesterol 21 mg/dL 5-40 [facility] Platelet mean volume Johnson-Ec ker (Bld) [Entitic vol]Ordered By: Thomas Hollis on 06-01-2023 Platelet mean volume (Bld) [Entitic vol] 11.1 fL 6.2-12.0 [facility] RBC Auto (Bld) [#/Vol]Ordere d By: Thomas Hollis on 06-01-2023 RBC (Bld) [#/Vol] 4.45 10*6/uL 4.2-5.4 [facility] Serum or plasma calcium stacey urement (mass/volume)Ordered By: Thomas Hollis on 06-01-2023 Calcium [Mass/Vol] 9.9 mg/dL 8.5-10.1 [facility] Serum or plasma creatinine m easurement (mass/volume)Ordered By: Thomas Hollis on 06-01-2023 Creatinine [Mass/Vol] 1.12 mg/dL 0.55-1.02 [facility] Comment on above: The validity of the calculated GFR & GFRAA in patients over 70 years has not been determined. Clinical correlation is essential. Serum or plasma thyroid stim ulating hormone (TSH) measurement (units/volume)Ordered By: Thomas Hollis on 06-01-2023 TSH Qn 1.44 uIU/mL 0.358-3.74 [facility] Serum or plasma urea nitroge n measurement (mass/volume)Ordered By: Thomas Hollis on 06-01-2023 Urea nitrogen [Mass/Vol] 33 mg/dL 7-18 [facility] Thin prep Papanicolaou smear with manual screeningOrdered By: Thomas Hollis on 06-01-2023 Thin prep Papanicolaou smear with manual screening 3.8 g/dL 3.2-5.0 [facility] Thin prep Papanicolaou smear with manual screening 29 U/L 15-37 [facility] Thin prep Papanicolaou smear with manual screening 7 5-15 [facility] Absolute lymphocyte countOrd ered By: Donta Sweet on 03-10-2023 Lymphocytes Auto (Unsp spec) [#/Vol] 1.49 10*3/uL 0.83-4.51 [facility] Basophil percentageOrdered B y: Donta Sweet on 03-10-2023 Basophils/100 WBC (Bld) 0.6 % 0-1 [facility] Bilirubin [Mass/Vol] 0.30 mg/dL 0.20-1.00 [facility] Comment on above: For patients on eltr ombopag therapy, use of Dimension [place] TBIL is not recommended. Chloride [Moles/Vol] 107 mmol/L 98-107 [facility] Eosinophils/100 WBC (Bld) 3.8 % 0-5 [facility] Glucose [Mass/Vol] 101 mg/dL 74-106 [facility] Comment on above: Fasting Glucose resu lt from 100 to 125 mg/dL suggests IMPAIRED HOMEOSTASIS per A.D.A. criteria. Neutrophils (Bld) [#/Vol] 5.8 10*3/uL 2.0-7.7 [facility] Neutrophils/100 WBC (Bld) 70.0 % 47-70 [facility] Potassium [Moles/Vol] 4.6 mmol/L 3.5-5.1 [facility] Protein [Mass/Vol] 8.0 g/dL 6.4-8.2 [facility] Sodium [Moles/Vol] 138 mmol/L 136-145 [facility] WBC (Bld) [#/Vol] 8.3 10*3/uL 4.4-11.0 [facility] Blood erythrocytes count (nu mber/volume)Ordered By: Donta Sweet on 03-10-2023 RBC (Bld) [#/Vol] 4.25 10*6/uL 4.2-5.4 [facility] Blood hemoglobin measurement (mass/volume)Ordered By: Donta Sweet on 03-10-2023 Hemoglobin (Bld) [Mass/Vol] 12.5 g/dL 12.0-15.0 [facility] Blood lymphocytes/100 leukoc ytesOrdered By: Donta Sweet on 03-10-2023 Lymphocytes/100 WBC (Bld) 17.9 % 19-41 [facility] Blood monocytes/100 leukocyt esOrdered By: Donta Sweet on 03-10-2023 Monocytes/100 WBC (Bld) 7.3 % 0-10 [facility] Blood platelet mean volumeOr dered By: Donta Sweet on 03-10-2023 Platelet mean volume (Bld) [Entitic vol] 11.2 fL 6.2-12.0 [facility] Determination of erythrocyte mean corpuscular volume (MCV)Ordered By: Donta Sweet on 03-10-2023 MCV (RBC) [Entitic vol] 90.8 fL 81-99 [facility] Hematocrit Auto (Bld) [Volum e fraction]Ordered By: Donta Sweet on 03-10-2023 Hematocrit (Bld) [Volume fraction] 38.6 % 37-47 [facility] Laboratory - Chemistry and C hemistry - challengeOrdered By: Donta Sweet on 03-10-2023 ALP [Catalytic activity/Vol] 113 U/L 45-117 [facility] ALT [Catalytic activity/Vol] 29 U/L 13-56 [facility] CO2 [Moles/Vol] 25.0 mmol/L 21.0-32.0 [facility] Globulin (S) [Mass/Vol] 4.2 g/dL 2.2-4.2 [facility] Urea nitrogen/Creatinine [Mass ratio] 23.6 mg/mg 10-20 [facility] Laboratory - Hematology and Cell countsOrdered By: Donta Sweet on 03-10-2023 Erythrocyte distribution width (RBC) [Entitic vol] 50.2 fL 35.1-43.9 [facility] Erythrocyte distribution width (RBC) [Ratio] 15.1 % 11.6-14.6 [facility] Immature granulocytes/100 WBC (Bld) 0.400 % 0.0-0.9 [facility] Comment on above: IG% - Immature Granu locytes (promyelocytes, myelocytes and metamyelocytes) > 1% indicates that a LEFT SHIFT is Present. MCH (RBC) [Entitic mass] 29.4 pg 27.0-32.0 [facility] Nucleated RBC/100 WBC (Bld) [Ratio] 0 % 0-5 [facility] MCHC Auto (RBC) [Mass/Vol]Or dered By: Donta Sweet on 03-10-2023 MCHC (RBC) [Mass/Vol] 32.4 g/dL 32-36 [facility] No Panel InformationOrdered By: Donta Sweet on 03-10-2023 Estimated GFR (MDRD) Amer 54 mL/min >60 [facility] Comment on above: GFR Calc Estimated GFR (MDRD) Non-Af Amer 44 mL/min >60 [facility] Comment on above: Non- GFR Calc Thyroid Stimulating Hormone (TSH) 1.46 uIU/mL 0.358-3.74 [facility] Vitamin D 25-Hydroxy 32.7 ng/mL [facility] Comment on above: Vitamin D 25(OH) Sta tus Range Deficiency <20 ng/mL (50nmol/L) Insufficiency 20 - 30 ng/mL (50 - 75 nmol/L) Sufficiency 30 - 100 ng/mL (75 - 250 nmol/L) Toxicity >100 ng/mL (>250 nmol/L) Platelets bldOrdered By: Donta Sweet on 03-10-2023 Platelets (Bld) [#/Vol] 224 10*3/uL 150-450 [facility] Serum or plasma albumin stacey urement (mass/volume)Ordered By: Donta Sweet on 03-10-2023 Albumin [Mass/Vol] 3.8 g/dL 3.2-5.0 [facility] Serum or plasma albumin/glob ulin mass ratioOrdered By: Donta Sweet on 03-10-2023 Albumin/Globulin [Mass ratio] 0.9 {ratio} 0.9-2.4 [facility] Serum or plasma calcium stacey urement (mass/volume)Ordered By: Donta Sweet on 03-10-2023 Calcium [Mass/Vol] 9.8 mg/dL 8.5-10.1 [facility] Serum or plasma creatinine m easurement (mass/volume)Ordered By: Donta Sweet 03-10-2023 Creatinine [Mass/Vol] 1.27 mg/dL 0.55-1.02 [facility] Comment on above: The validity of the calculated GFR & GFRAA in patients over 70 years has not been determined. Clinical correlation is essential. Serum or plasma urea nitroge n measurement (mass/volume)Ordered By: Donta Sweet on 03-10-2023 Urea nitrogen [Mass/Vol] 30 mg/dL 7-18 [facility] Thin prep Papanicolaou smear with manual screeningOrdered By: Donta Sweet on 03-10-2023 Thin prep Papanicolaou smear with manual screening 30 U/L 15-37 [facility] Thin prep Papanicolaou smear with manual screening 6 5-15 [facility] No Panel InformationOrdered By: Donta Sweet on 01-01-2023 Thyroid Stimulating Hormone (TSH) 2.33 uIU/mL 0.358-3.74 [facility] Whole blood hemoglobin A1c/t otal hemoglobin ratio (mass fraction)Ordered By: Donta Sweet on 01-01-2023 HbA1c (Bld) [Mass fraction] 8.8 % 3.8-5.6 [facility] Comment on above: Normal < 5.7 % Predi abetic 5.7 - 6.4 % Diabetic >or= 6.5 % Please note range changes. Absolute lymphocyte countOrd ered By: Donta Sweet on 12-01-2022 Lymphocytes Auto (Unsp spec) [#/Vol] 1.16 10*3/uL 0.83-4.51 [facility] Basophil percentageOrdered B y: Donta Sweet on 12-01-2022 Basophils/100 WBC (Bld) 0.4 % 0-1 [facility] Bilirubin [Mass/Vol] 0.80 mg/dL 0.20-1.00 [facility] Comment on above: For patients on eltr ombopag therapy, use of Dimension [place] TBIL is not recommended. Chloride [Moles/Vol] 104 mmol/L 98-107 [facility] Eosinophils/100 WBC (Bld) 1.8 % 0-5 [facility] Glucose [Mass/Vol] 173 mg/dL 74-106 [facility] Comment on above: Fasting Glucose resu lt greater than or equal to 126 mg/dL suggests DIABETES MELLITUS per A.D.A. criteria. Neutrophils (Bld) [#/Vol] 7.0 10*3/uL 2.0-7.7 [facility] Neutrophils/100 WBC (Bld) 74.1 % 47-70 [facility] Potassium [Moles/Vol] 4.0 mmol/L 3.5-5.1 [facility] Protein [Mass/Vol] 6.9 g/dL 6.4-8.2 [facility] Sodium [Moles/Vol] 136 mmol/L 136-145 [facility] WBC (Bld) [#/Vol] 9.4 10*3/uL 4.4-11.0 [facility] Blood erythrocytes count (nu mber/volume)Ordered By: Donta Sweet on 12-01-2022 RBC (Bld) [#/Vol] 3.69 10*6/uL 4.2-5.4 [facility] Blood hemoglobin measurement (mass/volume)Ordered By: Donta Sweet on 12-01-2022 Hemoglobin (Bld) [Mass/Vol] 10.9 g/dL 12.0-15.0 [facility] Blood lymphocytes/100 leukoc ytesOrdered By: Donta Sweet on 12-01-2022 Lymphocytes/100 WBC (Bld) 12.3 % 19-41 [facility] Blood monocytes/100 leukocyt esOrdered By: Donta Sweet on 12-01-2022 Monocytes/100 WBC (Bld) 9.7 % 0-10 [facility] Blood platelet mean volumeOr dered By: Donta Sweet on 12-01-2022 Platelet mean volume (Bld) [Entitic vol] 10.5 fL 6.2-12.0 [facility] Determination of erythrocyte mean corpuscular volume (MCV)Ordered By: Donta Sweet on 12-01-2022 MCV (RBC) [Entitic vol] 87.0 fL 81-99 [facility] Hematocrit Auto (Bld) [Volum e fraction]Ordered By: Donta Sweet on 12-01-2022 Hematocrit (Bld) [Volume fraction] 32.1 % 37-47 [facility] Laboratory - Chemistry and C hemistry - challengeOrdered By: Donta Sweet 12-01-2022 ALP [Catalytic activity/Vol] 218 U/L 45-117 [facility] ALT [Catalytic activity/Vol] 40 U/L 13-56 [facility] CO2 [Moles/Vol] 25.0 mmol/L 21.0-32.0 [facility] Globulin (S) [Mass/Vol] 4.5 g/dL 2.2-4.2 [facility] Urea nitrogen/Creatinine [Mass ratio] 17.2 mg/mg 10-20 [facility] Laboratory - Hematology and Cell countsOrdered By: Donta Sweet on 12-01-2022 Erythrocyte distribution width (RBC) [Entitic vol] 43.9 fL 35.1-43.9 [facility] Erythrocyte distribution width (RBC) [Ratio] 13.8 % 11.6-14.6 [facility] Immature granulocytes/100 WBC (Bld) 1.700 % 0.0-0.9 [facility] Comment on above: IG% - Immature Granu locytes (promyelocytes, myelocytes and metamyelocytes) > 1% indicates that a LEFT SHIFT is Present. MCH (RBC) [Entitic mass] 29.5 pg 27.0-32.0 [facility] Nucleated RBC/100 WBC (Bld) [Ratio] 0 % 0-5 [facility] MCHC Auto (RBC) [Mass/Vol]Or dered By: Donta Sweet on 12-01-2022 MCHC (RBC) [Mass/Vol] 34.0 g/dL 32-36 [facility] No Panel InformationOrdered By: Donta Sweet on 12-01-2022 Estimated GFR (MDRD) Amer 60 mL/min >60 [facility] Comment on above: GFR Calc Estimated GFR (MDRD) Non-Af Amer 49 mL/min >60 [facility] Comment on above: Non- GFR Calc Thyroid Stimulating Hormone (TSH) 4.23 uIU/mL 0.358-3.74 [facility] Vitamin D 25-Hydroxy 16.3 ng/mL [facility] Comment on above: Vitamin D 25(OH) Sta tus Range Deficiency <20 ng/mL (50nmol/L) Insufficiency 20 - 30 ng/mL (50 - 75 nmol/L) Sufficiency 30 - 100 ng/mL (75 - 250 nmol/L) Toxicity >100 ng/mL (>250 nmol/L) Platelets bldOrdered By: Donta Sweet on 12-01-2022 Platelets (Bld) [#/Vol] 355 10*3/uL 150-450 [facility] Serum or plasma albumin stacey urement (mass/volume)Ordered By: Donta Sweet on 12-01-2022 Albumin [Mass/Vol] 2.4 g/dL 3.2-5.0 [facility] Serum or plasma albumin/glob ulin mass ratioOrdered By: Donta Sweet on 12-01-2022 Albumin/Globulin [Mass ratio] 0.5 {ratio} 0.9-2.4 [facility] Serum or plasma calcium stacey urement (mass/volume)Ordered By: Donta Sweet on 12-01-2022 Calcium [Mass/Vol] 8.9 mg/dL 8.5-10.1 [facility] Serum or plasma creatinine m easurement (mass/volume)Ordered By: Donta Sweet on 12-01-2022 Creatinine [Mass/Vol] 1.16 mg/dL 0.55-1.02 [facility] Comment on above: The validity of the calculated GFR & GFRAA in patients over 70 years has not been determined. Clinical correlation is essential. Serum or plasma urea nitroge n measurement (mass/volume)Ordered By: Donta Sweet on 12-01-2022 Urea nitrogen [Mass/Vol] 20 mg/dL 7-18 [facility] Thin prep Papanicolaou smear with manual screeningOrdered By: Donta Sweet on 12-01-2022 Thin prep Papanicolaou smear with manual screening 43 U/L 15 [facility] Thin prep Papanicolaou smear with manual screening 7 5-15 [facility] Vital Signs Date Time Vital Sign Value Performing Clinician Faci lity 09-01-2024 09:03-0400 Body mass index (BMI) [Ratio] 23.8 kg/m2 Dr. Donta Sweet MD Work Phone: [facility] 09-01-2024 09:03-0400 Body weight 63.[address] Donta Sweet MD Work Phone: [facility] 09-01-2024 09:03-0400 Diastolic blood pressure 93 mm[Hg] Dr. Donta Sweet MD Work Phone: [facility] 09-01-2024 09:03-0400 Heart rate 82 /min Dr. Donta Sweet MD Work Phone: [facility] 09-01-2024 09:03-0400 Respiratory rate 16 /min Dr. Donta Sweet MD Work Phone: [facility] 09-01-2024 09:03-0400 Systolic blood pressure 163 mm[Hg] Dr. Donta Sweet MD Work Phone: [facility] 08-10-2023 08:52-0400 Body height 162.[address] Donta Sweet Work Phone: 2(590)[phone] [place] [address] 08-10-2023 08:52-0400 Body mass index (BMI) [Ratio] 23 kg/m2 Dr. Donta Sweet Work Phone: 7(161)[phone] [place] [address] 08-10-2023 08:52-0400 Body weight 60.[address] Donta Sweet Work Phone: 6(069)298-812770 [place] [address] 08-10-2023 08:52-0400 Diastolic blood pressure 80 mm[Hg] Dr. Donta Sweet Work Phone: 2(597)148-673870 [place] [address] 08-10-2023 08:52-0400 Heart rate 77 /min Dr. Donta Sweet Work Phone: 1(222)338-372870 [place] [address] 08-10-2023 08:52-0400 Respiratory rate 18 /min Dr. Donta Sweet Work Phone: 3(839)236-445070 [place] [address] 08-10-2023 08:52-0400 SaO2% (BldA) [Mass fraction] 98 % Dr. Donta Sweet Work Phone: 3(407)[phone] [place] [address] 08-10-2023 08:52-0400 Systolic blood pressure 146 mm[Hg] Dr. Donta Sweet Work Phone: 9(116)335-330570 [place] [address] 04-03-2023 14:25-0500 Body height 162.[address] Donta Sweet Work Phone: 5(393)816-780170 [place] [address] 04-03-2023 14:25-0500 Body mass index (BMI) [Ratio] 21.9 kg/m2 Dr. Donta Sweet Work Phone: 9(573)[phone] [place] [address] 04-03-2023 14:25-0500 Body weight 58.[address] Donta Sweet Work Phone: 9(305)977-415794 [place] [address] 04-03-2023 14:25-0500 Diastolic blood pressure 95 mm[Hg] Dr. Donta Sweet Work Phone: 8(761)054-720294 [place] [address] 04-03-2023 14:25-0500 Heart rate 93 /min Dr. Donta Sweet Work Phone: 0(416)[phone] [place] [address] 04-03-2023 14:25-0500 Respiratory rate 18 /min Dr. Donta Sweet Work Phone: [facility] 04-03-2023 14:25-0500 SaO2% (BldA) [Mass fraction] 97 % Dr. Donta Sweet Work Phone: [facility] 04-03-2023 14:25-0500 Systolic blood pressure 157 mm[Hg] Dr. Donta Sweet Work Phone: [facility] 01-21-2023 15:05-0400 Body height 162.[address] Donta Sweet Work Phone: 7(076)357-879994 [place] [address] 01-21-2023 15:05-0400 Body mass index (BMI) [Ratio] 21.9 kg/m2 Dr. Donta Swete Work Phone: [facility] 01-21-2023 15:05-0400 Body weight 58.[address] Donta Sweet Work Phone: [facility] 01-21-2023 15:05-0400 Diastolic blood pressure 89 mm[Hg] Dr. Donta Sweet Work Phone: [facility] 01-21-2023 15:05-0400 Heart rate 87 /min Dr. Donta Sweet Work Phone: [facility] 01-21-2023 15:05-0400 Respiratory rate 16 /min Dr. Donta Sweet Work Phone: [facility] 01-21-2023 15:05-0400 Systolic blood pressure 151 mm[Hg] Dr. Donta Sweet Work Phone: [facility] Encounters Encounter Date Encounter Type Care Provider Facility Start: 01-18-2025 End: 01-18-[address] Donta Sweet MD Work Phone: -[facility] Start: 01-18-2025 End: 01-18-[address] Thomas Hollis MD -[facility] Work Phone: Start: 12-15-2024 ambulatory Donta Sweet Facility:[facility] Start: 12-12-2024 End: 12-12-[address] Donta Sweet MD Work Phone: -Laboratory Phy Office 3rd Flr Start: 12-12-2024 End: 12-12-[address] Donta Sweet MD -[facility]atory [facility] 3rd Flr Start: 12-12-2024 End: 12-12-2024 ambulatory Donta Chi Shira Facility:[facility] Start: 12-05-2024 End: 12-05-[address] Donta Sweet MD Work Phone: -Laboratory Start: 12-05-2024 End: 12-05-[address] Donta Sweet MD -Laboratory Work Phone: Start: 12-05-2024 End: 12-05-2024 ambulatory Donta Chi Shira Facility:[facility] Start: 10-19-2024 End: 10-19-[address] Donta Sweet MD Work Phone: -[facility] Start: 10-19-2024 End: 10-19-[address] Thomas Hollis MD -[facility] Work Phone: Start: 09-01-2024 End: 09-01-2024 Patient encounter procedure Britta [place] -[facility] Work Phone: Start: 09-01-2024 End: 09-01-2024 ambulatory Donta Chi Shira Facility:[facility] Start: 07-20-2024 End: 07-20-2024 ambulatory Thomas Hollis Facility:[facility] Start: 07-20-2024 End: 07-20-[address] Thomas Hollis MD -[facility] Work Phone: Start: 06-03-2024 End: 06-03-2024 ambulatory Donta Chi Shira Facility:[facility] Start: 04-22-2024 End: 04-22-2024 ambulatory Thomas Hollis Facility:[facility] Start: 03-21-2024 End: 03-21-2024 ambulatory Donta Chi Shira Facility:[facility] Start: 09-02-[address] Donta Sweet Work Phone: [facility]-Laboratory Work Phone: Start: 08-28-2023 End: 08-28-[address] Donta Sweet Work Phone: [facility] Work Phone: Start: 08-28-2023 End: 08-28-[address] Donta Sweet Work Phone: [facility], [facility] Work Phone: Start: 08-10-2023 End: 08-10-[address] Donta Sweet Work Phone: [facility] Work Phone: Start: 08-07-2023 End: 08-07-[address] Donta Sweet Work Phone: [facility] Work Phone: Start: 08-07-2023 End: 08-07-[address] Donta Sweet Work Phone: [facility] Office 3rd Flr Start: 07-31-2023 End: 07-31-[address] Donta Sweet Work Phone: [facility] Work Phone: Start: 07-31-2023 End: 07-31-[address] Donta Sweet Work Phone: [facility] [place], [facility] Work Phone: Start: 07-31-2023 End: 07-31-[address] Donta Sweet Work Phone: [facility] Work Phone: Start: 07-31-2023 End: 07-31-[address] Donta Sweet Work Phone: [facility]-Laboratory, y Office 3rd Flr Start: 07-30-2023 End: 07-30-[address] Donta Sweet Work Phone: [facility] Work Phone: Start: 07-30-2023 End: 07-30-[address] [facility] Start: 07-27-2023 End: 07-27-[address] Donta Sweet Work Phone: [facility] Work Phone: Start: 07-27-2023 End: 07-27-[address] Donta Sweet Work Phone: [facility], [facility] Office 3rd Flr Start: 07-03-2023 Non-patient / Non-visit Dr. Luis Angel Sweet Work Phone: [facility] Work Phone: Start: 07-03-2023 Non-patient / Non-visit Dr. Luis Angel Sweet Work Phone: [facility] Start: 07-03-2023 End: 07-03-[address] Donta Sweet Work Phone: [facility] Work Phone: Start: 07-03-2023 End: 07-03-[address] [facility] Start: 06-01-2023 End: 06-01-[address] Donta Sweet Work Phone: [facility] Work Phone: Start: 06-01-2023 End: 06-01-[address] [facility] Flr Start: 04-03-2023 End: 04-03-[address] Donta Sweet Work Phone: [facility] Work Phone: Start: 03-10-2023 End: 03-10-[address] Donta Sweet Work Phone: [facility] Work Phone: Start: 03-10-2023 End: 03-10-[address] [facility] Start: 02-20-2023 Non-patient / Non-visit Dr. Luis Angel Sweet Work Phone: [facility] Work Phone: Start: 02-20-2023 Non-patient / Non-visit Dr. Luis Angel Sweet Work Phone: [facility] Start: 02-20-2023 End: 02-20-[address] [facility]onta Sweet [facility] Start: 01-21-2023 End: 01-21-[address] Donta Sweet Work Phone: [facility] Work Phone: Start: 01-01-2023 End: 01-01-[address] Donta Sweet Work Phone: [facility], y Office 3rd Flr Start: 12-23-2022 Non-patient / Non-visit Dr. Luis Angel Sweet Work Phone: [facility] Work Phone: Start: 12-01-2022 End: 12-01-2022 ambulatory [facility] Work Phone: Start: 12-01-2022 End: 12-01-2022 Patient encounter procedure [facility], Phy Office 3rd Flr Procedures Date Procedure Procedure Detail Performing Clinician Start: 12-05-2024 Urine microalbumin/creatinine ratio measurement Dr. Donta Sweet MD Work Phone: Start: 12-05-2024 Vitamin D, 25-hydrox y measurement Dr. Donta Sweet MD Work Phone: Comment on above: Vitamin D StatusDefi ciency: <20 ng/mL (50nmol/L)Insufficiency: 20-30 ng/mL (50-75 nmol/L)Sufficiency: 30-100 ng/mL (75-250 nmol/L)Toxicity: >100 ng/mL (>250 nmol/L) Start: 08-28-2023 CT of abdomen and pe lvis without contrast Dr. Donta Sweet Work Phone: Start: 07-31-[address] Luis Angel Sweet Work Phone: Start: 07-27-[address] Donta hall Work Phone: Start: 11-25-2022 History of placement of stent for coronary artery disease History of coronary artery stent placement Britta PAGAN Comment on above: [id number] w/ 2.75 x 38mm XIENCE [place] JENNIFER 11/25/[id number] w/ 3.5 x 30mm NAT FRONTIER JENNIFER 11/23/22 Plan of Treatment Date Care Activity Detail Author Basic metabolic 2007 panel with ionized calcium - Serum or Plasma [facility] Hemoglobin A1c/Hemoglobin.total in Blood [facility] Lipid 1996 panel - Serum or Plasma [facility] Payers Date Payer Category Payer Self-pay [id number] 2023 Medicare [id number] 2015 Unknown [id number] Unknown [id number] Unknown [id number] 2.16.8 [id number] Unknown [id number] 2.16.8 [id number] Unknown [id number] 2.16.8 [id number] Unknown [id number] 2.16.8 [id number] Unknown [id number] 2.16.8 [id number] Unknown [id number] 2.16.8 [id number] Unknown [id number] 2.16.8 [id number] Unknown [id number] 2.16.8 [id number] Unknown [id number] 2.16.8 [id number] Unknown [id number] 2.16.8 [id number] Unknown [id number] 2.16.8 [id number] Social History Date Type Detail [facility] Work Phone: Start: 1955 Sex Assigned At Female [facility] Start: 01-21-2023 End: 08-10-2023 Tobacco smoking status NHIS Unknown if ever smoked [facility] Start: 08-10-2023 [facility] Sex Female [facility] Evaluation note 11-27-2022 Note Date & Type Note Facility 11-27-2022 Evaluation note Diagnosis Onset Date Cardiac defibrillator in place November 27, 2022 acute History of coronary artery stent placement November 25, 2022 acute HTN (hypertension), benign a cute Hyperlipidemia acute LV dysfunction acute Ventricular tachycardia acut e [facility] Work Phone: Evaluation note 11-27-2022 Note Date & Type Note Facility 11-27-2022 Evaluation note Diagnosis Onset Date Implantable cardioverter-defibrillator (ICD) in situ acute Ischemic cardiomyopathy acut e Sudden cardiac arrest acute Cardiac defibrillator in place November 27, 2022 acute History of coronary artery stent placement November 25, 2022 acute HTN (hypertension), benign a cute Hyperlipidemia acute LV dysfunction acute Ventricular tachycardia acut e [facility] Work Phone: Evaluation note 11-27-2022 Note Date & Type Note Facility 11-27-2022 Evaluation note Diagnosis Onset Date Resolution Cardiac defibrillator in place November 27, 2022 acute September 01, 2024 9:03am History of coronary artery stent placement November 25, 2022 acute September 01, 2024 9:03am HTN (hypertension), benign acute September 01, 2024 9:03am Hyperlipidemia acute September 01, 2 025 9:03am LV dysfunction acute September 01, 2 025 9:03am Ventricular tachycardia acute September 01, 2024 9:03am [facility] Work Phone: Evaluation note Note Date & Type Note Facility Evaluation note No assessment information availa [facility] Work Phone: Reason for referral (narrative) Note Date & Type Note Facility Reason for referral (narrative) No reason for referral information available [facility] Work Phone: Chief Complaint and Reason for Visit Chief Complaint Amb Documentation Amb Documentation [place] HX (SHIRA) Atherosclerotic heart disease of [place] coronary a Amb Documentation Reason for Visit Cardiac defibrillato r in place History of coronary artery stent placement HTN (hypertension), benign Hyperlipidemia LV dysfunction Ventricular tachycardia Chief Complaint Atherosclerotic hear t disease of [place] coronary a Amb Documentation Pacer Check Remote NEW ICD CHECK (SCANNED) / 3p w KR 3 m fu / 2:30 w PRATIK Reason for Visit Implantable cardiove rter-defibrillator (ICD) in situ Ischemic cardiomyopathy Sudden cardiac arrest Cardiac defibrillator in place History of coronary artery stent placement HTN (hypertension), benign Hyperlipidemia LV dysfunction Ventricular tachycardia Chief Complaint Pacer Check Remote NEW ICD CHECK (SCANNED) / 3p w KR 3 m fu / 2:30 w PRATIK Heart disease, unspecified Amb Documentation Reason for Visit Implantable cardiove rter-defibrillator (ICD) in situ Ischemic cardiomyopathy Sudden cardiac arrest Cardiac defibrillator in place History of coronary artery stent placement HTN (hypertension), benign Hyperlipidemia LV dysfunction Ventricular tachycardia Chief Complaint Heart disease, unspe cified Amb Documentation CKD, STAGE 3A Chief Complaint Heart disease, unspe cified Amb Documentation CKD, STAGE 3A 4 M FU Reason for Visit Cardiac defibrillato r in place History of coronary artery stent placement HTN (hypertension), benign Hyperlipidemia LV dysfunction Ventricular tachycardia Chief Complaint Heart disease, unspe cified Amb Documentation CKD, STAGE 3A 4 M FU ACUTE KIDNEY INJURY Reason for Visit Cardiac defibrillato r in place History of coronary artery stent placement HTN (hypertension), benign Hyperlipidemia LV dysfunction Ventricular tachycardia Chief Complaint Admit Date Pacer Check Remote July 20, 2024 6:3 0am 6 M FU September 01, 2024 9:03am Pacer Check Remote October 19, 2024 10:1 5am Reason for Visit Admit Date Cardiac defibrillator in place September 01, 2024 9:03am History of coronary artery stent placeme nt September 01, 2024 9:03am HTN (hypertension), benign September 01, 2024 9:03am Hyperlipidemia September 01, 2024 9:03am LV dysfunction September 01, 2024 9:03am Ventricular tachycardia September 01, 2024 9: 03am Chief Complaint Admit Date 6 M FU September 01, 2024 9:03am Pacer Check Remote October 19, 2024 10:1 5am 2 ORDERING DRS/E ORDER & PAPER December 052024 10:02am Chief Complaint Admit Date Pacer Check Remote October 19, 2024 10:1 5am 2 ORDERING DRS/E ORDER & PAPER December 052024 10:02am Pacer Check Remote January 18, 2025 2:10am Family History No Family History Records Found Relationship Condition Age at Onset Recorded Date/T yina mother Malignant neoplasm of breast Unknown sister Malignant neoplasm of colon Unknown Diabetes mellitus Unknown father Diabetes mellitus Unknown Summary Purpose Advance Directives No Advanced Directives Records Found Additional Source Comments Care Teams (unrecognized sec tion and content) Team Status: Active Member Role Status Dates Dr. Donta Sweet MD Family Provider Active Dr. Donta Sweet MD Primary Care Provider Active Team Status: Inactive Member Role Status Dates Dr. Donta Sweet MD Primary Care Provider, Attending Provider Active Team Status: Inactive Member Role Status Dates Dr. Donta Sweet MD Referring Provider Active Dr. Thomas Hollis MD Attending Provider Active Donta CAIN MD Primary Care Provider Active Team Status: Active Member Role Status Dates Dr. Donta Sweet MD Primary Care Provider Active Natalie Gandara RN Attending Provider Active Team Status: Active Member Role Status Dates Dr. Donta Sweet MD Primary Care Provider Active Dr. Thomas Hollis MD Attending Provider Active Team Status: Active Member Role Status Dates Dr. Donta Sweet MD Primary Care Provider Active Rayne Escobar BUILDING AND CONSTRUCTION MANAGER, BUILDING AND CONSTRUCTION MANAGER-C Attending Provider Active Team Status: Inactive Member Role Status Dates Dr. Donta Sweet MD Attending Provider Active Donta CAIN MD Primary Care Provider Active Team Status: Inactive Member Role Status Dates Dr. Thomas Hollis MD Attending Provider, Referring Pro vider Active Dr. Donta Sweet MD Primary Care Provider Active Team Status: Inactive Member Role Status Dates Dnota CAIN MD Referring Provider Active Lori Pittman Active Dr. Donta Sweet MD Primary Care Provider Active Dr. Thomas Hollis MD Attending Provider Active Team Status: Inactive Member Role Status Dates Donta CAIN MD Referring Provider Active Rayne Escobar BUILDING AND CONSTRUCTION MANAGER, BUILDING AND CONSTRUCTION MANAGER-C Attending Provider Active Dr. Donta Sweet MD Primary Care Provider Active Team Status: Inactive Member Role Status Dates Dr. Donta Sweet MD Primary Care Provider Active Dr. Thomas Hollis MD Attending Provider Active Team Status: Inactive Member Role Status Dates Dr. Donta Sweet MD Primary Care Provider Active Rayne Escobar BUILDING AND CONSTRUCTION MANAGER, BUILDING AND CONSTRUCTION MANAGER-C Attending Provider, Referring P isa Active Team Status: Active Member Role Status Dates Dr. Donta Sweet MD Primary Care Provi sarah, Attending Provider, Referring Provider Active Team Status: Inactive Member Role Status Dates Dr. Donta Sweet MD Primary Care Provi sarah, Attending Provider, Referring Provider Active Team Status: Active Member Role Status Dates Dr. Donta Sweet MD Primary Care Provider, Attending Provider Active Team Status: Inactive Member Role Status Dates Dr. Donta Sweet MD Primary Care Provider, Referring Provider Active Rayne Escobar BUILDING AND CONSTRUCTION MANAGER, BUILDING AND CONSTRUCTION MANAGER-C Attending Provider Active Team Status: Active Member Role/Relationship Status Dates Dr. Donta Sweet MD Family Provider Active Dr. Donta Sweet MD Primary Care Provider Active Team Status: Inactive Member Role/Relationship Status Dates Dr. Donta Sweet MD Primary Care Provider Active Start: July 20, 2024 End: July 20, 2024 Dr. Thomas Hollis MD Attending Provider Active S tart: July 20, 2024 End: July 20, 2024 Team Status: Inactive Member Role/Relationship Status Dates Dr. Donta Sweet MD Primary Care Provider Active Start: September 01, 2024 End: September 01, 2024 Dr. Donta Sweet MD Referring Provider Active Start: September 01, 2024 End: September 01, 2024 Britta PAGAN, PA Attending Provider Active Start: September 01, 2024 End: September 01, 2024 Team Status: Inactive Member Role/Relationship Status Dates Dr. Donta Sweet MD Primary Care Provider Active Start: October 19, 2024 End: October 19, 2024 Dr. Thomas Hollis MD Attending Provider Active S tart: October 19, 2024 End: October 19, 2024 Team Status: Inactive Member Role/Relationship Status Dates Dr. Donta Sweet MD Primary Care Provider Active Start: September 01, 2024 End: September 01, 2024 Dr. Donta Sweet MD Referring Provider Active Start: September 01, 2024 End: September 01, 2024 Britta PAGAN, PA Attending Provider Active Start: September 01, 2024 End: September 01, 2024 Team Status: Inactive Member Role/Relationship Status Dates Dr. Donta Sweet MD Primary Care Provider Active Start: October 19, 2024 End: October 19, 2024 Dr. Thomas Hollis MD Attending Provider Active S tart: October 19, 2024 End: October 19, 2024 Team Status: Inactive Member Role/Relationship Status Dates Dr. Donta Sweet MD Primary Care Provider Active Start: December 05, 2024 End: December 05, 2024 Dr. Donta Sweet MD Attending Provider Active Start: December 05, 2024 End: December 05, 2024 Dr. Donta Sweet MD Referring Provider Active Start: December 05, 2024 End: December 05, 2024 Britta Richmond PA, PA Other Provider Active Start: December 05, 2024 End: December 05, 2024 Team Status: Inactive Member Role/Relationship Status Dates Dr. Donta Sweet MD Primary Care Provider Active Start: December 12, 2024 End: December 12, 2024 Dr. Donta Sweet MD Attending Provider Active Start: December 12, 2024 End: December 12, 2024 Team Status: Active Member Role/Relationship Status Dates Dr. Donta Sweet MD Primary care physician Active Team Status: Inactive Member Role/Relationship Status Dates Dr. Donta Sweet MD Primary care physician Active Start: October 19, 2024 End: October 19, 2024 Dr. Thomas Hollis MD Attending physician Active Start: October 19, 2024 End: October 19, 2024 Team Status: Inactive Member Role/Relationship Status Dates Dr. Donta Sweet MD Primary care physician Active Start: December 05, 2024 End: December 05, 2024 Dr. Donta Sweet MD Attending physician Active Start: December 05, 2024 End: December 05, 2024 Dr. Donta Sweet MD Referring Provider Active Start: December 05, 2024 End: December 05, 2024 Britta Richmond PA, PA Nurse Practitioner Active Start: December 05, 2024 End: December 05, 2024 Team Status: Inactive Member Role/Relationship Status Dates Dr. Donta Sweet MD Primary care physician Active Start: December 12, 2024 End: December 12, 2024 Dr. Donta Sweet MD Attending physician Active Start: December 12, 2024 End: December 12, 2024 Team Status: Inactive Member Role/Relationship Status Dates Dr. Donta Sweet MD Primary care physician Active Start: January 18, 2025 End: January 18, 2025 Dr. Thomas Hollis MD Attending physician Active Start: January 18, 2025 End: January 18, 2025 Goals (unrecognized section and content) Goals may be documented in a n alternate sectionGoals may be documented in an alternate sectionGoals may be documented in an alternate sectionGoals may be documented in an alternate sectionGoals may be documented in an alternate sectionGoals may be documented in an alternate sectionGoals may be documented in an alternate sectionGoals may be documented in an alternate sectionGoals may be documented in an alternate sectionGoals may be documented in an alternate sectionGoals may be documented in an alternate sectionGoals may be documented in an alternate sectionGoals may be documented in an alternate sectionGoals may be documented in an alternate section INFORMATION SOURCE (unrecogn ized section and content) DATE CREATED AUTHOR 01/30/2025 [place] FOR RECORDS PERTAINING TO PATIENTS WHO ARE OR HAVE BEEN ENROLLED IN A CHEMICAL DEPENDENCY/SUBSTANCEABUSE PROGRAM, SOME INFORMATION MAY BE OMITTED. This clinical summary was aggregated from multiple sources. Caution should be exercised in using it in the provision of clinical care. This summary normalizes information from multiple sources, and as a consequence, information in this document may materially change the coding, format and clinical context of patient data. In addition, data may be omitted in some cases. CLINICAL DECISIONS SHOULD BE BASED ON THE PRIMARY CLINICAL RECORDS. [employer] [facility] [employer] [facility]. provides no warranty or guarantee of the accuracy or completeness of information in this document.
== END | disposition home or self-care (01) ==
LOC: POLAB3 10:28
PROVIDERS: PCP Family Medicine Geriatric Medicine; Visit Provider Family Medicine Geriatric Medicine
DX: N39.0 Urinary tract infection, site not specified (principal)
CPT/HCPCS: 87077; 87086; 87088; 87186

== ENCOUNTER → 2025-04-06 | Outpatient (CLI) | payer MEDICARE, SELFPAY ==
--- NOTE | 2025-04-06 07:33 | ECHOCS_ITS ---
Reason For Study Reason For Study: Murmur Procedure This was a 2D Doppler, Color Flow transthoracic echocardiogram. The patient is in sinus rhythm. The study was technically difficult. Contrast injection was performed. Exam performed in department. Left Ventricle Normal LV size. The left ventricular ejection fraction is 35 %. Moderately severe segmental systolic dysfunction (see wall motion). Mid-Inferior: Akinetic. [place] : Hypokinetic. Septal [place] : Hypokinetic. Posterior-Basal: Normal. Mid- Posterior: Hypokinetic. Right Ventricle Normal RV size. ICD or pacer leads identified within the right ventricle. Normal systolic function. Atria Normal left atrium. Normal right atrium. Mitral Valve Normal mitral valve. Mild (1+) eccentric mitral valve insufficiency. Tricuspid Valve Normal tricuspid valve. Mild-Moderate (1-2+) tricuspid valve insufficiency. Aortic Valve Trisinus/trileaflet aortic valve. Moderate focal aortic valve thickening. Pulmonic Valve Normal pulmonic valve. Great Vessels Normal aortic root. The pulmonary artery is normal size. Inferior vena cava collapse with respiration. Pericardium/Pleural No pericardial effusion. Medication 22 gauge I.V. with prn adaptor inserted into right arm. Diluted definity 1ml given slow IV push to enhance endocardial definition. MMode/2D Measurements & Calculations LVIDd: 5.2 cm IVSd: 0.94 cm LVOT diam: 2.0 cm LVIDs: 4.3 cm LVPWd: 0.86 cm RVDd: 3.3 cm FS: 18.0 % LVOT area: 3.1 cm2 Ao root diam: 3.4 cm asc Aorta Diam: 3.7 cm LAV(MOD- bp): 40.4 ml LAV(MOD- bp) Indexed: 24.2 ml/m2 LAV(MOD- sp2): 25.1 ml LAV(MOD- sp4): 38.3 ml SV(MOD-sp4): 48.9 ml SV(sp4- el): 49.7 ml LVAd ap4: 34.6 cm2 LVLd ap4: 8.0 cm SI(MOD-sp4): 29.3 ml/m2 EDV(MOD-sp4): 123.2 ml EDV(sp4-el): 127.1 ml LVAs ap4: 25.3 cm2 LVLs ap4: 7.0 cm ESV(MOD-sp4): 74.2 ml ESV(sp4-el): 77.4 ml EF(MOD-sp4): 39.7 % EF(sp4-el): 39.1 % LA A4 area: 16.0 cm2 LA dimension(2D): 3.8 cm RA A4 area: 10.0 cm2 TAPSE: 1.5 cm Time Measurements MV dec time: 0.22 sec Doppler Measurements & Calculations MV E max marques: 64.4 cm/sec Lat Peak E' Marques: 9.4 cm/sec Med Peak E' Marques: 5.4 cm/sec MV A max marques: 95.6 cm/sec E/E' lat: 6.8 E/E' med: 12.0 MV E/A: 0.67 MV V2 max: 111.1 cm/sec MV P1/2t max marques: 77.2 cm/sec Ao V2 max: 165.0 cm/sec MV max P.9 mmHg MV P1/2t: 72.2 msec Ao max P.9 mmHg MV V2 mean: 62.8 cm/sec MV dec slope: 313.2 cm/sec2 Ao V2 mean: 118.1 cm/sec MV mean P.9 mmHg MVA(P1/2t): 3.0 cm2 Ao mean P.3 mmHg MV V2 VTI: 20.3 cm Ao V2 VTI: 36.8 cm MVA(VTI): 2.9 cm2 AV (velocity ratio): 0.52 AICHA(I,D): 1.6 cm2 AICHA(V,D): 1.7 cm2 LV V1 max: 91.2 cm/sec MR max marques: 407.7 cm/sec SV(LVOT): 58.8 ml LV V1 max P.3 mmHg MR max P.5 mmHg LV V1 mean P.0 mmHg LV V1 mean: 67.2 cm/sec LV V1 VTI: 19.0 cm PA V2 max: 93.5 cm/sec TR max marques: 284.9 cm/sec TR max P.5 mmHg ECHO/Echo Complete W/ Contrast Interpretation Summary The left ventricular ejection fraction is 35 %. Normal LV size. Moderately severe segmental systolic dysfunction (see wall motion). Mild-Moderate (1-2+) tricuspid valve insufficiency. Contrast injection was performed. Ordering Physician: Britta Richmond Referring Physician: Britta Richmond Performed By: Saulo Johnson RCS
--- OUTSIDE RECORDS SUMMARY | 2025-04-06 07:52 | XMS RPT_ITS | CCD ---
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 Donta Sweet Chi Primary Care Provider Juliocesar RN Natalie Attending Provider Unavail able Dr. Donta Sweet Chi Referring Provider Dr. Thomas Hollis Attending Provider [phone]([phone] MD Donta Koo Chi Primary Care Provider Unava jimmy Escobar SLUBBER RUNNER, SLUBBER RUNNER-C Rayne Attending Provider Dr. Donta Sweet Chi Primary Care Provider [phone]([facility])[phone] Dr. Thomas Hollis Attending Provider MD Donta Koo Chi Referring Provider Dr. Donta Ryan Chi Primary Care Provider Dr. Thomas Hollis Attending Provider [phone] MD Donta Koo Chi Referring Provider Nba Escobar SLUBBER RUNNER, SLUBBER RUNNER-C Rayne Attending Provider Dr. Donta Sweet Chi Primary Care Provider Dr. Thomas Hollis Attending Provider [phone] Shawn SLUBBER RUNNER, SLUBBER RUNNER-C Rayne Attending Provider Dr. Donta Sweet Chi Referring Provider [phone] Donta Sweet MD, Chi Primary Care Provider [phone] Dr. Thomas Hollis MD Attending Provider Dr. Donta Sweet MD, Chi Referring Provider Britta Sandra Attending Provider [phone] Dr. Donta Sweet MD, Chi Primary Care Provider Dr. Thomas Hollis MD Attending Provider Shira WEEKS, Dr. Donta Lin Attending Provider Britta Sandra Other Provider [phone] Shira WEEKS, Dr. Donta Lin Primary Care Physician [phone] Telma WEEKS, Dr. Guzman Attending Physician Shira WEEKS, Dr. Donta Lin Attending Physician Shira WEEKS, Dr. Donta Lin Referring Provider Britta Sandra Nurse Practitioner Shira, Donta Chi Referring Unavailable Shira, Donta Chi Primary Care Unavailable Rayne Escobar Attending Unavailable Shira, Donta Chi Primary Care [...] Attending Unavailable Shira, Donta Chi Referring Unavailable Telma, Thomas Attending Unavailable Shira, Donta Chi Primary Care Unavailable Telma, Thomas Attending Unavailable Shira, Donta Chi Primary Care Unavailable Shira, Donta Chi Referring Unavailable Britta Sandra Attending Unavail able Shira, Donta Chi Primary Care Unavailable Shira, Donta Chi Primary Care Unavailable Telma, Thomas Attending Unavailable Shira, Donta Chi Primary Care Unavailable Shira, Donta Chi Attending Unavailable Allergies Allergy Classification Reported Allergen(s) Allergy Type Date of Onset Reaction(s) Facility (13 sources) carvedilol Drug Allergy 02-20-2023 Diarrhea [facility] (14 sources) ESTrogens, conj synthetic; Translations: [ESTrogens, conj synthetic] Allergy to substance 01-21-2023 unknown [facility] (1 source) carvedilol Drug Allergy 09-01-2024 [facility] Repository Medications Current Medications Medication Drug Class(es) [...] .COMPLEX 60 0 September 05, 2024 1:57pm October 20, 2024 9:58am 1 TAB orally TWICE DAILY: this [...] {tbl} PO TWICE A DAY 180 3 March 23, 2024 12:57pm September 01, 2024 [...] 25 mg PO TWICE A DAY 60 3 January 21, 2023 12:00am February 20, 2023 [...] Coronary atherosclerosis; Translations: [Atherosclerotic heart disease of habematolel coronary artery without angina pectoris] 12-23-2022 Chronic Diabetes mellitus with complications (2 sources) Type 2 diabetes mellitus with hyperglycemia; Translations: [Type 2 diabetes mellitus with hyperglycemia] Onset: 12-16-2024 Chronic Diabetes mellitus without complication (13 sources) [...] source) Hypothyroidism, unspecified; Translations: [Hypothyroidism, unspecified] Onset: 03-08-2025 Chronic Urinary tract infections (1 source) Urinary tract infection, site not specified; Translations: [Urinary tract infection, site not specified] Onset: 03-09-2025 Episodic Past or Other Problems Problem Classification Problem Date Documented Da te Episodic/Chronic Coronary atherosclerosis and other heart disease (6 sources) Presence of coronary angioplasty implant and graft; Translations: [Percutaneous transluminal coronary angioplasty status] Onset: 11-25-2022 01-21-2023 Episodic Results Test Name Value Interpretation Reference Range Facility CBC W/Diff, Automatedon 02-25 Absolute Lymph 1.67 X10 3/uL Normal 0.83-4.51 [facility] Comment on above: Performed By: #### L 500.4100, L501.9520, L501.9985, L100.0100, L500.4050 ####[facility] [address] [place], [address] Absolute Neut 4.4 X10 3/uL Normal 2.0-7.7 [facility] Comment on above: Performed By: #### L 500.4100, L501.9520, L501.9985, L100.0100, L500.4050 ####[facility] [address] [place], [address] Basophils/100 WBC (Bld) 0.4 % Normal 0-1 [facility] Comment on above: Performed By: #### L 500.4100, L501.9520, L501.9985, L100.0100, L500.4050 ####[facility] [address] [place], [address] Eosinophils/100 WBC (Bld) 4.8 % Normal 0-5 [facility] Comment on above: Performed By: #### L 500.4100, L501.9520, L501.9985, L100.0100, L500.4050 ####[facility] [address] [place], [address] Erythrocyte distribution width (RBC) [Ratio] 15.9 % High 11.6-14.6 [facility] Comment on above: Performed By: #### L 500.4100, L501.9520, L501.9985, L100.0100, L500.4050 ####[facility] [address] [place], [address] Hematocrit (Bld) [Volume fraction] 38.3 % Normal 37-47 [facility] Comment on above: Performed By: #### L 500.4100, L501.9520, L501.9985, L100.0100, L500.4050 ####[facility] [address] [place], [address] Hemoglobin (Bld) [Mass/Vol] 12.1 g/dL Normal 12.0-15.0 [facility] Comment on above: Performed By: #### L 500.4100, L501.9520, L501.9985, L100.0100, L500.4050 ####[facility] [address] [place], [address] IG% 0.400 Normal 0.0-0.9 [facility] Comment on above: Result Comment: IG% - Immature Granulocytes (promyelocytes, myelocytes and metamyelocytes) > 1% indicates that a LEFT SHIFT is Present. Performed By: #### L 500.4100, L501.9520, L501.9985, L100.0100, L500.4050 ####[facility] [address] [place], [address] Lymphocytes/100 WBC (Bld) 24.1 % Normal 19-41 [facility] Comment on above: Performed By: #### L 500.4100, L501.9520, L501.9985, L100.0100, L500.4050 ####[facility] [address] [place], [address] MCH (RBC) [Entitic mass] 26.8 pg Low 27.0-32.0 [facility] Comment on above: Performed By: #### L 500.4100, L501.9520, L501.9985, L100.0100, L500.4050 ####[facility] [address] [place], [address] MCHC (RBC) [Mass/Vol] 31.6 g/dL Low 32-36 [facility] Comment on above: Performed By: #### L 500.4100, L501.9520, L501.9985, L100.0100, L500.4050 ####[facility] [address] [place], [address] MCV (RBC) [Entitic vol] 84.7 fL Normal 81-99 [facility] Comment on above: Performed By: #### L 500.4100, L501.9520, L501.9985, L100.0100, L500.4050 ####[facility] [address] [place], [address] Monocytes/100 WBC (Bld) 7.5 % Normal 0-10 [facility] Comment on above: Performed By: #### L 500.4100, L501.9520, L501.9985, L100.0100, L500.4050 ####[facility] [address] [place], [address] Neutrophils/100 WBC (Bld) 62.8 % Normal 47-70 [facility] Comment on above: Performed By: #### L 500.4100, L501.9520, L501.9985, L100.0100, L500.4050 ####[facility] [address] [place], [address] Nucleated RBC (Bld) [#/Vol] 0 10*3/uL Normal 0-5 [facility] Comment on above: Performed By: #### L 500.4100, L501.9520, L501.9985, L100.0100, L500.4050 ####[facility] [address] [place], [address] Platelet mean volume (Bld) [Entitic vol] 11.0 fL Normal 6.2-12.0 [facility] Comment on above: Performed By: #### L 500.4100, L501.9520, L501.9985, L100.0100, L500.4050 ####[facility] [address] [place], [address] Platelets (Bld) [#/Vol] 228 10*3/uL Normal 150-450 [facility] Comment on above: Performed By: #### L 500.4100, L501.9520, L501.9985, L100.0100, L500.4050 ####[facility] [address] [place], [address] RBC (Bld) [#/Vol] 4.52 10*6/uL Normal 4.2-5.4 [facility] Comment on above: Performed By: #### L 500.4100, L501.9520, L501.9985, L100.0100, L500.4050 ####[facility] [address] [place], [address] RDW SD 48.6 fl High 35.1-43.9 [facility] Comment on above: Performed By: #### L 500.4100, L501.9520, L501.9985, L100.0100, L500.4050 ####[facility] [address] [place], [address] WBC (Bld) [#/Vol] 6.9 10*3/uL Normal 4.4-11.0 [facility] Comment on above: Performed By: #### L 500.4100, L501.9520, L501.9985, L100.0100, L500.4050 ####[facility] [address] [place], [address] Comprehensive Metabolic Prof cton 03-08-2025 Albumin [Mass/Vol] 4.6 g/dL Normal 3.4-4.8 [facility] Comment on above: Performed By: #### L 500.4100, L501.9520, L501.9985, L100.0100, L500.4050 ####[facility] [address] [place], [address] Albumin/Globulin [Mass ratio] 1.2 {ratio} Normal 0.9-2.4 [facility] Comment on above: Performed By: #### L 500.4100, L501.9520, L501.9985, L100.0100, L500.4050 ####[facility] [address] [place], [address] ALK PHOS 90 U/L Normal 35-104 [facility] Comment on above: Performed By: #### L 500.4100, L501.9520, L501.9985, L100.0100, L500.4050 ####[facility] [address] [place], [address] ALT [Catalytic activity/Vol] 26 U/L Normal <=34 [facility] Comment on above: Performed By: #### L 500.4100, L501.9520, L501.9985, L100.0100, L500.4050 ####[facility] [address] [place], [address] AST [Catalytic activity/Vol] 38 U/L High <=31 [facility] Comment on above: Performed By: #### L 500.4100, L501.9520, L501.9985, L100.0100, L500.4050 ####[facility] [address] [place], [address] Bilirubin [Mass/Vol] 0.40 mg/dL Normal 0.00-1.30 [facility] Comment on above: Performed By: #### L 500.4100, L501.9520, L501.9985, L100.0100, L500.4050 ####[facility] [address] [place], [address] BUN/CRE 28.3 RATIO High 10-20 [facility] Comment on above: Performed By: #### L 500.4100, L501.9520, L501.9985, L100.0100, L500.4050 ####[facility] [address] [place], [address] Calcium [Mass/Vol] 9.9 mg/dL Normal 7.6-11.0 [facility] Comment on above: Performed By: #### L 500.4100, L501.9520, L501.9985, L100.0100, L500.4050 ####[facility] [address] [place], [address] Chloride [Moles/Vol] 107 mmol/L Normal 98-108 [facility] Comment on above: Performed By: #### L 500.4100, L501.9520, L501.9985, L100.0100, L500.4050 ####[facility] [address] [place], [address] CO2 [Moles/Vol] 18.1 mmol/L Low 21.0-32.0 [facility] Comment on above: Performed By: #### L 500.4100, L501.9520, L501.9985, L100.0100, L500.4050 ####[facility] [address] [place], [address] Creatinine [Mass/Vol] 1.27 mg/dL High 0.70-1.20 [facility] Comment on above: Performed By: #### L 500.4100, L501.9520, L501.9985, L100.0100, L500.4050 ####[facility] [address] [place], [address] GAP 12 Normal 5-15 [facility] Comment on above: Performed By: #### L 500.4100, L501.9520, L501.9985, L100.0100, L500.4050 ####[facility] [address] [place], [address] GFR/1.73 sq M.predicted among non-blacks MDRD (S/P/Bld) [Vol rate/Area] 45 mL/min/{1.73_m2} Low >60 [facility] Comment on above: Result Comment: mL/m in/1.73m2 CKD-EPI Creatinine Equation (2020) Performed By: #### L 500.4100, L501.9520, L501.9985, L100.0100, L500.4050 ####[facility] [address] [place], [address] Globulin (S) [Mass/Vol] 3.7 g/dL Normal 2.2-4.2 [facility] Comment on above: Performed By: #### L 500.4100, L501.9520, L501.9985, L100.0100, L500.4050 ####[facility] [address] [place], [address] Glucose [Mass/Vol] 170 mg/dL High 70-99 [facility] Comment on above: Performed By: #### L 500.4100, L501.9520, L501.9985, L100.0100, L500.4050 ####[facility] [address] [place], [address] Potassium [Moles/Vol] 4.9 mmol/L Normal 3.3-5.1 [facility] Comment on above: Performed By: #### L 500.4100, L501.9520, L501.9985, L100.0100, L500.4050 ####[facility] [address] [place], [address] Sodium [Moles/Vol] 137 mmol/L Normal 133-145 [facility] Comment on above: Performed By: #### L 500.4100, L501.9520, L501.9985, L100.0100, L500.4050 ####[facility] [address] [place], [address] T PROT 8.2 g/dL Normal 5.9-8.4 [facility] Comment on above: Performed By: #### L 500.4100, L501.9520, L501.9985, L100.0100, L500.4050 ####[facility] [address] [place], [address] Urea nitrogen [Mass/Vol] 36 mg/dL High 4-19 [facility] Comment on above: Performed By: #### L 500.4100, L501.9520, L501.9985, L100.0100, L500.4050 ####[facility] [address] [place], [address] Hemoglobin A1con 03-08-2025 HbA1c (Bld) [Mass fraction] 7.9 % High <=5.6 [facility] Comment on above: Result Comment: Norm al < 5.7 % Prediabetic 5.7 - 6.4 % Diabetic >or= 6.5 % Please note range changes. Performed By: #### L 500.4100, L501.9520, L501.9985, L100.0100, L500.4050 ####[facility] [address] [place], [address] Lipid Profileon 03-08-2025 CHOL:HDL 2.89 Normal [facility] Comment on above: Performed By: #### L 500.4100, L501.9520, L501.9985, L100.0100, L500.4050 ####[facility] [address] [place], [address] Cholesterol [Mass/Vol] 123 mg/dL Normal <=200 [facility] Comment on above: Result Comment: Chol esterol level, Desirable <200 mg/dL Borderline high cholesterol 200-239 mg/dL High cholesterol >=240 mg/dL Recommendations of the NCEP Adult Treatment Panel for the following risk-cutoff thresholds for the [place] population. Performed By: #### L 500.4100, L501.9520, L501.9985, L100.0100, L500.4050 ####[facility] [address] [place], [address] Cholesterol in HDL [Mass/Vol] 43 mg/dL Normal [facility] Comment on above: Result Comment: Margot onal Cholesterol Education Program (NCEP) guidelines: <40 mg/dL: Low HDL-cholesterol (major risk factor for CHD) >= 60 mg/dL: High HDL-cholesterol (negative risk factor for CHD) HDL-cholesterol is affected by a number of factors, e.g. smoking, exercise, hormones, sex and age. Performed By: #### L 500.4100, L501.9520, L501.9985, L100.0100, L500.4050 ####[facility] [address] [place], [address] Cholesterol in LDL [Mass/Vol] 57 mg/dL Normal [facility] Comment on above: Result Comment: Bord wsrnuk=428-859 mg/dL Higher Kyak=546 mg/dL or greater Colmenares Equation 2020 for LDL-C Performed By: #### L 500.4100, L501.9520, L501.9985, L100.0100, L500.4050 ####[facility] [address] [place], [address] Cholesterol in VLDL [Mass/Vol] 26 mg/dL Normal 5-40 [facility] Comment on above: Performed By: #### L 500.4100, L501.9520, L501.9985, L100.0100, L500.4050 ####[facility] [address] [place], [address] Triglyceride [Mass/Vol] 131 mg/dL Normal [facility] Comment on above: Result Comment: The drugs N-Acetylcysteine and Metamizole may falsely depress this assay. Normal range: <150 mg/dL Borderline High: 150-199 mg/dL High: 200-499 mg/dL Very High: >500 mg/dL Performed By: #### L 500.4100, L501.9520, L501.9985, L100.0100, L500.4050 ####[facility] [address] [place], [place], [address] Thyroid Stim Hormone (TSH)on 03-08-2025 TSH 1.470 uIU/mL Normal 0.300-4.200 [facility] Comment on above: Performed By: #### L 500.4100, L501.9520, L501.9985, L100.0100, L500.4050 ####[facility] [address] [place], [place], [address] Absolute lymphocyte countOrd ered By: Donta Shira on 12-12-2024 Lymphocytes Auto (Unsp spec) [#/Vol] 1.51 10*3/uL 0.83-4.51 [facility] Absolute neutrophil countOrd ered By: Donta Sweet on 12-12-2024 Neutrophils (Bld) [#/Vol] 5.4 10*3/uL 2.0-7.7 [facility] Automated lymphocyte count a s percentage of total leukocytesOrdered By: Donta Sweet on 12-12-2024 Lymphocytes/100 WBC Auto (Unsp spec) 18.6 % Low 19-41 [facility] Basophil percentageOrdered B y: Donta Sweet on 12-12-2024 Basophils/100 WBC (Bld) 0.6 % 0-1 [facility] CBC W/Diff, Automatedon 08 8-2025 Absolute Lymph 1.51 X10 3/uL Normal 0.83-4.51 [facility] Comment on above: Performed By: #### L 100.0100 #### [facility] [address] [place], [address] Absolute Neut 5.4 X10 3/uL Normal 2.0-7.7 [facility] Comment on above: Performed By: #### L 100.0100 #### [facility] [address] [place], [address] Basophils/100 WBC (Bld) 0.6 % Normal 0-1 [facility] Comment on above: Performed By: #### L 100.0100 #### [facility] [address] [place], [address] Eosinophils/100 WBC (Bld) 6.1 % High 0-5 [facility] Comment on above: Performed By: #### L 100.0100 #### [facility] [address] [place], [address] Erythrocyte distribution width (RBC) [Ratio] 16.4 % High 11.6-14.6 [facility] Comment on above: Performed By: #### L 100.0100 #### [facility] [address] [place], [address] Hematocrit (Bld) [Volume fraction] 36.1 % Low 37-47 [facility] Comment on above: Performed By: #### L 100.0100 #### [facility] [address] [place], [address] Hemoglobin (Bld) [Mass/Vol] 11.4 g/dL Low 12.0-15.0 [facility] Comment on above: Performed By: #### L 100.0100 #### [facility] [address] [place], [address] IG% 0.500 Normal 0.0-0.9 [facility] Comment on above: Result Comment: IG% - Immature Granulocytes (promyelocytes, myelocytes and metamyelocytes) > 1% indicates that a LEFT SHIFT is Present. Performed By: #### L 100.0100 #### [facility] [address] [place], [address] Lymphocytes/100 WBC (Bld) 18.6 % Low 19-41 [facility] Comment on above: Performed By: #### L 100.0100 #### [facility] [address] [place], [address] MCH (RBC) [Entitic mass] 27.7 pg Normal 27.0-32.0 [facility] Comment on above: Performed By: #### L 100.0100 #### [facility] [address] [place], [address] MCHC (RBC) [Mass/Vol] 31.6 g/dL Low 32-36 [facility] Comment on above: Performed By: #### L 100.0100 #### [facility] [address] [place], [address] MCV (RBC) [Entitic vol] 87.8 fL Normal 81-99 [facility] Comment on above: Performed By: #### L 100.0100 #### [facility] [address] [place], [address] Monocytes/100 WBC (Bld) 8.4 % Normal 0-10 [facility] Comment on above: Performed By: #### L 100.0100 #### [facility] [address] [place], [address] Neutrophils/100 WBC (Bld) 65.8 % Normal 47-70 [facility] Comment on above: Performed By: #### L 100.0100 #### [facility] [address] [place], [address] Nucleated RBC (Bld) [#/Vol] 0 10*3/uL Normal 0-5 [facility] Comment on above: Performed By: #### L 100.0100 #### [facility] [address] [place], [address] Platelet mean volume (Bld) [Entitic vol] 10.7 fL Normal 6.2-12.0 [facility] Comment on above: Performed By: #### L 100.0100 #### [facility] [address] [place], [address] Platelets (Bld) [#/Vol] 244 10*3/uL Normal 150-450 [facility] Comment on above: Performed By: #### L 100.0100 #### [facility] [address] [place], [address] RBC (Bld) [#/Vol] 4.11 10*6/uL Low 4.2-5.4 [facility] Comment on above: Performed By: #### L 100.0100 #### [facility] [address] [place], [address] RDW SD 52.7 fl High 35.1-43.9 [facility] Comment on above: Performed By: #### L 100.0100 #### [facility] [address] [place], [address] WBC (Bld) [#/Vol] 8.1 10*3/uL Normal 4.4-11.0 [facility] Comment on above: Performed By: #### L 100.0100 #### [facility] [address] [place], [address] Eosinophil percentageOrdered By: Dotna Sweet on 12-12-2024 Eosinophils/100 WBC (Bld) 6.1 % High 0-5 [facility] Erythrocyte distribution wid th ratioOrdered By: Donta Sweet on 12-12-2024 Erythrocyte distribution width (RBC) [Ratio] 16.4 % High 11.6-14.6 [facility] Erythrocyte distribution wid th standard deviationOrdered By: Donta Shira on 12-12-2024 Erythrocyte distribution width (RBC) [Ratio] 52.7 fl High 35.1-43.9 [facility] Hematocrit Auto (Bld) [Volum e fraction]Ordered By: Donta Shira12-12-2024 Hematocrit (Bld) [Volume fraction] 36.1 % Low 37-47 [facility] Hemoglobin measurementOrdere d By: Donta Shira 12-12-2024 Hemoglobin (Bld) [Mass/Vol] 11.4 g/dL Low 12.0-15.0 [facility] Immature granulocytes/100 WB C Auto (Bld)[facility] By[facility] Immature granulocytes/100 WBC (Bld) 0.500 % 0.0-0.9 [facility] Comment on above: IG% - Immature Granu locytes (promyelocytes, myelocytes and metamyelocytes) > 1% indicates that a LEFT SHIFT is Present. MCV (mean corpuscular volume ) determinationOrdered By: Donta Sweet 12-12-2024 MCV (RBC) [Entitic vol] 87.8 fL 81-99 [facility] Mean corpuscular hemoglobin (MCH) determinationOrdered By: [facility] MCH (RBC) [Entitic mass] 27.7 pg 27.0-32.0 [facility] Mean corpuscular hemoglobin concentration (MCHC) determinationOrdered By: Donta Pope12-12-2024 MCHC (RBC) [Mass/Vol] 31.6 g/dL Low 32-36 [facility] Mean platelet volume determi nationOrdered By: [facility] 12-12-2024 Platelet mean volume (Bld) [Entitic vol] 10.7 fL 6.2-12.0 [facility] Monocyte percentageOrdered B y: Donta Pope12-12-2024 Monocytes/100 WBC (Bld) 8.4 % 0-10 [facility] Neutrophil percentageOrdered By: Donta Sweet 12-12-2024 Neutrophils/100 WBC (Bld) 65.8 % 47-70 [facility] Nucleated red blood cell per centageOrdered By: Donta Sweet on 12-12-2024 Nucleated RBC/100 WBC (Bld) [Ratio] 0 % 0-5 [facility] Platelet countOrdered By: Luis Angel Sweet on 12-12-2024 Platelets (Bld) [#/Vol] 244 10*3/uL 150-450 [facility] RBC Auto (Bld) [#/Vol]Ordere d By: Donta Sweet on 12-12-2024 RBC (Bld) [#/Vol] 4.11 10*6/uL Low 4.2-5.4 [facility] White blood cell (WBC) count Ordered By: Donta Sweet on 12-12-2024 WBC (Bld) [#/Vol] 8.1 10*3/uL 4.4-11.0 [facility] Absolute lymphocyte countOrd ered By: Donta Sweet on 12-05-2024 Lymphocytes Auto (Unsp spec) [#/Vol] 1.57 10*3/uL 0.83-4.51 [facility] Absolute neutrophil countOrd ered By: Donta Sweet on 12-05-2024 Neutrophils (Bld) [#/Vol] 7.2 10*3/uL 2.0-7.7 [facility] Anion gap in Serum or Plasma Ordered By: Donta Sweet on 12-05-2024 Anion gap [Moles/Vol] 14 mmol/L 5-15 [facility] Automated lymphocyte count a s percentage of total leukocytesOrdered By: Donta Sweet on 12-05-2024 Lymphocytes/100 WBC Auto (Unsp spec) 15.9 % Low 19-41 [facility] BUN/creatinine ratioOrdered By: Donta Sweet on 12-05-2024 Urea nitrogen/Creatinine [Mass ratio] 28.6 mg/mg High - [facility] Basic Metabolic Profile (BMP )on 12-05-2024 BUN Normal 4- [facility] Comment on above: Result Comment: OVER LAPS CMP Performed By: #### L 500.2500 ####[facility] [address] [place], [address] BUN/CRE Normal 10-20 [facility] Comment on above: Result Comment: OVER LAPS CMP Performed By: #### L 500.2500 ####[facility] [address] [place], [address] Calcium Normal 7.6-11.0 [facility] Comment on above: Result Comment: OVER LAPS CMP Performed By: #### L 500.2500 ####[facility] [address] [place], [address] CL Normal 98-108 [facility] Comment on above: Result Comment: OVER LAPS CMP Performed By: #### L 500.2500 ####[facility] [address] [place], [address] CO2 Normal 21.0-32.0 [facility] Comment on above: Result Comment: OVER LAPS CMP Performed By: #### L 500.2500 ####[facility] [address] [place], [address] CREAT,SERUM Normal 0.70-1.20 [facility] Comment on above: Result Comment: OVER LAPS CMP Performed By: #### L 500.2500 ####[facility] [address] [place], [address] eGFR Normal >60 [facility] Comment on above: Result Comment: OVER LAPS CMP Performed By: #### L 500.2500 ####[facility] [address] [place], [address] GAP Normal 5-15 [facility] Comment on above: Result Comment: OVER LAPS CMP Performed By: #### L 500.2500 ####[facility] [address] [place], [address] GLU Normal 70-99 [facility] Comment on above: Result Comment: OVER LAPS CMP Performed By: #### L 500.2500 ####[facility] [address] [place], [address] Potassium Normal 3.3-5.1 [facility] Comment on above: Result Comment: OVER LAPS CMP Performed By: #### L 500.2500 ####[facility] [address] [place], [address] Basic Metabolic Profile (BMP) Normal 133-145 [facility] Comment on above: Result Comment: OVER LAPS CMP Performed By: #### L 500.2500 ####[facility] [address] [place], [address] Basophil percentageOrdered B y: Donta Shira on 12-05-2024 Basophils/100 WBC (Bld) 0.4 % 0-1 [facility] Bilirubin, totalOrdered By: Donta Popeok on 12-05-2024 Bilirubin [Mass/Vol] 0.50 mg/dL 0.00-1.30 [facility] CBC W/Diff, Automatedon 11-25 Absolute Lymph 1.57 X10 3/uL Normal 0.83-4.51 [facility] Comment on above: Performed By: #### L 100.0100, L501.9520, L500.4100, L501.9985, L500.4050, L502.0250, L506.1001 ####[facility] [address] [place], [address] Absolute Neut 7.2 X10 3/uL Normal 2.0-7.7 [facility] Comment on above: Performed By: #### L 100.0100, L501.9520, L500.4100, L501.9985, L500.4050, L502.0250, L506.1001 ####[facility] [address] [place], [address] Basophils/100 WBC (Bld) 0.4 % Normal 0-1 [facility] Comment on above: Performed By: #### L 100.0100, L501.9520, L500.4100, L501.9985, L500.4050, L502.0250, L506.1001 ####[facility] [address] [place], [address] Eosinophils/100 WBC (Bld) 3.9 % Normal 0-5 [facility] Comment on above: Performed By: #### L 100.0100, L501.9520, L500.4100, L501.9985, L500.4050, L502.0250, L506.1001 ####[facility] [address] [place], [address] Erythrocyte distribution width (RBC) [Ratio] 16.2 % High 11.6-14.6 [facility] Comment on above: Performed By: #### L 100.0100, L501.9520, L500.4100, L501.9985, L500.4050, L502.0250, L506.1001 ####[facility] [address] [place], [address] Hematocrit (Bld) [Volume fraction] 35.1 % Low 37-47 [facility] Comment on above: Performed By: #### L 100.0100, L501.9520, L500.4100, L501.9985, L500.4050, L502.0250, L506.1001 ####[facility] [address] [place], [address] Hemoglobin (Bld) [Mass/Vol] 11.1 g/dL Low 12.0-15.0 [facility] Comment on above: Performed By: #### L 100.0100, L501.9520, L500.4100, L501.9985, L500.4050, L502.0250, L506.1001 ####[facility] [address] [place], [address] IG% 0.200 Normal 0.0-0.9 [facility] Comment on above: Result Comment: IG% - Immature Granulocytes (promyelocytes, myelocytes and metamyelocytes) > 1% indicates that a LEFT SHIFT is Present. Performed By: #### L 100.0100, L501.9520, L500.4100, L501.9985, L500.4050, L502.0250, L506.1001 ####[facility] [address] [place], [address] Lymphocytes/100 WBC (Bld) 15.9 % Low 19-41 [facility] Comment on above: Performed By: #### L 100.0100, L501.9520, L500.4100, L501.9985, L500.4050, L502.0250, L506.1001 ####[facility] [address] [place], [address] MCH (RBC) [Entitic mass] 27.9 pg Normal 27.0-32.0 [facility] Comment on above: Performed By: #### L 100.0100, L501.9520, L500.4100, L501.9985, L500.4050, L502.0250, L506.1001 ####[facility] [address] [place], [address] MCHC (RBC) [Mass/Vol] 31.6 g/dL Low 32-36 [facility] Comment on above: Performed By: #### L 100.0100, L501.9520, L500.4100, L501.9985, L500.4050, L502.0250, L506.1001 ####[facility] [address] [place], [address] MCV (RBC) [Entitic vol] 88.2 fL Normal 81-99 [facility] Comment on above: Performed By: #### L 100.0100, L501.9520, L500.4100, L501.9985, L500.4050, L502.0250, L506.1001 ####[facility] [address] [place], [address] Monocytes/100 WBC (Bld) 6.9 % Normal 0-10 [facility] Comment on above: Performed By: #### L 100.0100, L501.9520, L500.4100, L501.9985, L500.4050, L502.0250, L506.1001 ####[facility] [address] [place], [address] Neutrophils/100 WBC (Bld) 72.7 % High 47-70 [facility] Comment on above: Performed By: #### L 100.0100, L501.9520, L500.4100, L501.9985, L500.4050, L502.0250, L506.1001 ####[facility] [address] [place], [address] Nucleated RBC (Bld) [#/Vol] 0 10*3/uL Normal 0-5 [facility] Comment on above: Performed By: #### L 100.0100, L501.9520, L500.4100, L501.9985, L500.4050, L502.0250, L506.1001 ####[facility] [address] [place], [address] Platelet mean volume (Bld) [Entitic vol] 11.2 fL Normal 6.2-12.0 [facility] Comment on above: Performed By: #### L 100.0100, L501.9520, L500.4100, L501.9985, L500.4050, L502.0250, L506.1001 ####[facility] [address] [place], [address] Platelets (Bld) [#/Vol] 231 10*3/uL Normal 150-450 [facility] Comment on above: Performed By: #### L 100.0100, L501.9520, L500.4100, L501.9985, L500.4050, L502.0250, L506.1001 ####[facility] [address] [place], [address] RBC (Bld) [#/Vol] 3.98 10*6/uL Low 4.2-5.4 [facility] Comment on above: Performed By: #### L 100.0100, L501.9520, L500.4100, L501.9985, L500.4050, L502.0250, L506.1001 ####[facility] [address] [place], [address] RDW SD 52.6 fl High 35.1-43.9 [facility] Comment on above: Performed By: #### L 100.0100, L501.9520, L500.4100, L501.9985, L500.4050, L502.0250, L506.1001 ####[facility] [address] [place], [address] WBC (Bld) [#/Vol] 9.9 10*3/uL Normal 4.4-11.0 [facility] Comment on above: Performed By: #### L 100.0100, L501.9520, L500.4100, L501.9985, L500.4050, L502.0250, L506.1001 ####[facility] [address] [place], [address] Calculated very low density lipoprotein (VLDL) cholesterol measurementOrdered By: Donta Sweet on 12-05-2024 Calculated very low density lipoprotein (VLDL) cholesterol measurement 19 mg/dL 5-40 [facility] Carbon dioxide, total [Moles /volume] in Central venous bloodOrdered By: Donta Sweet on 12-05-2024 CO2 [Moles/Vol] 16.3 mmol/L Low 21.0-32.0 [facility] Chloride assayOrdered By: Luis Angel Sweet on 12-05-2024 Chloride [Moles/Vol] 103 mmol/L 98-108 [facility] Comprehensive Metabolic Prof ilon 12-05-2024 Albumin [Mass/Vol] 4.3 g/dL Normal 3.4-4.8 [facility] Comment on above: Order Comment: SEND BMP TO SLUBBER RUNNER.MMCCONNELL Performed By: #### L 100.0100, L501.9520, L500.4100, L501.9985, L500.4050, L502.0250, L506.1001 ####[facility] [address] [place], [address] Albumin/Globulin [Mass ratio] 1.2 {ratio} Normal 0.9-2.4 [facility] Comment on above: Order Comment: SEND BMP TO SLUBBER RUNNER.MMCCONNELL Performed By: #### L 100.0100, L501.9520, L500.4100, L501.9985, L500.4050, L502.0250, L506.1001 ####[facility] [address] [place], [place], [address] ALK PHOS 98 U/L Normal 35-104 [facility] Comment on above: Order Comment: SEND BMP TO SLUBBER RUNNER.MMCCONNELL Performed By: #### L 100.0100, L501.9520, L500.4100, L501.9985, L500.4050, L502.0250, L506.1001 ####[facility] [address] [place], [address] ALT [Catalytic activity/Vol] 30 U/L Normal <=34 [facility] Comment on above: Order Comment: SEND BMP TO SLUBBER RUNNER.MMCCONNELL Performed By: #### L 100.0100, L501.9520, L500.4100, L501.9985, L500.4050, L502.0250, L506.1001 ####[facility] [address] [place], [place], [id number] AST [Catalytic activity/Vol] 39 U/L High <=31 [facility] Comment on above: Order Comment: SEND BMP TO SLUBBER RUNNER.MMCCONNELL Performed By: #### L 100.0100, L501.9520, L500.4100, L501.9985, L500.4050, L502.0250, L506.1001 ####[facility] [address] [place], [address] Bilirubin [Mass/Vol] 0.50 mg/dL Normal 0.00-1.30 [facility] Comment on above: Order Comment: SEND BMP TO SLUBBER RUNNER.MMCCONNELL Performed By: #### L 100.0100, L501.9520, L500.4100, L501.9985, L500.4050, L502.0250, L506.1001 ####[facility] [address] [place], [address] BUN/CRE 28.6 RATIO High 10-20 [facility] Comment on above: Order Comment: SEND BMP TO SLUBBER RUNNER.MMCCONNELL Performed By: #### L 100.0100, L501.9520, L500.4100, L501.9985, L500.4050, L502.0250, L506.1001 ####[facility] [address] [place], [address] Calcium [Mass/Vol] 9.9 mg/dL Normal 7.6-11.0 [facility] Comment on above: Order Comment: SEND BMP TO SLUBBER RUNNER.MMCCONNELL Performed By: #### L 100.0100, L501.9520, L500.4100, L501.9985, L500.4050, L502.0250, L506.1001 ####[facility] [address] [place], [address] Chloride [Moles/Vol] 103 mmol/L Normal 98-108 [facility] Comment on above: Order Comment: SEND BMP TO SLUBBER RUNNER.MMCCONNELL Performed By: #### L 100.0100, L501.9520, L500.4100, L501.9985, L500.4050, L502.0250, L506.1001 ####[facility] [address] [place], [address] CO2 [Moles/Vol] 16.3 mmol/L Low 21.0-32.0 [facility] Comment on above: Order Comment: SEND BMP TO SLUBBER RUNNER.MMCCONNELL Performed By: #### L 100.0100, L501.9520, L500.4100, L501.9985, L500.4050, L502.0250, L506.1001 ####[facility] [address], [address] Creatinine [Mass/Vol] 1.29 mg/dL High 0.70-1.20 [facility] Comment on above: Order Comment: SEND BMP TO SLUBBER RUNNER.MMCCONNELL Performed By: #### L 100.0100, L501.9520, L500.4100, L501.9985, L500.4050, L502.0250, L506.1001 ####[facility] [address] [place], [place], [id number] GAP 14 Normal 5-15 [facility] Comment on above: Order Comment: SEND BMP TO SLUBBER RUNNER.MMCCONNELL Performed By: #### L 100.0100, L501.9520, L500.4100, L501.9985, L500.4050, L502.0250, L506.1001 ####[facility] [address] [place], [place], [address] GFR/1.73 sq M.predicted among non-blacks MDRD (S/P/Bld) [Vol rate/Area] 45 mL/min/{1.73_m2} Low >60 [facility] Comment on above: Order Comment: SEND BMP TO SLUBBER RUNNER.MMCCONNELL Result Comment: mL/m in/1.73m2 CKD-EPI Creatinine Equation (2020) Performed By: #### L 100.0100, L501.9520, L500.4100, L501.9985, L500.4050, L502.0250, L506.1001 ####[facility] [address] [place], [address] Globulin (S) [Mass/Vol] 3.6 g/dL Normal 2.2-4.2 [facility] Comment on above: Order Comment: SEND BMP TO SLUBBER RUNNER.MMCCONNELL Performed By: #### L 100.0100, L501.9520, L500.4100, L501.9985, L500.4050, L502.0250, L506.1001 ####[facility] [address] [place], [address] Glucose [Mass/Vol] 135 mg/dL High 70-99 [facility] Comment on above: Order Comment: SEND BMP TO SLUBBER RUNNER.MMCCONNELL Performed By: #### L 100.0100, L501.9520, L500.4100, L501.9985, L500.4050, L502.0250, L506.1001 ####[facility] [address] [place], [address] Potassium [Moles/Vol] 4.8 mmol/L Normal 3.3-5.1 [facility] Comment on above: Order Comment: SEND BMP TO SLUBBER RUNNER.MMCCONNELL Performed By: #### L 100.0100, L501.9520, L500.4100, L501.9985, L500.4050, L502.0250, L506.1001 ####[facility] [address] [place], [place], [id number] Sodium [Moles/Vol] 134 mmol/L Normal 133-145 [facility] Comment on above: Order Comment: SEND BMP TO SLUBBER RUNNER.MMCCONNELL Performed By: #### L 100.0100, L501.9520, L500.4100, L501.9985, L500.4050, L502.0250, L506.1001 ####[facility] [address] [place], [address] T PROT 7.9 g/dL Normal 5.9-8.4 [facility] Comment on above: Order Comment: SEND BMP TO SLUBBER RUNNER.MMCCONNELL Performed By: #### L 100.0100, L501.9520, L500.4100, L501.9985, L500.4050, L502.0250, L506.1001 ####[facility] [address] [place], [address] Urea nitrogen [Mass/Vol] 37 mg/dL High 4-19 [facility] Comment on above: Order Comment: SEND BMP TO SLUBBER RUNNER.MMCCONNELL Performed By: #### L 100.0100, L501.9520, L500.4100, L501.9985, L500.4050, L502.0250, L506.1001 ####[facility] [address] [place], [address] Eosinophil percentageOrdered By: Donta Sweet on 12-05-2024 Eosinophils/100 WBC (Bld) 3.9 % 0-5 [facility] Erythrocyte distribution wid th ratioOrdered By: Donta Sweet on 12-05-2024 Erythrocyte distribution width (RBC) [Ratio] 16.2 % High 11.6-14.6 [facility] Erythrocyte distribution wid th standard deviationOrdered By: Donta Shira on 12-05-2024 Erythrocyte distribution width (RBC) [Ratio] 52.6 fl High 35.1-43.9 [facility] Glomerular filtration rate ( GFR) estimation/1.73 sq m using serum, plasma, or whole bOrdered By: Donta Sweet on 12-05-2024 GFR/1.73 sq M.predicted among non-blacks MDRD (S/P/Bld) [Vol rate/Area] 45 mL/min/{1.73_m2} Low >60 [facility] Comment on above: mL/min/1.73m2 CKD-EP I Creatinine Equation (2020) Hematocrit Auto (Bld) [Volum e fraction]Ordered By: Donta Sweet on 12-05-2024 Hematocrit (Bld) [Volume fraction] 35.1 % Low 37-47 [facility] Hemoglobin A1con 12-05-2024 HbA1c (Bld) [Mass fraction] 9.0 % High <=5.6 [facility] Comment on above: Result Comment: Norm al < 5.7 % Prediabetic 5.7 - 6.4 % Diabetic >or= 6.5 % Please note range changes. Performed By: #### L 100.0100, L501.9520, L500.4100, L501.9985, L500.4050, L502.0250, L506.1001 ####[facility] [address] [place], [address] Hemoglobin A1c percentageOrd ered By: Donta Sweet on 12-05-2024 HbA1c (Bld) [Mass fraction] 9.0 % High <5.7 [facility] Comment on above: Normal < 5.7 % Predi abetic 5.7 - 6.4 % Diabetic >or= 6.5 % Please note range changes. Hemoglobin measurementOrdere d By: Donta Sweet on 12-05-2024 Hemoglobin (Bld) [Mass/Vol] 11.1 g/dL Low 12.0-15.0 [facility] Immature granulocytes/100 WB C Auto (Bld)Ordered By: Donta Sweet on 12-05-2024 Immature granulocytes/100 WBC (Bld) 0.200 % 0.0-0.9 [facility] Comment on above: IG% - Immature Granu locytes (promyelocytes, myelocytes and metamyelocytes) > 1% indicates that a LEFT SHIFT is Present. LDL calc ser/plasOrdered By: Donta Sweet on 12-05-2024 Cholesterol in LDL [Mass/Vol] 27 mg/dL [facility] Comment on above: Rahkqazsvf=569-432 m g/dL & Higher Pwdj=133 mg/dL or greaterFriedwald Equation for LDL-C Laboratory - Chemistry and C hemistry - challengeOrdered By: Donta Sweet on 12-05-2024 AST [Catalytic activity/Vol] 39 U/L High <32 [facility] Lipid Profileon 12-05-2024 CHOL:HDL 2.08 Normal [facility] Comment on above: Order Comment: SEND BMP TO SLUBBER RUNNER.DEJA Performed By: #### L 100.0100, L501.9520, L500.4100, L501.9985, L500.4050, L502.0250, L506.1001 ####[facility] [address] [place], [address] Cholesterol [Mass/Vol] 89 mg/dL Normal <=200 [facility] Comment on above: Order Comment: SEND BMP TO SLUBBER RUNNER.MMCCONMARILYN Result Comment: Chol esterol level, Desirable <200 mg/dL Borderline high cholesterol 200-239 mg/dL High cholesterol >=240 mg/dL Recommendations of the NCEP Adult Treatment Panel for the following risk-cutoff thresholds for the [place] population. Performed By: #### L 100.0100, L501.9520, L500.4100, L501.9985, L500.4050, L502.0250, L506.1001 ####[facility] [address] [place], [address] Cholesterol in HDL [Mass/Vol] 43 mg/dL Normal [facility] Comment on above: Order Comment: SEND BMP TO SLUBBER RUNNER.MMCCONMARILYN Result Comment: Margot onal Cholesterol Education Program (NCEP) guidelines: <40 mg/dL: Low HDL-cholesterol (major risk factor for CHD) >= 60 mg/dL: High HDL-cholesterol (negative risk factor for CHD) HDL-cholesterol is affected by a number of factors, e.g. smoking, exercise, hormones, sex and age. Performed By: #### L 100.0100, L501.9520, L500.4100, L501.9985, L500.4050, L502.0250, L506.1001 ####[facility] [address] [place], [address] Cholesterol in LDL [Mass/Vol] 27 mg/dL Normal [facility] Comment on above: Order Comment: SEND BMP TO SLUBBER RUNNER.MMCCONNELL Result Comment: Bord xcbqbr=058-860 mg/dL Higher Xsel=648 mg/dL or greater Friedwald Equation for LDL-C Performed By: #### L 100.0100, L501.9520, L500.4100, L501.9985, L500.4050, L502.0250, L506.1001 ####[facility] [address] [place], [place], [id number] Cholesterol in VLDL [Mass/Vol] 19 mg/dL Normal 5-40 [facility] Comment on above: Order Comment: SEND BMP TO SLUBBER RUNNER.MMCCONNELL Performed By: #### L 100.0100, L501.9520, L500.4100, L501.9985, L500.4050, L502.0250, L506.1001 ####[facility] [address] [place], [address] Triglyceride [Mass/Vol] 95 mg/dL Normal [facility] Comment on above: Order Comment: SEND BMP TO [facility]MMCCONNELL Result Comment: The drugs N-Acetylcysteine and Metamizole may falsely depress this assay. Normal range: <150 mg/dL Borderline High: 150-199 mg/dL High: 200-499 mg/dL Very High: >500 mg/dL Performed By: #### L 100.0100, L501.9520, L500.4100, L501.9985, L500.4050, L502.0250, L506.1001 ####[facility] [address] [place], [place], [id number] MCV (mean corpuscular volume ) determinationOrdered By: Donta Sweet on 12-05-2024 MCV (RBC) [Entitic vol] 88.2 fL 81-99 [facility] Mean corpuscular hemoglobin (MCH) determinationOrdered By: Donta Sweet on 12-05-2024 MCH (RBC) [Entitic mass] 27.9 pg 27.0-32.0 [facility] Mean corpuscular hemoglobin concentration (MCHC) determinationOrdered By: Donta Sweet on 12-05-2024 MCHC (RBC) [Mass/Vol] 31.6 g/dL Low 32-36 [facility] Mean platelet volume determi nationOrdered By: Donta Sweet on 12-05-2024 Platelet mean volume (Bld) [Entitic vol] 11.2 fL 6.2-12.0 [facility] Microalb:Creat Ratio,Random URon 12-05-2024 MALB:CREAT 110.8 mg/g CRE High <30 mg/g CRE [facility] Comment on above: Performed By: #### L 100.0100, L501.9520, L500.4100, L501.9985, L500.4050, L502.0250, L506.1001 ####[facility] [address] [place], [place], [id number] MICROALBUMIN,UR 54.2 mg/L Normal <20 mg/L [facility] Comment on above: Performed By: #### L 100.0100, L501.9520, L500.4100, L501.9985, L500.4050, L502.0250, L506.1001 ####[facility] [address] [place], [place], [id number] Monocyte percentageOrdered B y: Donta Sweet on 12-05-2024 Monocytes/100 WBC (Bld) 6.9 % 0-10 [facility] Neutrophil percentageOrdered By: Donta Sweet on 12-05-2024 Neutrophils/100 WBC (Bld) 72.7 % High 47-70 [facility] Nucleated red blood cell per centageOrdered By: Donta Sweet on 12-05-2024 Nucleated RBC/100 WBC (Bld) [Ratio] 0 % 0-5 [facility] Platelet countOrdered By: Luis Angel Sweet on 12-05-2024 Platelets (Bld) [#/Vol] 231 10*3/uL 150-450 [facility] Potassium measurement (mass/ volume)Ordered By: Donta Sweet on 12-05-2024 Potassium (Unsp spec) [Mass/Vol] 4.8 mmol/L 3.3-5.1 [facility] RBC Auto (Bld) [#/Vol]Ordere d By: Donta Sweet on 12-05-2024 RBC (Bld) [#/Vol] 3.98 10*6/uL Low 4.2-5.4 [facility] Random urine creatinine stacey urement (mass/volume)Ordered By: Donta Sweet on 12-05-2024 Creatinine Unsp time (U) [Mass/Vol] 48.90 mg/dL 28.00-217.00 [facility] Screening total cholesterol/ high density lipoprotein (HDL) cholesterol ratioOrdered By: Donta Sweet on 12-05-2024 Cholesterol.total/Choles terol in HDL [Mass ratio] 2.08 {ratio} [facility] Serum creatinine measurement (mass/volume)Ordered By: Donta Sweet on 12-05-2024 Creatinine [Mass/Vol] 1.29 mg/dL High 0.70-1.20 [facility] Serum globulin measurementOr dered By: Donta Sweet 12-05-2024 Globulin (S) [Mass/Vol] 3.6 g/dL 2.2-4.2 [facility] Serum glucose measurement (m ass/volume)Ordered By: Donta Sweet 12-05-2024 Glucose [Mass/Vol] 135 mg/dL High 70-99 [facility] Serum or plasma alanine jose otransferase (ALT) measurementOrdered By: Donta Sweet 12-05-2024 ALT [Catalytic activity/Vol] 30 U/L <35 [facility] Serum or plasma albumin stacey urement (mass/volume)Ordered By: Donta Sweet 12-05-2024 Albumin [Mass/Vol] 4.3 g/dL 3.4-4.8 [facility] Serum or plasma albumin/glob ulin mass ratioOrdered By: Donta Sweet 12-05-2024 Albumin/Globulin [Mass ratio] 1.2 {ratio} 0.9-2.4 [facility] Serum or plasma alkaline arianna sphatase measurementOrdered By: Donta Sweet 12-05-2024 ALP [Catalytic activity/Vol] 98 U/L 35-104 [facility] Serum or plasma calcium stacey urement (mass/volume)Ordered By: Donta Sweet 12-05-2024 Calcium [Mass/Vol] 9.9 mg/dL 7.6-11.0 [facility] Serum or plasma cholesterol in HDL measurement (mass/volume)Ordered By: Donta Sweet on 12-05-2024 Cholesterol in HDL [Mass/Vol] 43 mg/dL >40 [facility] Comment on above: National Cholesterol Education Program (NCEP) guidelines:<40 mg/dL: Low HDL-cholesterol (major risk factor for CHD)>= 60 mg/dL: High HDL-cholesterol (negative risk factor for CHD)HDL-cholesterol is affected by a number of factors, e.g. smoking, exercise, hormones, sex and age. Serum or plasma cholesterol measurement (mass/volume)Ordered By: Donta Sweet on 12-05-2024 Cholesterol [Mass/Vol] 89 mg/dL <201 [facility] Comment on above: Cholesterol level, D esirable <200 mg/dLBorderline high cholesterol 200-239 mg/dLHigh cholesterol >=240 mg/dLRecommendations of the NCEP Adult Treatment Panel for the following risk-cutoff thresholds for the [place] Vincentian population. Serum or plasma urea nitroge n measurement (mass/volume)Ordered By: Donta Sweet on 12-05-2024 Urea nitrogen [Mass/Vol] 37 mg/dL High 4-19 [facility] Sodium levelOrdered By: Donta Sweet on 12-05-2024 Sodium [Moles/Vol] 134 mmol/L 133-145 [facility] TSH DL <= 0.005 mIU/L QnOrde red By: Donta Sweet on 12-05-2024 TSH Qn 1.440 uIU/mL 0.300-4.200 [facility] Thyroid Stim Hormone (TSH)on 12-05-2024 TSH 1.440 uIU/mL Normal 0.300-4.200 [facility] Comment on above: Order Comment: SEND BMP TO AMIE Performed By: #### L 100.0100, L501.9520, L500.4100, L501.9985, L500.4050, L502.0250, L506.1001 ####[facility] [address] [place], [address] Total proteinOrdered By: Donta Sweet on 12-05-2024 Protein [Mass/Vol] 7.9 g/dL 5.9-8.4 [facility] Triglycerides measurementOrd ered By: Donta Sweet on 12-05-2024 Triglyceride [Mass/Vol] 95 mg/dL <199 [facility] Comment on above: The drugs N-Acetylcy steine and Metamizole may falsely depress this assay. Normal range: <150 mg/dLBorderline High: 150-199 mg/dLHigh: 200-499 mg/dLVery High: >500 mg/dL Urine albumin measurement wi detection limit of 20 mg/L or less (mass/volume)Ordered By: Donta Sweet on 12-05-2024 Albumin DL <= 20 mg/L (U) [Mass/Vol] 54.2 mg/L <20 mg/L [facility] Vitamin D,25 Hydroxyon 12-05 Vitamin D 25-OH 39.4 ng/mL Normal 30-100 [facility] Comment on above: Order Comment: SEND BMP TO [facility]MMCCONNELL Result Comment: Karyn min D Status Deficiency: <20 ng/mL (50nmol/L) Insufficiency: 20-30 ng/mL (50-75 nmol/L) Sufficiency: 30-100 ng/mL (75-250 nmol/L) Toxicity: >100 ng/mL (>250 nmol/L) Performed By: #### L 100.0100, L501.9520, L500.4100, L501.9985, L500.4050, L502.0250, L506.1001 ####[facility] [address] [place], [place], [address] White blood cell (WBC) count Ordered By: Donta Sweet on 12-05-2024 WBC (Bld) [#/Vol] 9.9 10*3/uL 4.4-11.0 [facility] Cardiology Visit Reporton Cardiology Visit Report [facility] [address] [place], [place] [id number] OFFICE VISIT Date of Service: 09/01/24 MR#: [id number] Acct: [id number] Name: MARION ROTHMAN Rep #: [id number] : 1955 Provider: EJ Christian Age/Sex: 69/F Location: [facility] [place] Status: Signed HPI HPI History of Present Illness Details: This is pleasant 69-year-old lady who presents to the office today for a cardiovascular follow-up visit. She was [place]ing [place] the [place] in [place] and suffered a witnessed cardiac arrest. 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 Normal [facility] Hemoglobin A1con 06-05-2024 HbA1c (Bld) [Mass fraction] 7.7 % High 3.8-5.6 [facility] Comment on above: Result Comment: Norm al < 5.7 % Prediabetic 5.7 - 6.4 % Diabetic >or= 6.5 % Please note range changes. Performed By: #### L 100.0100, L500.4100, L501.9985, M100.678, L506.1000, L501.9520, L500.4050 #### [facility] [address] [place], [address] CBC W/Diff, Automatedon 02- Absolute Lymph 0.82 X10 3/uL Low 0.83-4.51 [facility] Comment on above: Performed By: #### L 100.0100, L500.4100, L501.9985, M100.678, L506.1000, L501.9520, L500.4050 #### [facility] [address] [place], [address] Absolute Neut 5.5 X10 3/uL Normal 2.0-7.7 [facility] Comment on above: Performed By: #### L 100.0100, L500.4100, L501.9985, M100.678, L506.1000, L501.9520, L500.4050 #### [facility] [address] [place], [address] Basophils/100 WBC (Bld) 0.4 % Normal 0-1 [facility] Comment on above: Performed By: #### L 100.0100, L500.4100, L501.9985, M100.678, L506.1000, L501.9520, L500.4050 #### [facility] [address] [place], [address] Eosinophils/100 WBC (Bld) 2.1 % Normal 0-5 [facility] Comment on above: Performed By: #### L 100.0100, L500.4100, L501.9985, M100.678, L506.1000, L501.9520, L500.4050 #### [facility] [address] [place], [address] Erythrocyte distribution width (RBC) [Ratio] 14.9 % High 11.6-14.6 [facility] Comment on above: Performed By: #### L 100.0100, L500.4100, L501.9985, M100.678, L506.1000, L501.9520, L500.4050 #### [facility] [address] [place], [address] Hematocrit (Bld) [Volume fraction] 42.6 % Normal 37-47 [facility] Comment on above: Performed By: #### L 100.0100, L500.4100, L501.9985, M100.678, L506.1000, L501.9520, L500.4050 #### [facility] [address] [place], [address] Hemoglobin (Bld) [Mass/Vol] 13.3 g/dL Normal 12.0-15.0 [facility] Comment on above: Performed By: #### L 100.0100, L500.4100, L501.9985, M100.678, L506.1000, L501.9520, L500.4050 #### [facility] [address] [place], [address] IG% 0.300 Normal 0.0-0.9 [facility] Comment on above: Result Comment: IG% - Immature Granulocytes (promyelocytes, myelocytes and metamyelocytes) > 1% indicates that a LEFT SHIFT is Present. Performed By: #### L 100.0100, L500.4100, L501.9985, M100.678, L506.1000, L501.9520, L500.4050 #### [facility] [address] [place], [address] Lymphocytes/100 WBC (Bld) 11.4 % Low 19-41 [facility] Comment on above: Performed By: #### L 100.0100, L500.4100, L501.9985, M100.678, L506.1000, L501.9520, L500.4050 #### [facility] [address] [place], [address] MCH (RBC) [Entitic mass] 28.4 pg Normal 27.0-32.0 [facility] Comment on above: Performed By: #### L 100.0100, L500.4100, L501.9985, M100.678, L506.1000, L501.9520, L500.4050 #### [facility] [address] [place], [address] MCHC (RBC) [Mass/Vol] 31.2 g/dL Low 32-36 [facility] Comment on above: Performed By: #### L 100.0100, L500.4100, L501.9985, M100.678, L506.1000, L501.9520, L500.4050 #### [facility] [address] [place], [address] MCV (RBC) [Entitic vol] 91.0 fL Normal 81-99 [facility] Comment on above: Performed By: #### L 100.0100, L500.4100, L501.9985, M100.678, L506.1000, L501.9520, L500.4050 #### [facility] [address] [place], [address] Monocytes/100 WBC (Bld) 9.4 % Normal 0-10 [facility] Comment on above: Performed By: #### L 100.0100, L500.4100, L501.9985, M100.678, L506.1000, L501.9520, L500.4050 #### [facility] [address] [place], [address] Neutrophils/100 WBC (Bld) 76.4 % High 47-70 [facility] Comment on above: Performed By: #### L 100.0100, L500.4100, L501.9985, M100.678, L506.1000, L501.9520, L500.4050 #### [facility] [address] [place], [address] Nucleated RBC (Bld) [#/Vol] 0 10*3/uL Normal 0-5 [facility] Comment on above: Performed By: #### L 100.0100, L500.4100, L501.9985, M100.678, L506.1000, L501.9520, L500.4050 #### [facility] [address] [place], [address] Platelet mean volume (Bld) [Entitic vol] 11.1 fL Normal 6.2-12.0 [facility] Comment on above: Performed By: #### L 100.0100, L500.4100, L501.9985, M100.678, L506.1000, L501.9520, L500.4050 #### [facility] [address] [place], [address] Platelets (Bld) [#/Vol] 171 10*3/uL Normal 150-450 [facility] Comment on above: Performed By: #### L 100.0100, L500.4100, L501.9985, M100.678, L506.1000, L501.9520, L500.4050 #### [facility] [address] [place], [address] RBC (Bld) [#/Vol] 4.68 10*6/uL Normal 4.2-5.4 [facility] Comment on above: Performed By: #### L 100.0100, L500.4100, L501.9985, M100.678, L506.1000, L501.9520, L500.4050 #### [facility] [address] [place], [address] RDW SD 49.3 fl High 35.1-43.9 [facility] Comment on above: Performed By: #### L 100.0100, L500.4100, L501.9985, M100.678, L506.1000, L501.9520, L500.4050 #### [facility] [address] [place], [address] WBC (Bld) [#/Vol] 7.2 10*3/uL Normal 4.4-11.0 [facility] Comment on above: Performed By: #### L 100.0100, L500.4100, L501.9985, M100.678, L506.1000, L501.9520, L500.4050 #### [facility] [address] [place], [address] Comprehensive Metabolic Prof ilon 06-03-2024 Albumin [Mass/Vol] 3.8 g/dL Normal 3.2-5.0 [facility] Comment on above: Performed By: #### L 100.0100, L500.4100, L501.9985, M100.678, L506.1000, L501.9520, L500.4050 #### [facility] [address] [place], [address] Albumin/Globulin [Mass ratio] 0.8 {ratio} Low 0.9-2.4 [facility] Comment on above: Performed By: #### L 100.0100, L500.4100, L501.9985, M100.678, L506.1000, L501.9520, L500.4050 #### [facility] [address] [place], [address] ALK P 109 U/L Normal 45-117 [facility] Comment on above: Performed By: #### L 100.0100, L500.4100, L501.9985, M100.678, L506.1000, L501.9520, L500.4050 #### [facility] [address] [place], [address] ALT [Catalytic activity/Vol] 40 U/L Normal 13-56 [facility] Comment on above: Performed By: #### L 100.0100, L500.4100, L501.9985, M100.678, L506.1000, L501.9520, L500.4050 #### [facility] [address] [place], [address] AST [Catalytic activity/Vol] 46 U/L High 15-37 [facility] Comment on above: Performed By: #### L 100.0100, L500.4100, L501.9985, M100.678, L506.1000, L501.9520, L500.4050 #### [facility] [address] [place], [address] Bilirubin [Mass/Vol] 0.70 mg/dL Normal 0.20-1.00 [facility] Comment on above: Result Comment: For patients on eltrombopag therapy, use of Dimension [place] TBIL is not recommended. Performed By: #### L 100.0100, L500.4100, L501.9985, M100.678, L506.1000, L501.9520, L500.4050 #### [facility] [address] [place], [address] BUN/CRE 15.8 RATIO Normal 10-20 [facility] Comment on above: Performed By: #### L 100.0100, L500.4100, L501.9985, M100.678, L506.1000, L501.9520, L500.4050 #### [facility] [address] [place], [address] CA,Total 9.6 mg/dL Normal 8.5-10.1 [facility] Comment on above: Performed By: #### L 100.0100, L500.4100, L501.9985, M100.678, L506.1000, L501.9520, L500.4050 #### [facility] [address] [place], [address] Chloride [Moles/Vol] 101 mmol/L Normal 98-107 [facility] Comment on above: Performed By: #### L 100.0100, L500.4100, L501.9985, M100.678, L506.1000, L501.9520, L500.4050 #### [facility] [address] [place], [address] CO2 [Moles/Vol] 22.0 mmol/L Normal 21.0-32.0 [facility] Comment on above: Performed By: #### L 100.0100, L500.4100, L501.9985, M100.678, L506.1000, L501.9520, L500.4050 #### [facility] [address] [place], [address] Creatinine [Mass/Vol] 1.33 mg/dL High 0.55-1.02 [facility] Comment on above: Result Comment: The validity of the calculated GFR GFRAA in patients over 70 years has not been determined. Clinical correlation is essential. Performed By: #### L 100.0100, L500.4100, L501.9985, M100.678, L506.1000, L501.9520, L500.4050 #### [facility] [address] [place], [address] EST GFR - AA 51 mL/min Low >60 [facility] Comment on above: Result Comment: Afri can Vincentian GFR Calc Performed By: #### L 100.0100, L500.4100, L501.9985, M100.678, L506.1000, L501.9520, L500.4050 #### [facility] [address] [place], [address] GAP 11 Normal 5-15 [facility] Comment on above: Performed By: #### L 100.0100, L500.4100, L501.9985, M100.678, L506.1000, L501.9520, L500.4050 #### [facility] [address] [place], [address] GFR/1.73 sq M.predicted among non-blacks MDRD (S/P/Bld) [Vol rate/Area] 42 mL/min/{1.73_m2} Low >60 [facility] Comment on above: Result Comment: Non- GFR Calc Performed By: #### L 100.0100, L500.4100, L501.9985, M100.678, L506.1000, L501.9520, L500.4050 #### [facility] [address] [place], [address] Globulin (S) [Mass/Vol] 4.5 g/dL High 2.2-4.2 [facility] Comment on above: Performed By: #### L 100.0100, L500.4100, L501.9985, M100.678, L506.1000, L501.9520, L500.4050 #### [facility] [address] [place], [address] Glucose [Mass/Vol] 182 mg/dL High 74-106 [facility] Comment on above: Result Comment: Fast ing Glucose result greater than or equal to 126 mg/dL suggests DIABETES MELLITUS per A.D.A. criteria. Performed By: #### L 100.0100, L500.4100, L501.9985, M100.678, L506.1000, L501.9520, L500.4050 #### [facility] [address] [place], [address] Potassium [Moles/Vol] 4.3 mmol/L Normal 3.5-5.1 [facility] Comment on above: Performed By: #### L 100.0100, L500.4100, L501.9985, M100.678, L506.1000, L501.9520, L500.4050 #### [facility] [address] [place], [address] Sodium [Moles/Vol] 134 mmol/L Low 136-145 [facility] Comment on above: Performed By: #### L 100.0100, L500.4100, L501.9985, M100.678, L506.1000, L501.9520, L500.4050 #### [facility] [address] [place], [address] T PROT 8.3 g/dL High 6.4-8.2 [facility] Comment on above: Performed By: #### L 100.0100, L500.4100, L501.9985, M100.678, L506.1000, L501.9520, L500.4050 #### [facility] [address] [place], [address] Urea nitrogen [Mass/Vol] 21 mg/dL High 7-18 [facility] Comment on above: Performed By: #### L 100.0100, L500.4100, L501.9985, M100.678, L506.1000, L501.9520, L500.4050 #### [facility] [address] [place], [address] Lipid Profileon 06-03-2024 Cholesterol [Mass/Vol] 88 mg/dL Normal 200 [facility] Comment on above: Result Comment: <200 mg/dL Desirable 200-240 mg/dL Borderline >240 mg/dL High Risk Performed By: #### L 100.0100, L500.4100, L501.9985, M100.678, L506.1000, L501.9520, L500.4050 #### [facility] [address] [place], [address] Cholesterol in HDL [Mass/Vol] 44 mg/dL Normal [facility] Comment on above: Result Comment: The drugs N-Acetylcysteine and Metamizole may falsely depress this assay. Reference Range HDL <40 mg/dL Low HDL Cholesterol HDL >or= 60 mg/dL High HDL Cholesterol Performed By: #### L 100.0100, L500.4100, L501.9985, M100.678, L506.1000, L501.9520, L500.4050 #### [facility] [address] [place], [address] Cholesterol in LDL [Mass/Vol] 23 mg/dL Normal 0-130 [facility] Comment on above: Performed By: #### L 100.0100, L500.4100, L501.9985, M100.678, L506.1000, L501.9520, L500.4050 #### [facility] [address] [place], [address] Cholesterol in VLDL [Mass/Vol] 21 mg/dL Normal 5-40 [facility] Comment on above: Performed By: #### L 100.0100, L500.4100, L501.9985, M100.678, L506.1000, L501.9520, L500.4050 #### [facility] [address] [place], [address] Triglyceride [Mass/Vol] 104 mg/dL Normal [facility] Comment on above: Result Comment: The drugs N-Acetylcysteine and Metamizole may falsely depress this assay. Serum Triglycerides Reference Interval Normal <150 mg/dL Borderline high 150 - 199 mg/dL High 200 - 499 mg/dL Very High > or = 500 mg/dL Performed By: #### L 100.0100, L500.4100, L501.9985, M100.678, L506.1000, L501.9520, L500.4050 #### [facility] [address] [place], [address] M100.678on 06-03-2024 M100.678 Results called on 06/03/244 by ANTONIA to ([phone]. Copy of report sent to Infection Control Printer [id number] 06/03/24 [employer]. FLUABV+SARS-CoV-2+RSV Pnl Resp GABRIEL+probe Normal Reference Range = Negative GeneXpert Instrument, PCR method SARS-CoV-2 (COVID 19) Negative INFLUENZA A A Positive A INFLUENZA B Negative RSV PCR Negative INFLUENZAE A Normal [facility] Comment on above: Performed By: #### L 100.0100, L500.4100, L501.9985, M100.678, L506.1000, L501.9520, L500.4050 #### [facility] [address] [place], [address] Thyroid Stim Hormone (TSH)on 06-03-2024 TSH 0.585 uIU/mL Normal 0.358-3.740 [facility] Comment on above: Performed By: #### L 100.0100, L500.4100, L501.9985, M100.678, L506.1000, L501.9520, L500.4050 #### [facility] [address] [place], [address] Vitamin D,25 Hydroxyon 06-03 Vitamin D 25-OH 36.3 ng/mL Normal [facility] Comment on above: Result Comment: Karyn min D 25(OH) Status Range Deficiency <20 ng/mL (50nmol/L) Insufficiency 20 - 30 ng/mL (50 - 75 nmol/L) Sufficiency 30 - 100 ng/mL (75 - 250 nmol/L) Toxicity >100 ng/mL (>250 nmol/L) Performed By: #### L 100.0100, L500.4100, L501.9985, M100.678, L506.1000, L501.9520, L500.4050 #### [facility] [address] [place], [address] Cardiology Visit Reporton Cardiology Visit Report [facility] [address] [place] [address] OFFICE VISIT Date of Service: 03/21/24 MR#: [id number] Acct: [id number] Name: MARION ROTHMAN Rep #: [id number] : 1955 Provider: CASA seymour Age/Sex: 69/F Location: [facility] [place] Status: Signed HPI HPI History of Present Illness Details: This is pleasant 69-year-old lady who presents to the office today for a cardiovascular follow-up visit. [place] was [place] the [place] in [place] and suffered a witnessed cardiac arrest. 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 Normal [facility] Absolute lymphocyte countOrd ered By: Donta Sweet on 09-02-2023 Lymphocytes Auto (Unsp spec) [#/Vol] 1.53 10*3/uL 0.83-4.51 [facility] Automated lymphocyte count a s percentage of total leukocytesOrdered By: Donta Sweet on 09-02-2023 Lymphocytes/100 WBC Auto (Unsp spec) 17.6 % 19-41 [facility] Basophil percentageOrdered B y: Donta Sweet on 09-02-2023 Basophils/100 WBC (Bld) 0.7 % 0-1 [facility] Bilirubin [Mass/Vol] 0.50 mg/dL 0.20-1.00 [facility] Comment on above: For patients on eltr ombopag therapy, use of Dimension [place] TBIL is not recommended. Chloride [Moles/Vol] 110 mmol/L 98-107 [facility] Cholesterol [Mass/Vol] 209 mg/dL <200 [facility] Comment on above: <200 mg/dL Desirable 200-240 mg/dL Borderline >240 mg/dL High Risk Eosinophils/100 WBC (Bld) 4.5 % 0-5 [facility] Glucose [Mass/Vol] 125 mg/dL 74-106 [facility] Comment on above: Fasting Glucose resu lt from 100 to 125 mg/dL suggests IMPAIRED HOMEOSTASIS per A.D.A. criteria. Hemoglobin (Bld) [Mass/Vol] 12.7 g/dL 12.0-15.0 [facility] Monocytes/100 WBC (Bld) 6.5 % 0-10 [facility] Neutrophils (Bld) [#/Vol] 6.1 10*3/uL 2.0-7.7 [facility] Neutrophils/100 WBC (Bld) 70.2 % 47-70 [facility] Potassium [Moles/Vol] 4.9 mmol/L 3.5-5.1 [facility] Protein [Mass/Vol] 8.0 g/dL 6.4-8.2 [facility] Sodium [Moles/Vol] 137 mmol/L 136-145 [facility] Triglyceride [Mass/Vol] 166 mg/dL <199 [facility] Comment on above: The drugs N-Acetylcy steine and Metamizole may falsely depress this assay.Serum Triglycerides Reference Interval Normal <150 mg/dL Borderline high 150 - 199 mg/dL High 200 - 499 mg/dL Very High > or = 500 mg/dL WBC (Bld) [#/Vol] 8.7 10*3/uL 4.4-11.0 [facility] Determination of erythrocyte mean corpuscular volume (MCV)Ordered By: Donta Sweet on 09-02-2023 MCV (RBC) [Entitic vol] 93.2 fL 81-99 [facility] Erythrocyte distribution wid th ratioOrdered By: [facility] on 09-02-2023 Erythrocyte distribution width (RBC) [Ratio] 15.0 % 11.6-14.6 [facility] Erythrocyte distribution wid th standard deviationOrdered By: [facility] on 09-02-2023 Erythrocyte distribution width (RBC) [Entitic vol] 51.1 fL 35.1-43.9 [facility] Hematocrit Auto (Bld) [Volum e fraction]Ordered By: [facility] on 09-02-2023 Hematocrit (Bld) [Volume fraction] 39.6 % 37-47 [facility] Immature granulocytes/100 WB C Auto (Bld)Ordered By: [facility] on 09-02-2023 Immature granulocytes/100 WBC (Bld) 0.500 % 0.0-0.9 [facility] Comment on above: IG% - Immature Granu locytes (promyelocytes, myelocytes and metamyelocytes) > 1% indicates that a LEFT SHIFT is Present. Laboratory - Chemistry and C hemistry - challengeOrdered By: [facility] on 09-02-2023 Albumin/Globulin [Mass ratio] 1.0 {ratio} 0.9-2.4 [facility] ALP [Catalytic activity/Vol] 106 U/L 45-117 [facility] ALT [Catalytic activity/Vol] 23 U/L 13-56 [facility] Cholesterol in HDL [Mass/Vol] 49 mg/dL >40 [facility] Comment on above: The drugs N-Acetylcy steine and Metamizole may falsely depress this assay. Reference Range HDL <40 mg/dL Low HDL Cholesterol HDL >or= 60 mg/dL High HDL Cholesterol Cholesterol in LDL [Mass/Vol] 127 mg/dL 0-130 [facility] CO2 [Moles/Vol] 19.0 mmol/L 21.0-32.0 [facility] Globulin (S) [Mass/Vol] 4.0 g/dL 2.2-4.2 [facility] Urea nitrogen/Creatinine [Mass ratio] 35.9 mg/mg 10-20 [facility] Laboratory - Hematology and Cell countsOrdered By: [facility] 09-02-2023 MCH (RBC) [Entitic mass] 29.9 pg 27.0-32.0 [facility] MCHC (RBC) [Mass/Vol] 32.1 g/dL 32-36 [facility] Nucleated RBC/100 WBC (Bld) [Ratio] 0 % 0-5 [facility] Platelet mean volume (Bld) [Entitic vol] 11.1 fL 6.2-12.0 [facility] Platelets (Bld) [#/Vol] 278 10*3/uL 150-450 [facility] No Panel InformationOrdered By: Donta Sweet on 09-02-2023 Estimated GFR (MDRD) Amer 59 mL/min >60 [facility] Comment on above: GFR Calc Estimated GFR (MDRD) Non-Af Amer 49 mL/min >60 [facility] Comment on above: Non- GFR Calc Vitamin D 25-Hydroxy 38.2 ng/mL [facility] Comment on above: Vitamin D 25(OH) Sta tus Range Deficiency <20 ng/mL (50nmol/L) Insufficiency 20 - 30 ng/mL (50 - 75 nmol/L) Sufficiency 30 - 100 ng/mL (75 - 250 nmol/L) Toxicity >100 ng/mL (>250 nmol/L) VLDL Cholesterol 33 mg/dL 5-40 [facility] RBC Auto (Bld) [#/Vol]Ordere d By: Donta Sweet on 09-02-2023 RBC (Bld) [#/Vol] 4.25 10*6/uL 4.2-5.4 [facility] Serum or plasma calcium stacey urement (mass/volume)Ordered By: Donta Sweet on 09-02-2023 Calcium [Mass/Vol] 10.0 mg/dL 8.5-10.1 [facility] Serum or plasma creatinine m easurement (mass/volume)Ordered By: Donta Sweet on 09-02-2023 Creatinine [Mass/Vol] 1.17 mg/dL 0.55-1.02 [facility] Comment on above: The validity of the calculated GFR & GFRAA in patients over 70 years has not been determined. Clinical correlation is essential. Serum or plasma thyroid stim ulating hormone (TSH) measurement (units/volume)Ordered By: Donta Sweet on 09-02-2023 TSH Qn 1.21 uIU/mL 0.358-3.74 [facility] Serum or plasma urea nitroge n measurement (mass/volume)Ordered By: Donta Sweet on 09-02-2023 Urea nitrogen [Mass/Vol] 42 mg/dL 7-18 [facility] Thin prep Papanicolaou smear with manual screeningOrdered By: Donta Sweet on 09-02-2023 Thin prep Papanicolaou smear with manual screening 4.0 g/dL 3.2-5.0 [facility] Thin prep Papanicolaou smear with manual screening 22 U/L 15-37 [facility] Thin prep Papanicolaou smear with manual screening 8 5-15 [facility] Basophil percentageOrdered B y: Donta Sweet on 08-07-2023 Bilirubin [Mass/Vol] 0.40 mg/dL 0.20-1.00 [facility] Comment on above: For patients on eltr ombopag therapy, use of Dimension [place] TBIL is not recommended. Chloride [Moles/Vol] 108 mmol/L 98-107 [facility] Glucose [Mass/Vol] 110 mg/dL 74-106 [facility] Comment on above: Fasting Glucose resu lt from 100 to 125 mg/dL suggests IMPAIRED HOMEOSTASIS per A.D.A. criteria. Potassium [Moles/Vol] 4.0 mmol/L 3.5-5.1 [facility] Protein [Mass/Vol] 6.7 g/dL 6.4-8.2 [facility] Sodium [Moles/Vol] 139 mmol/L 136-145 [facility] Laboratory - Chemistry and C hemistry - challengeOrdered By: Donta Sweet on 08-07-2023 Albumin/Globulin [Mass ratio] 0.9 {ratio} 0.9-2.4 [facility] ALP [Catalytic activity/Vol] 67 U/L 45-117 [facility] ALT [Catalytic activity/Vol] 94 U/L 13-56 [facility] CO2 [Moles/Vol] 23.0 mmol/L 21.0-32.0 [facility] Globulin (S) [Mass/Vol] 3.6 g/dL 2.2-4.2 [facility] Urea nitrogen/Creatinine [Mass ratio] 17.3 mg/mg 10-20 [facility] No Panel InformationOrdered By: Donta Sweet on 08-07-2023 Estimated GFR (MDRD) Amer 48 mL/min >60 [facility] Comment on above: GFR Calc Estimated GFR (MDRD) Non-Af Amer 40 mL/min >60 [facility] Comment on above: Non- GFR Calc Serum or plasma calcium stacey urement (mass/volume)Ordered By: Donta Sweet on 08-07-2023 Calcium [Mass/Vol] 9.0 mg/dL 8.5-10.1 [facility] Serum or plasma creatinine m easurement (mass/volume)Ordered By: Donta Sweet on 08-07-2023 Creatinine [Mass/Vol] 1.39 mg/dL 0.55-1.02 [facility] Comment on above: The validity of the calculated GFR & GFRAA in patients over 70 years has not been determined. Clinical correlation is essential. Serum or plasma urea nitroge n measurement (mass/volume)Ordered By: Donta Sweet on 08-07-2023 Urea nitrogen [Mass/Vol] 24 mg/dL 7-18 [facility] Thin prep Papanicolaou smear with manual screeningOrdered By: Donta Sweet on 08-07-2023 Thin prep Papanicolaou smear with manual screening 3.1 g/dL 3.2-5.0 [facility] Thin prep Papanicolaou smear with manual screening 43 U/L 15-37 [facility] Thin prep Papanicolaou smear with manual screening 8 5-15 [facility] Basophil percentageOrdered B y: Donta Sweet on 07-31-2023 Bilirubin [Mass/Vol] 0.40 mg/dL 0.20-1.00 [facility] Comment on above: For patients on eltr ombopag therapy, use of Dimension [place] TBIL is not recommended. Chloride [Moles/Vol] 107 mmol/L 98-107 [facility] Glucose [Mass/Vol] 139 mg/dL 74-106 [facility] Comment on above: Fasting Glucose resu lt greater than or equal to 126 mg/dL suggests DIABETES MELLITUS per A.D.A. criteria. Potassium [Moles/Vol] 4.6 mmol/L 3.5-5.1 [facility] Protein [Mass/Vol] 7.1 g/dL 6.4-8.2 [facility] Sodium [Moles/Vol] 135 mmol/L 136-145 [facility] Laboratory - Chemistry and C hemistry - challengeOrdered By: Donta Sweet on 07-31-2023 Albumin/Globulin [Mass ratio] 0.9 {ratio} 0.9-2.4 [facility] ALP [Catalytic activity/Vol] 81 U/L 45-117 [facility] ALT [Catalytic activity/Vol] 373 U/L 13-56 [facility] CO2 [Moles/Vol] 18.0 mmol/L 21.0-32.0 [facility] Globulin (S) [Mass/Vol] 3.8 g/dL 2.2-4.2 [facility] Urea nitrogen/Creatinine [Mass ratio] 26.0 mg/mg 10-20 [facility] No Panel InformationOrdered By: Donta Sweet on 07-31-2023 Estimated GFR (MDRD) Amer 26 mL/min >60 [facility] Comment on above: GFR Calc Estimated GFR (MDRD) Non-Af Amer 22 mL/min >60 [facility] Comment on above: Non- GFR Calc Serum or plasma calcium stacey urement (mass/volume)Ordered By: Donta Sweet on 07-31-2023 Calcium [Mass/Vol] 9.1 mg/dL 8.5-10.1 [facility] Serum or plasma creatinine m easurement (mass/volume)Ordered By: Donta Sweet on 07-31-2023 Creatinine [Mass/Vol] 2.35 mg/dL 0.55-1.02 [facility] Comment on above: The validity of the calculated GFR & GFRAA in patients over 70 years has not been determined. Clinical correlation is essential. Serum or plasma urea nitroge n measurement (mass/volume)Ordered By: Donta Sweet on 07-31-2023 Urea nitrogen [Mass/Vol] 61 mg/dL 7-18 [facility] Thin prep Papanicolaou smear with manual screeningOrdered By: Donta Sweet on 07-31-2023 Thin prep Papanicolaou smear with manual screening 3.3 g/dL 3.2-5.0 [facility] Thin prep Papanicolaou smear with manual screening 307 U/L 15-37 [facility] Thin prep Papanicolaou smear with manual screening 10 5-15 [facility] Basophil percentageOrdered B y: Donta Sweet on 07-30-2023 Chloride [Moles/Vol] 107 mmol/L 98-107 [facility] Glucose [Mass/Vol] 132 mg/dL 74-106 [facility] Comment on above: Fasting Glucose resu lt greater than or equal to 126 mg/dL suggests DIABETES MELLITUS per A.D.A. criteria. Potassium [Moles/Vol] 4.4 mmol/L 3.5-5.1 [facility] Sodium [Moles/Vol] 131 mmol/L 136-145 [facility] Laboratory - Chemistry and C hemistry - challengeOrdered By: Donta Sweet on 07-30-2023 CO2 [Moles/Vol] 14.0 mmol/L 21.0-32.0 [facility] Sodium (U) [Moles/Vol] 26 mmol/L Not Establ. [facility] Urea nitrogen/Creatinine [Mass ratio] 22.7 mg/mg 10-20 [facility] No Panel InformationOrdered By: Donta Sweet on 07-30-2023 Estimated GFR (MDRD) Amer 28 mL/min >60 [facility] Comment on above: GFR Calc Estimated GFR (MDRD) Non-Af Amer 23 mL/min >60 [facility] Comment on above: Non- GFR Calc Serum or plasma calcium stacey urement (mass/volume)Ordered By: Donta Sweet on 07-30-2023 Calcium [Mass/Vol] 9.1 mg/dL 8.5-10.1 [facility] Serum or plasma creatinine m easurement (mass/volume)Ordered By: Donta Sweet on 07-30-2023 Creatinine [Mass/Vol] 2.25 mg/dL 0.55-1.02 [facility] Comment on above: The validity of the calculated GFR & GFRAA in patients over 70 years has not been determined. Clinical correlation is essential. Serum or plasma urea nitroge n measurement (mass/volume)Ordered By: Donta Sweet on 07-30-2023 Urea nitrogen [Mass/Vol] 51 mg/dL 7-18 [facility] Thin prep Papanicolaou smear with manual screeningOrdered By: Donta Sweet on 07-30-2023 Thin prep Papanicolaou smear with manual screening 10 5-15 [facility] Urine creatinine measurement (mass/volume)Ordered By: Donta Shira on 07-30-2023 Creatinine (U) [Mass/Vol] mg/dL NO RANGE EST. [facility] Absolute lymphocyte countOrd ered By: Donta Shira on 07-27-2023 Lymphocytes Auto (Unsp spec) [#/Vol] 1.62 10*3/uL 0.83-4.51 [facility] Automated lymphocyte count a s percentage of total leukocytesOrdered By: Donta Sweet on 07-27-2023 Lymphocytes/100 WBC Auto (Unsp spec) 13.1 % 19-41 [facility] Basophil percentageOrdered B y: Donta Shira on 07-27-2023 Basophils/100 WBC (Bld) 0.3 % 0-1 [facility] Bilirubin [Mass/Vol] 0.40 mg/dL 0.20-1.00 [facility] Comment on above: For patients on eltr ombopag therapy, use of Dimension [place] TBIL is not recommended. Chloride [Moles/Vol] 104 mmol/L 98-107 [facility] Eosinophils/100 WBC (Bld) 1.6 % 0-5 [facility] Glucose [Mass/Vol] 112 mg/dL 74-106 [facility] Comment on above: Fasting Glucose resu lt from 100 to 125 mg/dL suggests IMPAIRED HOMEOSTASIS per A.D.A. criteria. Hemoglobin (Bld) [Mass/Vol] 12.4 g/dL 12.0-15.0 [facility] Monocytes/100 WBC (Bld) 6.1 % 0-10 [facility] Neutrophils (Bld) [#/Vol] 9.7 10*3/uL 2.0-7.7 [facility] Neutrophils/100 WBC (Bld) 78.4 % 47-70 [facility] Potassium [Moles/Vol] 4.7 mmol/L 3.5-5.1 [facility] Protein [Mass/Vol] 7.4 g/dL 6.4-8.2 [facility] Sodium [Moles/Vol] 135 mmol/L 136-145 [facility] WBC (Bld) [#/Vol] 12.4 10*3/uL 4.4-11.0 [facility] Culture, urineOrdered By: Luis Angel Sweet on 07-27-2023 Bacteria identified Cx Nom (U) Presumptive E. coli [facility] Determination of erythrocyte mean corpuscular volume (MCV)Ordered By: Donta Sweet on 07-27-2023 MCV (RBC) [Entitic vol] 87.1 fL 81-99 [facility] Erythrocyte distribution wid th ratioOrdered By: Donta Sweet on 07-27-2023 Erythrocyte distribution width (RBC) [Ratio] 14.6 % 11.6-14.6 [facility] Erythrocyte distribution wid th standard deviationOrdered By: Donta Sweet on 07-27-2023 Erythrocyte distribution width (RBC) [Entitic vol] 46.5 fL 35.1-43.9 [facility] Hematocrit Auto (Bld) [Volum e fraction]Ordered By: Donta Sweet on 07-27-2023 Hematocrit (Bld) [Volume fraction] 36.4 % 37-47 [facility] Immature granulocytes/100 WB C Auto (Bld)Ordered By: Donta Sweet on 07-27-2023 Immature granulocytes/100 WBC (Bld) 0.500 % 0.0-0.9 [facility] Comment on above: IG% - Immature Granu locytes (promyelocytes, myelocytes and metamyelocytes) > 1% indicates that a LEFT SHIFT is Present. Laboratory - Chemistry and C hemistry - challengeOrdered By: Donta Sweet on 07-27-2023 Albumin/Globulin [Mass ratio] 0.8 {ratio} 0.9-2.4 [facility] ALP [Catalytic activity/Vol] 84 U/L 45-117 [facility] ALT [Catalytic activity/Vol] 446 U/L 13-56 [facility] CO2 [Moles/Vol] 17.0 mmol/L 21.0-32.0 [facility] Globulin (S) [Mass/Vol] 4.0 g/dL 2.2-4.2 [facility] Urea nitrogen/Creatinine [Mass ratio] 22.7 mg/mg 10-20 [facility] Laboratory - Hematology and Cell countsOrdered By: Donta Sweet on 07-27-2023 MCH (RBC) [Entitic mass] 29.7 pg 27.0-32.0 [facility] MCHC (RBC) [Mass/Vol] 34.1 g/dL 32-36 [facility] Nucleated RBC/100 WBC (Bld) [Ratio] 0 % 0-5 [facility] Platelet mean volume (Bld) [Entitic vol] 10.7 fL 6.2-12.0 [facility] Platelets (Bld) [#/Vol] 260 10*3/uL 150-450 [facility] No Panel InformationOrdered By: Donta Sweet on 07-27-2023 Estimated GFR (MDRD) Amer 24 mL/min >60 [facility] Comment on above: GFR Calc Estimated GFR (MDRD) Non-Af Amer 20 mL/min >60 [facility] Comment on above: Non- GFR Calc RBC Auto (Bld) [#/Vol]Ordere d By: Donta Sweet on 07-27-2023 RBC (Bld) [#/Vol] 4.18 10*6/uL 4.2-5.4 [facility] Serum or plasma calcium stacey urement (mass/volume)Ordered By: Donta Sweet on 07-27-2023 Calcium [Mass/Vol] 9.2 mg/dL 8.5-10.1 [facility] Serum or plasma creatinine m easurement (mass/volume)Ordered By: Donta Sweet on 07-27-2023 Creatinine [Mass/Vol] 2.55 mg/dL 0.55-1.02 [facility] Comment on above: The validity of the calculated GFR & GFRAA in patients over 70 years has not been determined. Clinical correlation is essential. Serum or plasma thyroid stim ulating hormone (TSH) measurement (units/volume)Ordered By: Donta Sweet on 07-27-2023 TSH Qn 1.47 uIU/mL 0.358-3.74 [facility] Serum or plasma urea nitroge n measurement (mass/volume)Ordered By: Donta Sweet on 07-27-2023 Urea nitrogen [Mass/Vol] 58 mg/dL 7-18 [facility] Thin prep Papanicolaou smear with manual screeningOrdered By: Donta Sweet on 07-27-2023 Thin prep Papanicolaou smear with manual screening 3.4 g/dL 3.2-5.0 [facility] Thin prep Papanicolaou smear with manual screening 573 U/L 15-37 [facility] Thin prep Papanicolaou smear with manual screening 14 5-15 [facility] Whole blood hemoglobin A1c/t otal hemoglobin ratio (mass fraction)Ordered By: Donta Sweet on 07-27-2023 HbA1c (Bld) [Mass fraction] 6.9 % 3.8-5.6 [facility] Comment on above: Normal < 5.7 % Predi abetic 5.7 - 6.4 % Diabetic >or= 6.5 % Please note range changes. Absolute lymphocyte countOrd ered By: Thomas Hollis on 06-01-2023 Lymphocytes Auto (Unsp spec) [#/Vol] 1.23 10*3/uL 0.83-4.51 [facility] Automated lymphocyte count a s percentage of total leukocytesOrdered By: Thomas Hollis on 06-01-2023 Lymphocytes/100 WBC Auto (Unsp spec) 17.4 % 19-41 [facility] Basophil percentageOrdered B y: Thomas Hollis on 06-01-2023 Basophils/100 WBC (Bld) 0.6 % 0-1 [facility] Bilirubin [Mass/Vol] 0.50 mg/dL 0.20-1.00 [facility] Comment on above: For patients on eltr ombopag therapy, use of Dimension [place] TBIL is not recommended. Chloride [Moles/Vol] 106 mmol/L 98-107 [facility] Cholesterol [Mass/Vol] 131 mg/dL <200 [facility] Comment on above: <200 mg/dL Desirable 200-240 mg/dL Borderline >240 mg/dL High Risk Eosinophils/100 WBC (Bld) 4.0 % 0-5 [facility] Glucose [Mass/Vol] 109 mg/dL 74-106 [facility] Comment on above: Fasting Glucose resu lt from 100 to 125 mg/dL suggests IMPAIRED HOMEOSTASIS per A.D.A. criteria. Hemoglobin (Bld) [Mass/Vol] 12.9 g/dL 12.0-15.0 [facility] Monocytes/100 WBC (Bld) 6.6 % 0-10 [facility] Neutrophils (Bld) [#/Vol] 5.0 10*3/uL 2.0-7.7 [facility] Neutrophils/100 WBC (Bld) 71.0 % 47-70 [facility] Potassium [Moles/Vol] 4.6 mmol/L 3.5-5.1 [facility] Protein [Mass/Vol] 7.9 g/dL 6.4-8.2 [facility] Sodium [Moles/Vol] 135 mmol/L 136-145 [facility] Triglyceride [Mass/Vol] 105 mg/dL <199 [facility] Comment on above: The drugs N-Acetylcy steine and Metamizole may falsely depress this assay.Serum Triglycerides Reference Interval Normal <150 mg/dL Borderline high 150 - 199 mg/dL High 200 - 499 mg/dL Very High > or = 500 mg/dL WBC (Bld) [#/Vol] 7.1 10*3/uL 4.4-11.0 [facility] Determination of erythrocyte mean corpuscular volume (MCV)Ordered By: Thomas Hollis on 06-01-2023 MCV (RBC) [Entitic vol] 89.4 fL 81-99 [facility] Direct bilirubinOrdered By: Thomas Hollis on 06-01-2023 Bilirubin.direct [Mass/Vol] 0.12 mg/dL 0.00-0.30 [facility] Erythrocyte distribution wid th ratioOrdered By: Holsteinsonya Hollis on 06-01-2023 Erythrocyte distribution width (RBC) [Ratio] 15.6 % 11.6-14.6 [facility] Erythrocyte distribution wid th standard deviationOrdered By: Thomas Hollis on 06-01-2023 Erythrocyte distribution width (RBC) [Entitic vol] 51.0 fL 35.1-43.9 [facility] Hematocrit Auto (Bld) [Volum e fraction]Ordered By: Thomas Hollis on 06-01-2023 Hematocrit (Bld) [Volume fraction] 39.8 % 37-47 [facility] Immature granulocytes/100 WB C Auto (Bld)Ordered By: Thomas Hollis on 06-01-2023 Immature granulocytes/100 WBC (Bld) 0.400 % 0.0-0.9 [facility] Comment on above: IG% - Immature Granu locytes (promyelocytes, myelocytes and metamyelocytes) > 1% indicates that a LEFT SHIFT is Present. Laboratory - Chemistry and C hemistry - challengeOrdered By: Thomas Hollis on 06-01-2023 Albumin/Globulin [Mass ratio] 0.9 {ratio} 0.9-2.4 [facility] ALP [Catalytic activity/Vol] 111 U/L 45-117 [facility] ALT [Catalytic activity/Vol] 35 U/L 13-56 [facility] Cholesterol in HDL [Mass/Vol] 47 mg/dL >40 [facility] Comment on above: The drugs N-Acetylcy steine and Metamizole may falsely depress this assay. Reference Range HDL <40 mg/dL Low HDL Cholesterol HDL >or= 60 mg/dL High HDL Cholesterol Cholesterol in LDL [Mass/Vol] 63 mg/dL 0-130 [facility] CO2 [Moles/Vol] 22.0 mmol/L 21.0-32.0 [facility] Globulin (S) [Mass/Vol] 4.1 g/dL 2.2-4.2 [facility] Urea nitrogen/Creatinine [Mass ratio] 29.5 mg/mg 10-20 [facility] Laboratory - Hematology and Cell countsOrdered By: Thomas Hollis on 06-01-2023 MCH (RBC) [Entitic mass] 29.0 pg 27.0-32.0 [facility] MCHC (RBC) [Mass/Vol] 32.4 g/dL 32-36 [facility] Nucleated RBC/100 WBC (Bld) [Ratio] 0 % 0-5 [facility] Platelets (Bld) [#/Vol] 234 10*3/uL 150-450 [facility] No Panel InformationOrdered By: Thomas Hollis on 06-01-2023 Estimated GFR (MDRD) Amer 62 mL/min >60 [facility] Comment on above: GFR Calc Estimated GFR (MDRD) Non-Af Amer 51 mL/min >60 [facility] Comment on above: Non- GFR Calc Vitamin D 25-Hydroxy 21.6 ng/mL [facility] Comment on above: Vitamin D 25(OH) Sta tus Range Deficiency <20 ng/mL (50nmol/L) Insufficiency 20 - 30 ng/mL (50 - 75 nmol/L) Sufficiency 30 - 100 ng/mL (75 - 250 nmol/L) Toxicity >100 ng/mL (>250 nmol/L) VLDL Cholesterol 21 mg/dL 5-40 [facility] Platelet mean volume Johnson-[facility] ker (Bld) [Entitic vol]Ordered By: Thomas Hollis on 06-01-2023 Platelet mean volume (Bld) [Entitic vol] 11.1 fL 6.2-12.0 [facility] RBC Auto (Bld) [#/Vol]Ordere d By: Thomas Hollis on 06-01-2023 RBC (Bld) [#/Vol] 4.45 10*6/uL 4.2-5.4 [facility] Serum or plasma calcium stacey urement (mass/volume)Ordered By: Thomas Hollis on 06-01-2023 Calcium [Mass/Vol] 9.9 mg/dL 8.5-10.1 [facility] Serum or plasma creatinine m easurement (mass/volume)Ordered By: Thomas Hollis on 06-01-2023 Creatinine [Mass/Vol] 1.12 mg/dL 0.55-1.02 [facility] Comment on above: The validity of the calculated GFR & GFRAA in patients over 70 years has not been determined. Clinical correlation is essential. Serum or plasma thyroid stim ulating hormone (TSH) measurement (units/volume)Ordered By: Thomas Hollis on 06-01-2023 TSH Qn 1.44 uIU/mL 0.358-3.74 [facility] Serum or plasma urea nitroge n measurement (mass/volume)Ordered By: Thomas Hollis on 06-01-2023 Urea nitrogen [Mass/Vol] 33 mg/dL 7-18 [facility] Thin prep Papanicolaou smear with manual screeningOrdered By: Thomas Hollis on 06-01-2023 Thin prep Papanicolaou smear with manual screening 3.8 g/dL 3.2-5.0 [facility] Thin prep Papanicolaou smear with manual screening 29 U/L 15-37 [facility] Thin prep Papanicolaou smear with manual screening 7 5-15 [facility] Absolute lymphocyte countOrd ered By: Donta Sweet on 03-10-2023 Lymphocytes Auto (Unsp spec) [#/Vol] 1.49 10*3/uL 0.83-4.51 [facility] Basophil percentageOrdered B y: Donta Sweet on 03-10-2023 Basophils/100 WBC (Bld) 0.6 % 0-1 [facility] Bilirubin [Mass/Vol] 0.30 mg/dL 0.20-1.00 [facility] Comment on above: For patients on eltr ombopag therapy, use of Dimension [place] TBIL is not recommended. Chloride [Moles/Vol] 107 mmol/L 98-107 [facility] Eosinophils/100 WBC (Bld) 3.8 % 0-5 [facility] Glucose [Mass/Vol] 101 mg/dL 74-106 [facility] Comment on above: Fasting Glucose resu lt from 100 to 125 mg/dL suggests IMPAIRED HOMEOSTASIS per A.D.A. criteria. Neutrophils (Bld) [#/Vol] 5.8 10*3/uL 2.0-7.7 [facility] Neutrophils/100 WBC (Bld) 70.0 % 47-70 [facility] Potassium [Moles/Vol] 4.6 mmol/L 3.5-5.1 [facility] Protein [Mass/Vol] 8.0 g/dL 6.4-8.2 [facility] Sodium [Moles/Vol] 138 mmol/L 136-145 [facility] WBC (Bld) [#/Vol] 8.3 10*3/uL 4.4-11.0 [facility] Blood erythrocytes count (nu mber/volume)Ordered By: Donta Sweet on 03-10-2023 RBC (Bld) [#/Vol] 4.25 10*6/uL 4.2-5.4 [facility] Blood hemoglobin measurement (mass/volume)Ordered By: Donta Sweet on 03-10-2023 Hemoglobin (Bld) [Mass/Vol] 12.5 g/dL 12.0-15.0 [facility] Blood lymphocytes/100 leukoc ytesOrdered By: Donta Sweet on 03-10-2023 Lymphocytes/100 WBC (Bld) 17.9 % 19-41 [facility] Blood monocytes/100 leukocyt esOrdered By: Donta Sweet on 03-10-2023 Monocytes/100 WBC (Bld) 7.3 % 0-10 [facility] Blood platelet mean volumeOr dered By: Donta Sweet on 03-10-2023 Platelet mean volume (Bld) [Entitic vol] 11.2 fL 6.2-12.0 [facility] Determination of erythrocyte mean corpuscular volume (MCV)Ordered By: Donta Sweet on 03-10-2023 MCV (RBC) [Entitic vol] 90.8 fL 81-99 [facility] Hematocrit Auto (Bld) [Volum e fraction]Ordered By: [facility] on 03-10-2023 Hematocrit (Bld) [Volume fraction] 38.6 % 37-47 [facility] Laboratory - Chemistry and C hemistry - challengeOrdered By: [facility] 03-10-2023 ALP [Catalytic activity/Vol] 113 U/L 45-117 [facility] ALT [Catalytic activity/Vol] 29 U/L 13-56 [facility] CO2 [Moles/Vol] 25.0 mmol/L 21.0-32.0 [facility] Globulin (S) [Mass/Vol] 4.2 g/dL 2.2-4.2 [facility] Urea nitrogen/Creatinine [Mass ratio] 23.6 mg/mg 10-20 [facility] Laboratory - Hematology and Cell countsOrdered By: [facility] 03-10-2023 Erythrocyte distribution width (RBC) [Entitic vol] 50.2 fL 35.1-43.9 [facility] Erythrocyte distribution width (RBC) [Ratio] 15.1 % 11.6-14.6 [facility] Immature granulocytes/100 WBC (Bld) 0.400 % 0.0-0.9 [facility] Comment on above: IG% - Immature Granu locytes (promyelocytes, myelocytes and metamyelocytes) > 1% indicates that a LEFT SHIFT is Present. MCH (RBC) [Entitic mass] 29.4 pg 27.0-32.0 [facility] Nucleated RBC/100 WBC (Bld) [Ratio] 0 % 0-5 [facility] Auto (RBC) [Mass/Vol]Or dered By: Donta Sweet on 03-10-2023 MCHC (RBC) [Mass/Vol] 32.4 g/dL 32-36 [facility] No Panel InformationOrdered By: Donta Sweet on 03-10-2023 Estimated GFR (MDRD) Amer 54 mL/min >60 [facility] Comment on above: GFR Calc Estimated GFR (MDRD) Non-Af Amer 44 mL/min >60 [facility] Comment on above: Non- GFR Calc Thyroid Stimulating Hormone (TSH) 1.46 uIU/mL 0.358-3.74 [facility] Vitamin D 25-Hydroxy 32.7 ng/mL [facility] Comment on above: Vitamin D 25(OH) Sta tus Range Deficiency <20 ng/mL (50nmol/L) Insufficiency 20 - 30 ng/mL (50 - 75 nmol/L) Sufficiency 30 - 100 ng/mL (75 - 250 nmol/L) Toxicity >100 ng/mL (>250 nmol/L) Platelets bldOrdered By: Donta Sweet on 03-10-2023 Platelets (Bld) [#/Vol] 224 10*3/uL 150-450 [facility] Serum or plasma albumin stacey urement (mass/volume)Ordered By: Donta Sweet 03-10-2023 Albumin [Mass/Vol] 3.8 g/dL 3.2-5.0 [facility] Serum or plasma albumin/glob ulin mass ratioOrdered By: Donta Sweet 03-10-2023 Albumin/Globulin [Mass ratio] 0.9 {ratio} 0.9-2.4 [facility] Serum or plasma calcium stacey urement (mass/volume)Ordered By: Donta Sweet 03-10-2023 Calcium [Mass/Vol] 9.8 mg/dL 8.5-10.1 [facility] Serum or plasma creatinine m easurement (mass/volume)Ordered By: Donta Sweet on 03-10-2023 Creatinine [Mass/Vol] 1.27 mg/dL 0.55-1.02 [facility] Comment on above: The validity of the calculated GFR & GFRAA in patients over 70 years has not been determined. Clinical correlation is essential. Serum or plasma urea nitroge n measurement (mass/volume)Ordered By: Donta Sweet on 03-10-2023 Urea nitrogen [Mass/Vol] 30 mg/dL 7-18 [facility] Thin prep Papanicolaou smear with manual screeningOrdered By: Donta Sweet on 03-10-2023 Thin prep Papanicolaou smear with manual screening 30 U/L 15-37 [facility] Thin prep Papanicolaou smear with manual screening 6 5-15 [facility] No Panel InformationOrdered By: Donta Sweet on 01-01-2023 Thyroid Stimulating Hormone (TSH) 2.33 uIU/mL 0.358-3.74 [facility] Whole blood hemoglobin A1c/t otal hemoglobin ratio (mass fraction)Ordered By: Donta Sweet on 01-01-2023 HbA1c (Bld) [Mass fraction] 8.8 % 3.8-5.6 [facility] Comment on above: Normal < 5.7 % Predi abetic 5.7 - 6.4 % Diabetic >or= 6.5 % Please note range changes. Absolute lymphocyte countOrd ered By: Donta Shira on 12-01-2022 Lymphocytes Auto (Unsp spec) [#/Vol] 1.16 10*3/uL 0.83-4.51 [facility] Basophil percentageOrdered B y: Donta Popeok on 12-01-2022 Basophils/100 WBC (Bld) 0.4 % 0-1 [facility] Bilirubin [Mass/Vol] 0.80 mg/dL 0.20-1.00 [facility] Comment on above: For patients on eltr ombopag therapy, use of Dimension [place] TBIL is not recommended. Chloride [Moles/Vol] 104 mmol/L 98-107 [facility] Eosinophils/100 WBC (Bld) 1.8 % 0-5 [facility] Glucose [Mass/Vol] 173 mg/dL 74-106 [facility] Comment on above: Fasting Glucose resu lt greater than or equal to 126 mg/dL suggests DIABETES MELLITUS per A.D.A. criteria. Neutrophils (Bld) [#/Vol] 7.0 10*3/uL 2.0-7.7 [facility] Neutrophils/100 WBC (Bld) 74.1 % 47-70 [facility] Potassium [Moles/Vol] 4.0 mmol/L 3.5-5.1 [facility] Protein [Mass/Vol] 6.9 g/dL 6.4-8.2 [facility] Sodium [Moles/Vol] 136 mmol/L 136-145 [facility] WBC (Bld) [#/Vol] 9.4 10*3/uL 4.4-11.0 [facility] Blood erythrocytes count (nu mber/volume)Ordered By: Donta Sweet on 12-01-2022 RBC (Bld) [#/Vol] 3.69 10*6/uL 4.2-5.4 [facility] Blood hemoglobin measurement (mass/volume)Ordered By: Donta Sweet on 12-01-2022 Hemoglobin (Bld) [Mass/Vol] 10.9 g/dL 12.0-15.0 [facility] Blood lymphocytes/100 leukoc ytesOrdered By: Donta Sweet on 12-01-2022 Lymphocytes/100 WBC (Bld) 12.3 % 19-41 [facility] Blood monocytes/100 leukocyt esOrdered By: Donta Sweet on 12-01-2022 Monocytes/100 WBC (Bld) 9.7 % 0-10 [facility] Blood platelet mean volumeOr dered By: Donta Sweet on 12-01-2022 Platelet mean volume (Bld) [Entitic vol] 10.5 fL 6.2-12.0 [facility] Determination of erythrocyte mean corpuscular volume (MCV)Ordered By: Donta Sweet on 12-01-2022 MCV (RBC) [Entitic vol] 87.0 fL 81-99 [facility] Hematocrit Auto (Bld) [Volum e fraction]Ordered By: Donta Sweet on 12-01-2022 Hematocrit (Bld) [Volume fraction] 32.1 % 37-47 [facility] Laboratory - Chemistry and C hemistry - challengeOrdered By: Donta Sweet on 12-01-2022 ALP [Catalytic activity/Vol] 218 U/L 45-117 [facility] ALT [Catalytic activity/Vol] 40 U/L 13-56 [facility] CO2 [Moles/Vol] 25.0 mmol/L 21.0-32.0 [facility] Globulin (S) [Mass/Vol] 4.5 g/dL 2.2-4.2 [facility] Urea nitrogen/Creatinine [Mass ratio] 17.2 mg/mg 10-20 [facility] Laboratory - Hematology and Cell countsOrdered By: Donta Sweet on 12-01-2022 Erythrocyte distribution width (RBC) [Entitic vol] 43.9 fL 35.1-43.9 [facility] Erythrocyte distribution width (RBC) [Ratio] 13.8 % 11.6-14.6 [facility] Immature granulocytes/100 WBC (Bld) 1.700 % 0.0-0.9 [facility] Comment on above: IG% - Immature Granu locytes (promyelocytes, myelocytes and metamyelocytes) > 1% indicates that a LEFT SHIFT is Present. MCH (RBC) [Entitic mass] 29.5 pg 27.0-32.0 [facility] Nucleated RBC/100 WBC (Bld) [Ratio] 0 % 0-5 [facility] MCHC Auto (RBC) [Mass/Vol]Or dered By: Donta Sweet on 12-01-2022 MCHC (RBC) [Mass/Vol] 34.0 g/dL 32-36 [facility] No Panel InformationOrdered By: Donta Sweet on 12-01-2022 Estimated GFR (MDRD) Amer 60 mL/min >60 [facility] Comment on above: GFR Calc Estimated GFR (MDRD) Non-Af Amer 49 mL/min >60 [facility] Comment on above: Non- GFR Calc Thyroid Stimulating Hormone (TSH) 4.23 uIU/mL 0.358-3.74 [facility] Vitamin D 25-Hydroxy 16.3 ng/mL [facility] Comment on above: Vitamin D 25(OH) Sta tus Range Deficiency <20 ng/mL (50nmol/L) Insufficiency 20 - 30 ng/mL (50 - 75 nmol/L) Sufficiency 30 - 100 ng/mL (75 - 250 nmol/L) Toxicity >100 ng/mL (>250 nmol/L) Platelets bldOrdered By: Donta Sweet on 12-01-2022 Platelets (Bld) [#/Vol] 355 10*3/uL 150-450 [facility] Serum or plasma albumin stacey urement (mass/volume)Ordered By: Donta Sweet on 12-01-2022 Albumin [Mass/Vol] 2.4 g/dL 3.2-5.0 [facility] Serum or plasma albumin/glob ulin mass ratioOrdered By: Donta Sweet on 12-01-2022 Albumin/Globulin [Mass ratio] 0.5 {ratio} 0.9-2.4 [facility] Serum or plasma calcium stacey urement (mass/volume)Ordered By: Donta Sweet on 12-01-2022 Calcium [Mass/Vol] 8.9 mg/dL 8.5-10.1 [facility] Serum or plasma creatinine m easurement (mass/volume)Ordered By: Donta Sweet on 12-01-2022 Creatinine [Mass/Vol] 1.16 mg/dL 0.55-1.02 [facility] Comment on above: The validity of the calculated GFR & GFRAA in patients over 70 years has not been determined. Clinical correlation is essential. Serum or plasma urea nitroge n measurement (mass/volume)Ordered By: Donta Sweet on 12-01-2022 Urea nitrogen [Mass/Vol] 20 mg/dL 7-18 [facility] Thin prep Papanicolaou smear with manual screeningOrdered By: Donta Sweet 12-01-2022 Thin prep Papanicolaou smear with manual screening 43 U/L 15-37 [facility] Thin prep Papanicolaou smear with manual screening 7 5-15 [facility] Vital Signs Date Time Vital Sign Value Performing Clinician Faci travy 09-01-2024 09:03-0400 Body mass index (BMI) [Ratio] 23.8 kg/m2 Dr. Donta Sweet MD Work Phone: [facility] 09-01-2024 09:03-0400 Body weight 63.[address] Donta Sweet MD Work Phone: [facility] 09-01-2024 09:03-0400 Diastolic blood pressure 93 mm[Hg] Dr. Donta Sweet MD Work Phone: [facility] 09-01-2024 09:03-0400 Heart rate 82 /min Dr. Donta Sweet MD Work Phone: [facility] 09-01-2024 09:03-0400 Respiratory rate 16 /min Dr. Donta Sweet MD Work Phone: 0([phone] [place] [address] 09-01-2024 09:03-0400 Systolic blood pressure 163 mm[Hg] Dr. Donta Sweet MD Work Phone: 0([phone])770-741075 [place] [address] 08-10-2023 08:52-0400 Body height 162.[address] Donta Sweet Work Phone: 9(459)496-285075 [place] [address] 08-10-2023 08:52-0400 Body mass index (BMI) [Ratio] 23 kg/m2 Dr. Donta Sweet Work Phone: 8(661)[phone] [place] [address] 08-10-2023 08:52-0400 Body weight 60.[address] Donta Sweet Work Phone: 1(649)156-416675 [place] [address] 08-10-2023 08:52-0400 Diastolic blood pressure 80 mm[Hg] Dr. Donta Sweet Work Phone: 8(202)856-927401 [place] [address] 08-10-2023 08:52-0400 Heart rate 77 /min Dr. Donta Sweet Work Phone: 5(104)506-133975 [place] [address] 08-10-2023 08:52-0400 Respiratory rate 18 /min Dr. Donta Sweet Work Phone: 3(813)[phone] [place] [address] 08-10-2023 08:52-0400 SaO2% (BldA) [Mass fraction] 98 % Dr. Donta Sweet Work Phone: 0(967)[phone] [place] [address] 08-10-2023 08:52-0400 Systolic blood pressure 146 mm[Hg] Dr. Donta Sweet Work Phone: 1(772)962-069775 [place] [address] 04-03-2023 14:25-0500 Body height 162.[address] Donta Sweet Work Phone: 6(419)[phone] [place] [address] 04-03-2023 14:25-0500 Body mass index (BMI) [Ratio] 21.9 kg/m2 Dr. Donta Sweet Work Phone: 0(382)[phone] [place] [address] 04-03-2023 14:25-0500 Body weight 58.[address] Donta Sweet Work Phone: [facility] 04-03-2023 14:25-0500 Diastolic blood pressure 95 mm[Hg] Dr. Donta Sweet Work Phone: [facility] 04-03-2023 14:25-0500 Heart rate 93 /min Dr. Donta Sweet Work Phone: [facility] 04-03-2023 14:25-0500 Respiratory rate 18 /min Dr. Donta Sweet Work Phone: [facility] 04-03-2023 14:25-0500 SaO2% (BldA) [Mass fraction] 97 % Dr. Donta Sweet Work Phone: [facility] 04-03-2023 14:25-0500 Systolic blood pressure 157 mm[Hg] Dr. Donta Sweet Work Phone: [facility] 01-21-2023 15:05-0400 Body height 162.[address] Donta Sweet Work Phone: [facility] 01-21-2023 15:05-0400 Body mass index (BMI) [Ratio] 21.9 kg/m2 Dr. Donta Sweet Work Phone: [facility] 01-21-2023 15:05-0400 Body weight 58.[address] Donta Sweet Work Phone: [facility] 01-21-2023 15:05-0400 Diastolic blood pressure 89 mm[Hg] Dr. Donta Sweet Work Phone: [facility] 01-21-2023 15:05-0400 Heart rate 87 /min Dr. Donta Sweet Work Phone: [facility] 01-21-2023 15:05-0400 Respiratory rate 16 /min Dr. Donta Sweet Work Phone: [facility] 01-21-2023 15:05-0400 Systolic blood pressure 151 mm[Hg] Dr. Donta Sweet Work Phone: [facility] Encounters Encounter Date Encounter Type Care Provider Facility Start: 03-09-2025 ambulatory Donta Riley Sweet Facility:[facility] Start: 03-08-2025 ambulatory Donta Sweet Facility:[facility] Start: 01-18-2025 End: 01-18-[address] Donta Sweet MD Work Phone: -[facility] Start: 01-18-2025 End: 01-18-[address] Thomas Hollis MD -[facility] Work Phone: Start: 12-12-2024 End: 12-12-[address] Donta Sweet MD Work Phone: -Laboratory Phy Office 3rd Flr Start: 12-12-2024 End: 12-12-[address] Donta Sweet MD -Laboratory Phy [facility] 3rd Flr Start: 12-12-2024 End: 12-12-2024 ambulatory Donta Sweet Facility:[facility] Start: 12-05-2024 End: 12-05-[address] Donta Sweet MD Work Phone: -Laboratory Start: 12-05-2024 End: 12-05-[address] Donta Sweet MD -Laboratory Work Phone: Start: 12-05-2024 End: 12-05-2024 ambulatory Britta PAGAN Facility:[facility] Start: 10-19-2024 End: 10-19-[address] Donta Sweet MD Work Phone: -[facility] Start: 10-19-2024 End: 10-19-[address] Thomas Hollis MD -[facility] Work Phone: Start: 09-01-2024 End: 09-01-2024 Patient encounter procedure Britta PAGAN -[facility] Work Phone: Start: 09-01-2024 End: 09-01-2024 ambulatory Donta Riley Sweet Facility:[facility] Start: 07-20-2024 End: 07-20-2024 ambulatory Thomas Hollis Facility:[facility] Start: 07-20-2024 End: 07-20-[address] hTomas Hollis MD -[facility] Work Phone: Start: 06-03-2024 End: 06-03-2024 ambulatory [facility] Shira Facility:[facility] Start: 04-22-2024 End: 04-22-2024 ambulatory Thomas Hollis Facility:[facility] Start: 03-21-2024 End: 03-21-2024 ambulatory Donta [facility] Facility:[facility] Start: 09-02-[address] Donta Sweet Work Phone: [facility]-Laboratory Work Phone: Start: 08-28-2023 End: 08-28-[address] Donta Sweet Work Phone: [facility] Work Phone: Start: 08-28-2023 End: 08-28-[address] Donta Sweet Work Phone: [facility] Work Phone: Start: 08-10-2023 End: 08-10-[address] Donta Sweet Work Phone: [facility] Work Phone: Start: 08-07-2023 End: 08-07-[address] Donta Sweet Work Phone: [facility] Work Phone: Start: 08-07-2023 End: 08-07-[address] Donta Sweet Work Phone: [facility]-Laboratory, Phy Office 3rd Idr Start: 07-31-2023 End: 07-31-[address] Donta Sweet Work Phone: [facility] Work Phone: Start: 07-31-2023 End: 07-31-[address] Donta Sweet Work Phone: [facility] Work Phone: Start: 07-31-2023 End: 07-31-[address] Donta Sweet Work Phone: [facility] Work Phone: Start: 07-31-2023 End: 07-31-[address] Donta Sweet Work Phone: [facility], y Office 3rd Flr Start: 07-30-2023 End: 07-30-[address] Donta Sweet Work Phone: [facility] Work Phone: Start: 07-30-2023 End: 07-30-[address] Donta Sweet Work Phone: [facility] Work Phone: Start: 07-27-2023 End: 07-27-[address] Donta Sweet Work Phone: [facility] Work Phone: Start: 07-27-2023 End: 07-27-[address] Donta Sweet Work Phone: [facility], [facility] Office 3rd Flr Start: 07-03-2023 Non-patient / Non-visit Dr. Luis Angel Sweet Work Phone: [facility] Work Phone: Start: 07-03-2023 Non-patient / Non-visit Dr. Luis Angel Sweet Work Phone: [facility] Start: 07-03-2023 End: 07-03-[address] Donta Sweet Work Phone: [facility] Work Phone: Start: 07-03-2023 End: 07-03-[address] [facility] Start: 06-01-2023 End: 06-01-[address] Donta Sweet Work Phone: [facility] Work Phone: Start: 06-01-2023 End: 06-01-[address] Donta Sweet Work Phone: [facility], [facility] Office 3rd Flr Start: 04-03-2023 End: 04-03-[address] Donta Sweet Work Phone: [facility] Work Phone: Start: 03-10-2023 End: 03-10-[address] Donta Sweet Work Phone: [facility] Work Phone: Start: 03-10-2023 End: 03-10-[address] Donta Sweet Work Phone: [facility] Office 3rd Flr Start: 02-20-2023 Non-patient / Non-visit Dr. Luis Angel Sweet Work Phone: [facility] Work Phone: Start: 02-20-2023 Non-patient / Non-visit Dr. Luis Angel Sweet Work Phone: [facility] Start: 02-20-2023 End: 02-20-[address] [facility] Work Phone: Start: 01-21-2023 End: 01-21-[address] Donta Sweet Work Phone: [facility] Work Phone: Start: 01-01-2023 End: 01-01-[address] Donta Sweet Work Phone: [facility] Office 3rd Flr Start: 12-23-2022 Non-patient / Non-visit Dr. Luis Angel Sweet Work Phone: [facility] Work Phone: Start: 12-01-2022 End: 12-01-2022 ambulatory [facility] Work Phone: Start: 12-01-2022 End: 12-01-2022 Patient encounter procedure [facility] Office 3rd Flr Procedures Date Procedure [...] stent placement Britta PAGAN Comment on above: VDW-DAC-oMVB w/ 2.75 x 38mm XIENCE [place]POINT JENNIFER 11/25/2285PWZ-[id number]-iZOH w/ 3.5 x 30mm NAT FRONTIER JENNIFER 11/23/22 Plan of Treatment Date Care Activity Detail Author Basic metabolic 2008 panel with ionized calcium - Serum or Plasma [facility] Hemoglobin A1c/Hemoglobin.total in Blood [facility] Lipid 1996 panel - Serum or Plasma [facility] Heart limited [facility] Payers Date Payer Category Payer Self-pay [id number] 2023 Medicare [id number] 2015 [id number] Unknown [id number] 2.16.8 [id number] Unknown [id number] 2.16.8 [id number] Unknown [id number] 2.16.8 [id number] Unknown [id number] 2.16.8 [id number] Unknown [id number] 2.16.8 [id number] Unknown [id number] 2.16.8 [id number] Unknown [id number] 2.16.8 [id number] Unknown [id number] 2.16.8 [id number] Unknown [id number] 2.16.8 [id number] Unknown [id number] 2.16.8 [id number] Unknown [id number] 2.16.8 [id number] Unknown [id number] 2.16.8 [id number] Social History Date Type Detail [facility] Work Phone: Start: 1955 Sex Assigned At Female [facility] Start: 01-21-2023 End: 08-10-2023 Tobacco smoking status NHIS Unknown if ever smoked [facility] Start: 08-10-2023 [facility] Sex Female [facility] Evaluation note 11-27-2022 Note Date & Type Note Facility 11-27-2022 Evaluation note Diagnosis Onset Date Cardiac defibrillator in place November 27, 2022 acute History of coronary artery stent placement November 25, 2022 acute HTN (hypertension), benign a cute Hyperlipidemia acute LV dysfunction acute Ventricular tachycardia [facility] Work Phone: Evaluation note 11-27-2022 Note Date & Type Note Facility 11-27-2022 Evaluation note Diagnosis Onset Date Implantable cardioverter-defibrillator (ICD) in situ acute Ischemic cardiomyopathy acut e Sudden cardiac arrest acute Cardiac defibrillator in place November 27, 2022 acute History of coronary artery stent placement November 25, 2022 acute HTN (hypertension), benign a cute Hyperlipidemia acute LV dysfunction acute Ventricular tachycardia [facility] Work Phone: Evaluation note 11-27-2022 Note [...] 2 025 9:03am LV dysfunction acute September 01 2 025 9:03am Ventricular tachycardia acute September 01, 2024 9:03am [place] [facility] Work Phone: Evaluation note Note Date & Type Note Facility Evaluation note No assessment information availa [facility] Work Phone: Reason for referral (narrative) Note Date & Type Note Facility Reason for referral (narrative) No reason for referral information available [place] [facility] [facility] Work Phone: Chief Complaint and Reason for Visit Chief Complaint Amb Documentation Amb Documentation GA HX (SHIRA) 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 Thomas Hollis MD Attending Provider Active oDnta CAIN MD Primary Care Provider Active Team [...] MD Primary Care Provider Active Rayne Escobar SLUBBER RUNNER, SLUBBER RUNNER-C Attending Provider Active Team Status: Inactive Member Role Status Dates Dr. Donta Sweet MD Attending Provider Active Donta CAIN MD Primary Care Provider Active Team Status: Inactive Member Role Status Dates Dr. Thomas Hollis MD Attending Provider, Referring Pro vider Active Dr. Donta Sweet MD Primary Care Provider Active Team Status: Inactive Member Role Status Dates Donta CAIN MD Referring Provider Active Lori Pittman Active Dr. Donta Sweet MD Primary Care Provider Active Dr. Thomas Hollis MD Attending Provider Active Team Status: Inactive Member Role Status Dates Donta CAIN MD Referring Provider Active Rayne Escobar SLUBBER RUNNER, SLUBBER RUNNER-C Attending Provider Active Dr. Donta Sweet MD Primary Care Provider Active Team Status: Inactive Member Role Status Dates Dr. Donta Sweet MD Primary Care Provider Active Dr. Thomas Hollis MD Attending Provider Active Team Status: Inactive Member Role Status Dates Dr. Donta Sweet MD Primary Care Provider Active Rayne Escobar SLUBBER RUNNER, SLUBBER RUNNER-C Attending Provider, Referring P rovider Active Team Status: Active Member Role Status [...] Care Provider, Referring Provider Active Rayne Escobar SLUBBER RUNNER, SLUBBER RUNNER-C Attending Provider Active Team Status: Active Member [...] 01, 2024 End: September 01, 2024 Britta Richmond PA, PA Attending Provider Active Start: September 01, [...] 01, 2024 End: September 01, 2024 Britta Richmond PA PA Attending Provider Active Start: September 01, [...] ized section and content) DATE CREATED AUTHOR 03/09/2025 [facility] FOR RECORDS PERTAINING TO PATIENTS WHO ARE [...] BE BASED ON THE PRIMARY CLINICAL RECORDS. [employer] provides no warranty or guarantee of the accuracy or completeness of information in this document.
== END | disposition home or self-care (01) ==
LOC: CVS 07:33
PROVIDERS: PCP Family Medicine Geriatric Medicine; Referring Provider Physician Assistant Medical; Visit Provider Physician Assistant Medical
DX: I25.5 Ischemic cardiomyopathy (principal)
CPT/HCPCS: 93306; Q9957; A4216; C8929